=== PATIENT | male | born 1950 | race Caucasian/White ===

== ENCOUNTER → 2018-03-24 13:01 | Outpatient (CLI) | payer MEDICARE, OTHER, SELFPAY ==
--- NOTE | 2018-03-24 | DI.CT.S_ITS ---
PROCEDURE: CT ABDOMEN PELVIS WO/W CON INDICATIONS: Gross hematuria TECHNIQUE: Optional 5 mm thick noncontrast images acquired from the diaphragm to the symphysis pubis. After the administration of intravenous contrast, 5 mm thick images acquired from the diaphragm to the symphysis pubis after a 10-minute delay. 2 mm thick coronal and sagittal reformats were then performed of the kidneys and ureters. For radiation dose reduction, the following was used: automated exposure control, adjustment of mA and/or kV according to patient size. COMPARISON: [facility], MR, ABDOMEN W&WO CONTRAST, 04/18/2017, 11:02. [facility], CT, ABDOMEN/PELVIS WITH CONTRAST, 09/13/2013, 20:13. FINDINGS: Image quality: Excellent. Lung bases: Lung bases are clear. Heart size is normal. Urinary system: The left kidney is surgically absent. The right kidney is normal in size without hydronephrosis. Cortical scarring is present at the superior pole of the right kidney suggesting prior infection or infarct. A subcentimeter low-density cystic lesion is present within the midpole of the right kidney. 2 nonobstructing 5 mm in diameter calculi are present within the lower pole the right kidney. No perinephric fat stranding. Normal right renal enhancement. The calyces of the right kidney demonstrate normal morphology. There is a questionable soft tissue mass within the left renal fossa versus nondilated small bowel (series 3, image 40). Eccentric wall thickening is present along the posterior left bladder wall. The bladder wall is otherwise thin throughout. Other solid organs: Liver is normal in size and enhancement. A low density subcentimeter cystic lesion is present within hepatic segment unchanged from the study from 2013. Gallbladder is unremarkable. Biliary system is non dilated. Pancreas enhances normally. Spleen is likely absent. No adrenal nodules. Peritoneum and bowel: Bowel loops demonstrate normal wall thickness and caliber. The appendix is thin walled and gas filled. Anastomotic suture is present within the descending colon suggesting prior partial colectomy. No free fluid or air. Nodes and vessels: No retroperitoneal or mesenteric adenopathy by size criteria. Aorta and inferior vena cava are normal in size. There are scattered atheromatous calcifications throughout the aorta and iliac arteries bilaterally. Abdominal wall: No ventral hernias. Pelvis: No pathologic free pelvic fluid. No inguinal hernias or adenopathy. A penile implant pump is present in the right lower quadrant. The prostate has a heterogeneous, enlarged appearance and extends into the floor of the bladder. Bones: No suspicious bony lesions. No vertebral body compression fractures. Severe degenerative changes are present throughout the lumbar spine. IMPRESSION: 1. Nonobstructive right nephrolithiasis. 2. Questionable soft tissue mass in the bed of the prior left nephrectomy versus splenule or redundant loop of small bowel. CT of the abdomen after oral contrast administration is recommended to differentiate true mass from small bowel. 3. No right hydronephrosis, hydroureter, or right ureterolithiasis. 4. Markedly enlarged, heterogeneous prostate. Differential considerations include hypertrophy and neoplasm. 5. Eccentric thickening of the posterior left bladder wall. Neoplasm cannot be excluded and direct visualization may be helpful to further characterize this finding. Dictated by: Clemencia Shrestha M.D. on 03/24/2018 at 17:03 Approved by: Clemencia Shrestha M.D. on 03/24/2018 at 17:16
== END ==
PROVIDERS: PCP Family Medicine; Visit Provider Urology
DX: N20.0 Calculus of kidney (principal)
CPT/HCPCS: 74178; Q9967

== ENCOUNTER → 2018-04-11 09:13 | Outpatient (CLI) | payer MEDICARE, OTHER, SELFPAY ==
--- NOTE | 2018-04-11 09:18 | DI.CT.S_ITS ---
PROCEDURE: CT ABDOMEN PELVIS W CON INDICATIONS: LEFT UPPER QUADRANT ABDOMINAL SWELLING, MASS LUMP TECHNIQUE: After the administration of oral contrast and intravenous contrast, 5 mm thick sections acquired from the diaphragms to the symphysis. 5 mm thick coronal and sagittal reformats were acquired. For radiation dose reduction, the following was used: automated exposure control, adjustment of mA and/or kV according to patient size. COMPARISON: [facility], CT, ABDOMEN/PELVIS WITH CONTRAST, 09/13/2013, 20:13. [facility], MR, ABDOMEN W&WO CONTRAST, 04/18/2017, 11:02. [facility], CT, CT ABDOMEN PELVIS WO/W CON, 03/24/2018, 13:32. FINDINGS: Image quality: Excellent. ABDOMEN: Lung bases: Lung bases are clear. Heart size is normal. Solid organs: Liver is normal in size and enhancement. Gallbladder shows normal wall thickness. Biliary system is non-dilated. Pancreas enhances normally. Spleen is surgically absent. No right adrenal nodules. Left kidney and adrenal gland are surgically absent. No right hydronephrosis, nonobstructive right renal calculi again noted in the lower pole collecting system. Chronic scarring in the upper pole of the right kidney. Again noted in the left renal fossa, immediately medial to the tail of pancreas, is a circumscribed, enhancing soft tissue mass that measures 3.1 x 5.1 cm on current study. There is opacified bowel overlying the mass, but the mass does not represent bowel. It is likely a splenic remnant or splenule. Bowel and peritoneum: Stomach, small and large bowel loops are normal in caliber and wall thickness. Prior partial descending colon resection again noted. No free fluid or air. Nodes and vessels: No retroperitoneal or mesenteric adenopathy by size criteria. Aorta and inferior vena are normal in caliber. Miscellaneous: No ventral hernias. PELVIS: Genitourinary: Bladder wall thickness appears normal, the irregularity along the left lateral margin less apparent on current study. Prostatic enlargement the with heterogeneous enhancement and dystrophic calcifications protruding into the minor base is again noted. Penile prosthesis again noted. Miscellaneous: No inguinal hernias or adenopathy. Bones: No suspicious bony lesions. Degenerative disc disease and postoperative changes lumbar spine with grade 1 anterolisthesis at L4-5. Mild anterior wedging T10, T11 and T12. No acute vertebral body compression fractures. IMPRESSION: 1. Postoperative changes of prior bowel resection, left nephrectomy and splenectomy. The 3 x 5 cm soft tissue mass in the left renal fossa is likely a splenic remnant or splenule. Possibility of tumor mass cannot be excluded. The mass might be visible by sonography for future followup, otherwise noncontrast CT abdomen and 6-12 months is advised.. 2. Right nephrolithiasis without hydronephrosis. 3. Marked enlargement of the prostate. Prostate cancer cannot be excluded. 4. Status post penile prosthesis. Dictated by: Vishal Chowdhury M.D. on 04/11/2018 at 12:54 Approved by: Vishal Chowdhury M.D. on 04/11/2018 at 13:30
[2018-04-11 09:45] LABS: BUN Creatinine Ratio 30.9 (6-22); Estimated Glomerular Filt Rate > 60.0 mL/min (>60)
== END ==
PROVIDERS: PCP Family Medicine; Visit Provider Urology
DX: R19.02 Left upper quadrant abdominal swelling, mass and lump (principal); N20.0 Calculus of kidney; N40.0 Benign prostatic hyperplasia without lower urinary tract symptoms
CPT/HCPCS: 36415; 74178; 82565; 84520

== ENCOUNTER 2019-09-09 09:15 | Inpatient (IN) | payer MEDICARE, OTHER, SELFPAY ==
[2019-09-09] VITALS (18 sets, daily range): BP systolic 87–195; BP diastolic 43–115; PULSE 64–94; RESP 15–23; TEMP 36.1–37.4; O2SAT 92–100; BMI 28.6
--- NOTE | 2019-09-09 | PATH_ITS ---
[facility] Accession Number: [id number] . 01 Material submitted: . back - BACK . 01 Clinical history: . ABSCESS TISSUE . 02 Diagnosis: Back, Abscess Tissue, Biopsy: Multiple fragments of keratin flakes and scant active inflammation, consistent with epidermoid inclusion cyst contents. [facility] 09/11/2019 1128 Local . 02 Electronically signed: . Modesta Patton MD, Pathologist NPI- [id number] . 01 Gross description: . BACK: Received in formalin is 1 fragment of luke friable tissue measuring 2.0 x 1.5 x 0.5 cm. Tissue is inked. Specimen is sectioned and submitted in its entirety in 1 cassette. /[facility] [place] 09/10/2019 1812 Local . 02 Pathologist provided ICD-10: L02.91 . 02 CPT . 140139 Performed at: 01 [facility] [address] [place] [address], [place], [place] [id number] MD aCrlos Walker MD Phone: [phone] [facility]formed at: [facility] [address] [place], [place] [id number] MD Modesta Patton MD Phone: [phone]
--- NOTE | 2019-09-09 09:26 | ED.BACK ---
HPI - Back Pain/Injury General Chief Complaint: Back Pain/Injury Stated Complaint: ? Ibrance problems Time Seen by Provider: 09/09/19 09:20 Source: patient Mode of arrival: Ambulatory Limitations: no limitations History of Present Illness HPI Narrative: Male nonsmoker with history of an unspecified type of cancer takes chemotherapy 3 weeks on and 1 week off, which is managed by MD Fatima in [place] presents with severe back pain worsening over the past few days. He denies any injury. He denies any systemic findings such as fever or shaking chills. He denies any other symptoms such as dizziness, weakness or lightheadedness. He is a very poor historian, he states he has been trying to get to the hospital for a few days but his pain was too bad. He has a scar on his back but doesn't know what his surgical history is. He states his inability to answer these questions is normal for him. Complaint: back pain Onset (ago): day(s) Duration: constant Similar Symptoms Previously: No Location: lumbar spine and thoracic spine Severity: moderate Quality: burning and sharp Radiation: none Relieving factors: none Exacerbating factors: walking Associated symptoms: denies other symptoms Related Data Home Medications Medication Instructions Recorded Confirmed palbociclib [Ibrance] 125 mg PO DAILY 09/09/19 09/09/19 Allergies Allergy/AdvReac Type Severity Reaction Status Date / Time No Known Drug Allergies Allergy Verified 09/09/19 09:25 Review of Systems Constitutional Constitutional: Denies chills, Denies fatigue, Denies fever(s), Denies frequent falls, Denies lethargy and Denies weakness Eyes Eyes: Denies change in vision, Denies eye discharge, Denies irritation and Denies loss of vision ENT Ears, Nose, Mouth, and Throat: Denies change in voice, Denies dizziness, Denies neck pain, Denies sore throat and Denies throat swelling Cardiovascular Cardiovascular: Denies chest pain, Denies irregular heart rhythm, Denies lightheadedness, Denies palpitations, Denies dyspnea, Denies dyspnea on exertion and Denies orthopnea Respiratory Respiratory: Denies cough, Denies dyspnea, Denies dyspnea on exertion and Denies wheezing Gastrointestinal Gastrointestinal: Denies abdominal pain, Denies change in bowel habits, Denies diarrhea, Denies nausea and Denies vomiting Genitourinary Genitourinary: Denies hematuria, Denies flank pain, Denies urinary incontinence and Denies urinary urgency Musculoskeletal Musculoskeletal: Reports back pain, Denies muscle weakness, Denies neck pain, Denies numbness and Denies tingling Integumentary/Breasts Skin/Breast: Denies pruritus, Denies erythema, Denies rash and Denies wounds Neurologic Neurologic: Denies behavioral changes, Denies confusion, Denies dizziness, Denies frequent falls, Denies loss of vision, Denies numbness, Denies tingling and Denies weakness Psychiatric Psychiatric: Denies anxiety, Denies behavioral changes, Denies confusion, Denies depression, Denies homicidal ideation and Denies suicidal ideation Endocrine Endocrine: Denies fatigue, Denies flushing and Denies palpitations Hematologic/Lymphatic Hematologic/Lymphatic: Denies easy bruising Allergic/Immunologic Allergic/Immunologic: Denies urticaria, Denies throat swelling and Denies wheezing Patient History Medical History (Updated 09/09/19 @ 17:41 by Lida Hussein RN) Sarcoma of retroperitoneum (Acute) Spinal cord injury (Acute) Surgical History (Updated 09/09/19 @ 17:37 by Ramon Castellano MD) H/O splenectomy (Acute) Hx of partial adrenalectomy (Acute) Social History household members: other Smoking Status: Former smoker alcohol intake: never Exam Narrative Exam Narrative: GENERAL: [69] year old patient appears stated age. Well-nourished, well-developed patient, in obvious pain HEAD: Atraumatic. Normocephalic. EYES: Pupils equal round and reactive. Extraocular motions intact. No scleral icterus. No injection or drainage. ENT: Nose without bleeding, purulent drainage. Throat without erythema, tonsillar hypertrophy or exudate. Airway patent. NECK: Trachea midline. Non tender CARDIOVASCULAR: Regular rate and rhythm without murmurs, gallops, or rubs. RESPIRATORY: Clear to auscultation. Breath sounds equal bilaterally. No wheezes, rales, or rhonchi. GASTROINTESTINAL: Abdomen soft, non-tender, nondistended. EXTREMITIES: No edema or joint tenderness. BACK: Midline incision with warm, red and tender, fluctuant mass at the superior aspect, patient yells in pain when touched even lightly NEURO: AOx3. SKIN: No rash or erythema of visible areas Initial Vital Signs Initial Vital Signs: Vital Signs Temperature 96.9 F L 09/09/19 09:25 Pulse Rate 86 09/09/19 09:25 Respiratory Rate 16 09/09/19 09:25 Blood Pressure 107/72 09/09/19 09:25 Pulse Oximetry 97 09/09/19 09:25 Course Orders Ordered: ED Orders 09/09/19 10:10 Basic Metabolic Panel Stat C-Reactive Protein Quant Stat Complete Blood Count AUTO DIFF Stat Erythrocyte Sedimentation Rate Stat Lactate (Lactic Acid) Stat Procalcitonin Stat 09/09/19 10:40 Blood Culture Stat 09/09/19 11:15 CT abdomen pelvis w con Stat 09/09/19 11:30 Urinalysis and Microscopic Stat Heparin Sodium (Porcine) (Heparin) 5,000 unit SUBCUT BID YOKASTA Lactated Ringer's (Lactated Ringers) 1,000 mls @ 42 mls/hr IV NOW ONE Stop: 09/10/19 17:58 Last Admin: 09/09/19 18:11 Dose: 42 mls/hr Documented by: ROBEL Discontinued Medications Vancomycin HCl/Dextrose (Vancomycin) 1,500 mg in 300 mls @ 200 mls/hr IV NOW ONE Stop: 09/09/19 18:21 Piperacillin/Tazobactam/Dextrose (Zosyn) 3.375 gm in 50 mls @ 100 mls/hr IV NOW ONE Stop: 09/09/19 17:21 Last Infusion: 09/09/19 18:25 Dose: 0 mls/hr Documented by: Admin: 09/09/19 18:15 Dose: 100 mls/hr Documented by: ALAINA Toussaint Consultation #1: Upon receipt of CT scan I contacted the patient's oncologist at [facility]. She was actually quite pleased with the progress of the underlying mass and states that based on the description it would seem that the chemotherapy is in fact working. Consultation #2: general surgery consulted. will take to OR, admit to medicine. Vital Signs Vital signs: Vital Signs - 8 hr 09/09/19 09:25 Temperature 96.9 F L Pulse Rate 86 Respiratory Rate 16 Blood Pressure 107/72 Pulse Oximetry 97 MDM - Back Pain/Injury Lab Data Result diagrams: 09/09/19 10:10 09/09/19 10:10 Labs: Lab Results 09/09/19 09/09/19 09/09/19 Range/Units 10:10 10:10 10:10 WBC 7.6 (4.5-11.0) X10^3/uL RBC 3.73 L (4.5-5.9) X10^6/uL Hgb 12.2 L (13.5-17.5) g/dL Hct 36.6 L (41-53) % MCV 98.2 (80-100) fL MCH 32.7 (26-34) PG MCHC 33.3 (30-36) % RDW 20.0 H (11.6-14.8) % Plt Count 278 (150-400) X10^3/uL Neut % (Auto) 78.8 H (50-75) % Lymph % (Auto) 14.8 L (25-40) % [place] % (Auto) 4.3 (3-14) % Eos % (Auto) 1.2 L (2-4) % Baso % (Auto) 0.9 (0-2) % Neut # (Auto) 6000 (0259-7280) /uL Lymph # (Auto) 1100 (7229-0240) /uL [place] # (Auto) 300 (0-900) /uL Eos # (Auto) 100 (0-450) /uL Baso # (Auto) 100 (0-100) /uL ESR 65 H (0-15) MM/HR Sodium (137-145) mmol/L Potassium (3.4-5.1) mmol/L Chloride (98-107) mmol/L Carbon Dioxide (22-32) mmol/L BUN (9-20) mg/dL Creatinine (0.66-1.25) mg/dL Estimated GFR (>60) mL/min BUN/Creatinine Ratio (6-22) Glucose (80-110) mg/dL Lactate (0.7-2.1) mmol/L Calcium (8.4-10.2) mg/dL C-Reactive Protein 5.8 H (<1.0) mg/dL Procalcitonin (<0.5) ng/mL Urine Color Urine Appearance Urine pH (4.5-8.0) Ur Specific [place] (1.000-1.035) Urine Protein (Negative) Urine Glucose (UA) (Negative) g/dL Urine Ketones (NEGATIVE) Urine Occult Blood (Negative) Urine Nitrate (Negative) Urine Bilirubin (NEGATIVE) Urine Urobilinogen (0.2) E.U./dL Ur Leukocyte Esterase (NEGATIVE) Urine RBC (0-5/HPF) Urine WBC (0-5/HPF) Urine Bacteria (None) Ur Culture Indicated? 09/09/19 09/09/19 09/09/19 Range/Units 10:10 10:10 10:10 WBC (4.5-11.0) X10^3/uL RBC (4.5-5.9) X10^6/uL Hgb (13.5-17.5) g/dL Hct (41-53) % MCV (80-100) fL MCH (26-34) PG MCHC (30-36) % RDW (11.6-14.8) % Plt Count (150-400) X10^3/uL Neut % (Auto) (50-75) % Lymph % (Auto) (25-40) % [place] % (Auto) (3-14) % Eos % (Auto) (2-4) % Baso % (Auto) (0-2) % Neut # (Auto) (7553-8755) /uL Lymph # (Auto) (5039-5490) /uL [place] # (Auto) (0-900) /uL Eos # (Auto) (0-450) /uL Baso # (Auto) (0-100) /uL ESR (0-15) MM/HR Sodium 143 (137-145) mmol/L Potassium 4.2 (3.4-5.1) mmol/L Chloride 104 (98-107) mmol/L Carbon Dioxide 30 (22-32) mmol/L BUN 26 H (9-20) mg/dL Creatinine 1.50 H (0.66-1.25) mg/dL Estimated GFR 46.5 L (>60) mL/min BUN/Creatinine Ratio 17.3 (6-22) Glucose 124 H (80-110) mg/dL Lactate 1.2 (0.7-2.1) mmol/L Calcium 9.5 (8.4-10.2) mg/dL C-Reactive Protein (<1.0) mg/dL Procalcitonin 0.07 (<0.5) ng/mL Urine Color Urine Appearance Urine pH (4.5-8.0) Ur Specific [place] (1.000-1.035) Urine Protein (Negative) Urine Glucose (UA) (Negative) g/dL Urine Ketones (NEGATIVE) Urine Occult Blood (Negative) Urine Nitrate (Negative) Urine Bilirubin (NEGATIVE) Urine Urobilinogen (0.2) E.U./dL Ur Leukocyte Esterase (NEGATIVE) Urine RBC (0-5/HPF) Urine WBC (0-5/HPF) Urine Bacteria (None) Ur Culture Indicated? 09/09/19 Range/Units 11:30 WBC (4.5-11.0) X10^3/uL RBC (4.5-5.9) X10^6/uL Hgb (13.5-17.5) g/dL Hct (41-53) % MCV (80-100) fL MCH (26-34) PG MCHC (30-36) % RDW (11.6-14.8) % Plt Count (150-400) X10^3/uL Neut % (Auto) (50-75) % Lymph % (Auto) (25-40) % [place] % (Auto) (3-14) % Eos % (Auto) (2-4) % Baso % (Auto) (0-2) % Neut # (Auto) (1107-4021) /uL Lymph # (Auto) (5190-4933) /uL [place] # (Auto) (0-900) /uL Eos # (Auto) (0-450) /uL Baso # (Auto) (0-100) /uL ESR (0-15) MM/HR Sodium (137-145) mmol/L Potassium (3.4-5.1) mmol/L Chloride (98-107) mmol/L Carbon Dioxide (22-32) mmol/L BUN (9-20) mg/dL Creatinine (0.66-1.25) mg/dL Estimated GFR (>60) mL/min BUN/Creatinine Ratio (6-22) Glucose (80-110) mg/dL Lactate (0.7-2.1) mmol/L Calcium (8.4-10.2) mg/dL C-Reactive Protein (<1.0) mg/dL Procalcitonin (<0.5) ng/mL Urine Color Yellow Urine Appearance Clear Urine pH 5.0 (4.5-8.0) Ur Specific [place] 1.020 (1.000-1.035) Urine Protein Negative (Negative) Urine Glucose (UA) Negative (Negative) g/dL Urine Ketones Negative (NEGATIVE) Urine Occult Blood Negative (Negative) Urine Nitrate Negative (Negative) Urine Bilirubin Negative (NEGATIVE) Urine Urobilinogen 0.2 (0.2) E.U./dL Ur Leukocyte Esterase Negative (NEGATIVE) Urine RBC None seen (0-5/HPF) Urine WBC 0-1/hpf (0-5/HPF) Urine Bacteria None seen (None) Ur Culture Indicated? Cult not indicated Discharge Plan Departure Patient Disposition: Admitted as Observation Clinical Impression: Abscess of skin or subcutaneous tissue Qualifiers: Site of cutaneous abscess: trunk Site of cutaneous abscess of trunk: back Qualified Code(s): L02.212 - Cutaneous abscess of back [any part, except buttock] Discharge Date/Time: 09/09/19 17:09 Admit Date/Time: 09/09/19 16:41 Admit Provider: Cipriano Cruz
[2019-09-09 10:25] LABS: Add Manual Diff / Slide Review NO; Basophils Absolute Auto 100 /uL (0-100); Basophils Percent Auto 0.9 % (0-2); Eosinophils Absolute Auto 100 /uL (0-450); Eosinophils Percent Auto 1.2 % (2-4); Hematocrit 36.6 % (41-53); Hemoglobin 12.2 g/dL (13.5-17.5); Lymphocytes Absolute Auto 1100 /uL (1100-4500); Lymphocytes Percent Auto 14.8 % (25-40); Mean Corpuscular HGB Conc 33.3 % (30-36); Mean Corpuscular Hemoglobin 32.7 PG (26-34); Mean Corpuscular Volume 98.2 fL (80-100); Monocytes Absolute Auto 300 /uL (0-900); Monocytes Percent Auto 4.3 % (3-14); Neutrophils Absolute Auto 6000 /uL (1500-7000); Neutrophils Percent Auto 78.8 % (50-75); Platelet Count 278 X10^3/uL (150-400); Red Blood Cell Count 3.73 X10^6/uL (4.5-5.9); White Blood Cell Count 7.6 X10^3/uL (4.5-11.0)
[2019-09-09 10:38] LABS: Erythrocyte Sedimentation Rate 65 MM/HR (0-15)
[2019-09-09 10:41] LABS: Lactate (Lactic Acid) 1.2 mmol/L (0.7-2.1)
[2019-09-09 10:42] LABS: BUN Creatinine Ratio 17.3 (6-22); Blood Urea Nitrogen 26 mg/dL (9-20); Calcium 9.5 mg/dL (8.4-10.2); Carbon Dioxide 30 mmol/L (22-32); Chloride 104 mmol/L (98-107); Estimated Glomerular Filt Rate 46.5 mL/min (>60); Glucose 124 mg/dL (80-110); HEMOLYSIS < 15 (0-50); Potassium 4.2 mmol/L (3.4-5.1); Sodium 143 mmol/L (137-145)
[2019-09-09 11:05] LABS: Procalcitonin 0.07 ng/mL (<0.5)
--- NOTE | 2019-09-09 11:12 | PC.NURSE ---
pt states he has a cancer history where the pain is currently in back.
--- NOTE | 2019-09-09 11:15 | DI.CT.S_ITS ---
PROCEDURE: CT ABDOMEN PELVIS W CON INDICATIONS: severe back pain, swelling, redness, also known CA TECHNIQUE: After the administration of intravenous contrast, 5 mm thick sections acquired from the diaphragm to the symphysis. 5 mm coronal and sagittal reformats were acquired. For radiation dose reduction, the following was used: automated exposure control, adjustment of mA and/or kV according to patient size. COMPARISON: [facility], CT, CT ABDOMEN PELVIS W CON, 04/11/2018, 11:22. FINDINGS: Image quality: Excellent. ABDOMEN: Lung bases: Lung bases are clear. Heart size is normal. Solid organs: Liver is enlarged with steatosis. Gallbladder is contracted the. Biliary system is non dilated. Pancreas enhances normally. Within the left upper quadrant, there is a low attenuation mass measuring 11.4 cm AP by 10.5 cm transverse.. Hounsfield units measure approximately 45 In addition, there is a more central focus of low attenuation measuring approximately 4 cm with faint rim enhancement. No adrenal nodules. Left adrenal gland has been removed. Left nephrectomy is present. Soft tissue masses are present within the surgical site these were present on prior exam and appear similar to minimally enlarged. Right kidney is present with nonobstructing stones, unchanged. Peritoneum and bowel: Bowel loops demonstrate normal wall thickness and caliber. No free fluid or air. Nodes and vessels: No retroperitoneal or mesenteric adenopathy by size criteria. Aorta and inferior vena cava are normal in size. Miscellaneous: No ventral hernias. There is a focus of fluid with defined ring enhancement in the posterior subcutaneous tissues extending to the skin surface at approximately the level of T12 measuring 24 cm AP by 39 mm transverse. There is an ill-defined fluid without surrounding enhancement within the midline extend within the subcutaneous tissues to the level of the sacrum without well-defined rim enhancement. Largest collection of fluid inferior to the above defined circumscribed area of enhancement measures approximately 1.4 cm AP by 11.4 cm transverse. Fluid does extend to the skin surface in the left posterior midline position at approximately the level at L5. PELVIS: Genitourinary: Bladder wall thickness is normal. Prostate gland is enlarged. Miscellaneous: No inguinal hernias or adenopathy. Left vastus and rectus musculature lipomas are unchanged. Bones: No suspicious bony lesions. No vertebral body compression fractures. IMPRESSION: 1. Left nephrectomy and adrenalectomy with left upper quadrant masses appearing unchanged versus minimally increased in size compared to prior exam. In addition, a large left upper quadrant mass is identified with suspected areas of central necrosis, which is new compared to prior exam. 2. Focal areas of enhancing fluid within the subcutaneous fat at the thoracolumbar junction most consistent with abscess is identified. In addition, fluid is also noted tracking within the dorsal soft tissues to the level of the sacrum. However, more inferior is a fluid do not demonstrate rim enhancement and appear suggestive of seroma or potentially developing abscess. The above findings were discussed with Dr. Deshaun Vasquez on 09/09/19 at 12:24 PM. Dictated by: Verenice Her M.D. on 09/09/2019 at 12:23 Approved by: Verenice Her M.D. on 09/09/2019 at 13:08
[2019-09-09 11:35] LABS: C-Reactive Protein Quant 5.8 mg/dL (<1.0)
[2019-09-09 11:43] LABS: Bacteria Urine None Seen; RBC Urine None Seen (0-5/HPF)
[2019-09-09 11:45] LABS: Appearance Urine UA CLEAR; Bilirubin Urine UA NEGATIVE (NEGATIVE); Color Urine UA YELLOW; Glucose Urine UA NEGATIVE (Negative); Ketones Urine UA NEGATIVE (NEGATIVE); Leukocyte Esterase Urine UA NEGATIVE (NEGATIVE); Nitrite Urine UA NEGATIVE (Negative); Occult Blood Urine UA NEGATIVE (Negative); Protein Urine UA NEGATIVE (Negative); Urobilinogen Urine UA 0.2 E.U./dL (0.2)
[2019-09-09 11:52] LABS: WBC Urine 0-1/HPF (0-5/HPF)
[2019-09-09 12:08] LABS: Culture Indicated Urine Cult Not Indicated
--- NOTE | 2019-09-09 12:32 | PC.NURSE ---
pt exits room and states hes going to give his dog a drink of water, hes had 3 glasses of water so hes going. explained to [facility] policy. pt states i dont care, my dog is more important. asked to take out his iv. pt raises voice and zips up his coat and states i dont care what you say im going, begins to zip up his coat and walks out. pt having inappropriate behavior with staff. pt has been out once already without consenting so his IV can be removed.
--- NOTE | 2019-09-09 17:29 | P.CONS_ITS ---
History of Present Illness Consult details Date Patient Seen: 09/09/19 Time Patient Seen: 17:38 Chief complaint: ?Ibrance problems Reason for consult: back abscess Narrative: This is a 69-year-old male on chemotherapy for a retroperitoneal sa rcoma who presents with a back abscess. He began having back pain several days ago no history of recent trauma or back injury he has a remote history of laminectomy done at least a decade ago. His pain became increasingly severe promting his ER visit. No fever rigors nausea, weakness numbness or tingling, bowel or bladder incontinence. 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 It is unclear when this was performed it was done at the [facility] in [place]. He has residual disease in his left upper abdominal quandrant and he actively followed by MD Fatima, receiving an oral chemotherapy medication of unknown name. De nies any major cardiac, pulmonary or renal disease, no anticoagulants. [facility] Medical History (Updated 09/09/19 @ 17:37 by Ramon Castellano MD) Sarcoma of retroperitoneum (Acute) Surgical History (Updated 09/09/19 @ 17:37 by Ramon Castellano MD) H/O splenectomy (Acute) Hx of partial adrenalectomy (Acute) Social History household members: other Smoking Status: Former smoker alcohol intake: never Meds Home Medications and Allergies Home Medications Medication Instructions Recorded Confirmed Type palbociclib [Ibrance] 125 mg PO DAILY 09/09/19 09/09/19 History Allergies Allergy/AdvReac Type Severity Reaction Status Date / Time No Known Drug Allergies Allergy Verified 09/09/19 09:25 Exam Vital Signs (past 8 hours): - 09/09/19 16:55 Pulse Rate 77 Respiratory Rate 15 Blood Pressure [Left Arm] 117/73 Pulse Oximetry 96 Oxygen Delivery Method Room Air Narrative Exam Narrative: General-no acute distress, well nourished HEENT-moist mucous membranes, no scleral icterus Neck-supple, no lymphadenopathy Chest- non labored respirations, clear to auscultation bilaterally Cardiac-regular rate no peripheral edema Abdomen-soft, nontender, non distended Back-Warm fluctuant tender abscess thoracic to sacrum. Extremities-warm, well perfused Neurological-alert and oriented, no focal deficits Objective Labs Result Diagrams: 09/09/19:10 09/09/19 10:10 Labs: Laboratory Results - last 24 hr 09/09/19 09/09/19 09/09/19 10:10 10:10 10:10 WBC 7.6 RBC 3.73 L Hgb 12.2 L Hct 36.6 L MCV 98.2 MCH 32.7 MCHC 33.3 RDW 20.0 H Plt Count 278 Neut % (Auto) 78.8 H Lymph % (Auto) 14.8 L [place] % (Auto) 4.3 Eos % (Auto) 1.2 L Baso % (Auto) 0.9 Neut # (Auto) 6000 Lymph # (Auto) 1100 [place] # (Auto) 300 Eos # (Auto) 100 Baso # (Auto) 100 ESR 65 H Sodium Potassium Chloride Carbon Dioxide BUN Creatinine Estimated GFR BUN/Creatinine Ratio Glucose Lactate Calcium C-Reactive Protein 5.8 H Procalcitonin Urine Color Urine Appearance Urine pH Ur Specific [place] Urine Protein Urine Glucose (UA) Urine Ketones Urine Occult Blood Urine Nitrate Urine Bilirubin Urine Urobilinogen Ur Leukocyte Esterase Urine RBC Urine WBC Urine Bacteria Ur Culture Indicated? 09/09/19 09/09/19 09/09/19 10:10 10:10 10:10 WBC RBC Hgb Hct MCV MCH MCHC RDW Plt Count Neut % (Auto) Lymph % (Auto) [place] % (Auto) Eos % (Auto) Baso % (Auto) Neut # (Auto) Lymph # (Auto) [place] # (Auto) Eos # (Auto) Baso # (Auto) ESR Sodium 143 Potassium 4.2 Chloride 104 Carbon Dioxide 30 BUN 26 H Creatinine 1.50 H Estimated GFR 46.5 L BUN/Creatinine Ratio 17.3 Glucose 124 H Lactate 1.2 Calcium 9.5 C-Reactive Protein Procalcitonin 0.07 Urine Color Urine Appearance Urine pH Ur Specific [place] Urine Protein Urine Glucose (UA) Urine Ketones Urine Occult Blood Urine Nitrate Urine Bilirubin Urine Urobilinogen Ur Leukocyte Esterase Urine RBC Urine WBC Urine Bacteria Ur Culture Indicated? 09/09/19 11:30 WBC RBC Hgb Hct MCV MCH MCHC RDW Plt Count Neut % (Auto) Lymph % (Auto) [place] % (Auto) Eos % (Auto) Baso % (Auto) Neut # (Auto) Lymph # (Auto) [place] # (Auto) Eos # (Auto) Baso # (Auto) ESR Sodium Potassium Chloride Carbon Dioxide BUN Creatinine Estimated GFR BUN/Creatinine Ratio Glucose Lactate Calcium C-Reactive Protein Procalcitonin Urine Color Yellow Urine Appearance Clear Urine pH 5.0 Ur Specific [place] 1.020 Urine Protein Negative Urine Glucose (UA) Negative Urine Ketones Negative Urine Occult Blood Negative Urine Nitrate Negative Urine Bilirubin Negative Urine Urobilinogen 0.2 Ur Leukocyte Esterase Negative Urine RBC None seen Urine WBC 0-1/hpf Urine Bacteria None seen Ur Culture Indicated? Cult not indicated Assessment & Plan Assessment & Plan narrative: This is a 69-year-old male on active chemotherapy for a retroperitoneal sarcoma who presents with a soft tissue abscess of the back. Afebrile hemodynamically stable white count 8, CT abdomen pelvis reviewed demonstrates a large 30 cm abscess within the subcutaneous tissues of the midline back. Does not appear to involve his spine and he is neurologically intact. Will proceed with a incision and drainage of the abscess in OR. -NPO -Vancomycin and Zosyn
[2019-09-09] MEDS: LACTATED RINGERS 1,000 ML 42 ML IV ×2 (18:11→20:39)
[2019-09-09] MEDS: PIPERACILLIN-TAZO 3.375 GM/50 ML FROZ.PIGGY IV ×2 (18:15→23:54)
--- NOTE | 2019-09-09 18:35 | P.HP_ITS ---
History of Present Illness History of Present Illness Date Patient Seen: 09/09/19 Time Patient Seen: 17:30 Chief complaint: ?Ibrance problems Narrative: Mr. 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 Patient states that he has been having a growth on his back for the past few weeks, but today the pain became uncontrollable and he decided to come to the emergency room. The pain is located in the middle of his back, described as sharp, it does not radiate into his legs or to his upper back. It is constant, and he did not reportedly try any medications at home. He has a history of a traumatic spinal injury and subsequent hardware removal over the area that is painful. He has a notable abscess on exam that is evident over the superior aspect of his scar. He denies any fevers, chills, nausea, vomiting, abdominal pain, lower extremity weakness, numbness, or tingling. In the ED, his vital signs were notable for a mildly low blood pressure of 103/57, but fairly stable around that number and his other vitals were unremarkable. His labs for notable for a normal white count, ESR of 65, creatinine of 1.5 from baseline of 1.1 based on prior lab results. CT done showed a stable liposarcoma and a very large cutaneous abscess. Surgery was consulted and plans to take him to the OR, he will be admitted to Medicine because of his liposarcoma with chemotherapy. Patient History Medical History (Updated 09/09/19 @ 17:41 by Lida Hussein RN) Sarcoma of retroperitoneum (Acute) Spinal cord injury (Acute) Surgical History (Updated 09/09/19 @ 17:37 by Ramon Castellano MD) H/O splenectomy (Acute) Hx of partial adrenalectomy (Acute) Family & Social History Social History: household members other Prior Living Arrangements House Safety & Behavioral: Feels Safe in Current Yes Environment Been Physically Hurt or No Threatened By a Person Suicidal Ideation Description None Suicide Plan Description No Plan Tobacco & Substance use: Smoking Status Former smoker alcohol intake never Substance Use Type marijuana Meds Home Medications and Allergies Home Medications Medication Instructions Recorded Confirmed Type palbociclib [Ibrance] 125 mg PO DAILY 09/09/19 09/09/19 History Allergies Allergy/AdvReac Type Severity Reaction Status Date / Time No Known Drug Allergies Allergy Verified 09/09/19 09:25 Review of Systems Review of Systems Narrative: All other systems reviewed with the patient and are negative unless otherwise stated. Exam Vital Signs (past 8 hours): - 09/09/19 16:55 09/09/19 18:02 Temperature 98.1 F Pulse Rate 77 77 Respiratory Rate 15 15 Blood Pressure 103/57 L Blood Pressure [Left Arm] 117/73 Pulse Oximetry 96 98 Oxygen Delivery Method Room Air Narrative Exam Narrative: GENERAL APPEARANCE: Well developed, well nourished, in no acute distress. SKIN: Inspection of the skin reveals no rashes, ulcerations or petechiae. HEENT: The sclerae were anicteric and conjunctivae were pink and moist. Extraocular movements were intact and pupils were equal, round with normal accommodation. External inspection of the ears and nose showed no scars, lesions, or masses. Lips, teeth, and gums showed normal mucosa. The oral mucosa, hard and soft palate, tongue and posterior pharynx were unremarkable. NECK: Supple and symmetric. There was no thyroid enlargement, and no tenderness, or masses were felt. CHEST: Normal AP diameter and normal contour without any kyphoscoliosis. LUNGS: Auscultation of the lungs revealed no wheezes, rhonchi, or rales. CARDIOVASCULAR: There was a regular rate and rhythm without any murmurs, gallops, rubs. Peripheral pulses were 2+ and symmetric. ABDOMEN: Soft and nontender with normal bowel sounds. No ascites was noted. MUSCULOSKELETAL: Cutaneous, warm, erythematous and purulent abscess from thor acic area most prominently to sacrum. EXTREMITIES: No cyanosis, clubbing or edema. NEUROLOGIC: Alert and oriented x 3. Normal affect. Gait was normal. Strength is +5/5 in the Upper Extremities and Lower Extremities Bilaterally. Sensation to touch was normal. Objective Labs Result Diagrams: 09/09/19 10:10 09/09/19 10:10 Labs: Laboratory Results - last 24 hr 09/09/19 09/09/19 09/09/19 10:10 10:10 10:10 WBC 7.6 RBC 3.73 L Hgb 12.2 L Hct 36.6 L MCV 98.2 MCH 32.7 MCHC 33.3 RDW 20.0 H Plt Count 278 Neut % (Auto) 78.8 H Lymph % (Auto) 14.8 L [place] % (Auto) 4.3 Eos % (Auto) 1.2 L Baso % (Auto) 0.9 Neut # (Auto) 6000 Lymph # (Auto) 1100 [place] # (Auto) 300 Eos # (Auto) 100 Baso # (Auto) 100 ESR 65 H Sodium Potassium Chloride Carbon Dioxide BUN Creatinine Estimated GFR BUN/Creatinine Ratio Glucose Lactate Calcium C-Reactive Protein 5.8 H Procalcitonin Urine Color Urine Appearance Urine pH Ur Specific [place] Urine Protein Urine Glucose (UA) Urine Ketones Urine Occult Blood Urine Nitrate Urine Bilirubin Urine Urobilinogen Ur Leukocyte Esterase Urine RBC Urine WBC Urine Bacteria Ur Culture Indicated? 09/09/19 09/09/19 09/09/19 10:10 10:10 10:10 WBC RBC Hgb Hct MCV MCH MCHC RDW Plt Count Neut % (Auto) Lymph % (Auto) [place] % (Auto) Eos % (Auto) Baso % (Auto) Neut # (Auto) Lymph # (Auto) [place] # (Auto) Eos # (Auto) Baso # (Auto) ESR Sodium 143 Potassium 4.2 Chloride 104 Carbon Dioxide 30 BUN 26 H Creatinine 1.50 H Estimated GFR 46.5 L BUN/Creatinine Ratio 17.3 Glucose 124 H Lactate 1.2 Calcium 9.5 C-Reactive Protein Procalcitonin 0.07 Urine Color Urine Appearance Urine pH Ur Specific [place] Urine Protein Urine Glucose (UA) Urine Ketones Urine Occult Blood Urine Nitrate Urine Bilirubin Urine Urobilinogen Ur Leukocyte Esterase Urine RBC Urine WBC Urine Bacteria Ur Culture Indicated? 09/09/19 11:30 WBC RBC Hgb Hct MCV MCH MCHC RDW Plt Count Neut % (Auto) Lymph % (Auto) [place] % (Auto) Eos % (Auto) Baso % (Auto) Neut # (Auto) Lymph # (Auto) [place] # (Auto) Eos # (Auto) Baso # (Auto) ESR Sodium Potassium Chloride Carbon Dioxide BUN Creatinine Estimated GFR BUN/Creatinine Ratio Glucose Lactate Calcium C-Reactive Protein Procalcitonin Urine Color Yellow Urine Appearance Clear Urine pH 5.0 Ur Specific [place] 1.020 Urine Protein Negative Urine Glucose (UA) Negative Urine Ketones Negative Urine Occult Blood Negative Urine Nitrate Negative Urine Bilirubin Negative Urine Urobilinogen 0.2 Ur Leukocyte Esterase Negative Urine RBC None seen Urine WBC 0-1/hpf Urine Bacteria None seen Ur Culture Indicated? Cult not indicated Assessment & Plan Assessment & Plan narrative: Mr. 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 In the operating room, Dr. Castellano felt very near to his spinous process, however after reviewing the images with Dr. Chowdary from Orthopedic surgery he feels that the drainage was successful and there is significant amount of fat stranding in his back that is not truly abscess. 1. Cutaneous abscess, acute, present on admission - s/p I and D this evening. He does have a normal white count and no evidence of systemic illness at this time. Surgical events as noted above. -follow-up cultures from I and D -can have diet after OR - appreciate surgical management - wet to dry dressing - wound care consult in the AM - check A1c given large back abscess to asses for possible diabetes 2. Acute kidney injury with history of L neprhectomy - Cr 1.5 from baseline 1.1. - Likely secondary to abscess and infection. - agressive oral rehydration at this time - continue to follow Cr. 3. Liposarcoma - - continue home palbocicib DVT: HSQ BID Code: Full Dispo: admit as inpatient as his stay is expected to exceed two midnights. Quality VTE Deep Vein Thrombosis/Pulmonary Embolism Present on Admission: No
--- NOTE | 2019-09-09 18:36 | SUR.OPER ---
Prone on padded OR bed, head in foam head support, gel chest rolls, gel pad under knees, pillow under lower legs, toes free of pressure, arms secured on padded arm boards at <90 degrees abduction. Safety belt at thigh.
[2019-09-09] MEDS: fentaNYL 100 MCG/2 ML INJ 50 MCG IV (19:09)
--- NOTE | 2019-09-09 19:09 | PM.OP.1 ---
Operative Date/Time/Diagnoses Date of procedure: 09/09/19 Time of procedure: 19:21 Pre-op diagnosis: back abscess Post-op diagnosis: same Procedure & Clinicians Procedure: Incision of back abscess Same procedure as scheduled: Yes Indications: 69-year-old male on chemotherapy for retroperitoneal sarcoma presents with a subcutaneous abscess of his mid thoracic spine . He is taken to the operating room for incision and drainage. Surgeon: Ramon Castellano Click Yes if Unassisted: Yes Anesthesia Type: General Operative Notes Findings: 2 x 4 cm subcutaneous abscess of the midback Specimen(s): other (Back abscess) Estimated Blood Loss (mL): 10 Procedure in detail: Patient was brought to the operating room and bilateral lower extremity compression devices were applied. General anesthesia was induced and he was intubated with an endotracheal tube. He is then placed in the prone position. He was then prepped and draped in sterile fashion. He received 3.75 g of Zosyn preoperatively. Incision was made through the skin and subcutaneous tissues in the midline of the thoracolumbar region over the area of greatest fluctuance. A approximately 2 x 4 cm abscess with cavity was encountered in the subcutaneous tissues superficial to the spine. Loculations were broken with hemostat. Cultures were taken. The wound was copiously irrigated with 3 L of sterile saline. Hemostasis was achieved. The wound was then packed with moist saline gauze followed by ABD. Patient emerged from general anesthesia was extubated and transferred to the postoperative care unit in stable condition. Complications: none Post-operative Condition: stable Disposition: Acute Care
[2019-09-09] MEDS: HYDROMORPHONE 2 MG INJ 0.5 MG IV (19:10)
[2019-09-09] MEDS: LORazepam 2 MG/ML INJ 0.5 MG IV (19:14)
--- NOTE | 2019-09-09 19:25 | SUR.PHASEI ---
Patient arrived in PACU moaning and crying out in pain. Gave pain medication and anti-anxiety in PACU. Dressing CDI. Denies nausea.
--- NOTE | 2019-09-09 19:47 | SUR.PHASEI ---
Per Dr Castellano, patient to remain NPO.
[2019-09-09] MEDS: HEPARIN 5,000 UNIT/ML VIAL 5000 UNIT SUBCUT (20:48)
[2019-09-09] MEDS: VANCOMYCIN 1,000 MG/200 ML PIGGYBACK 200 MG IV (20:48)
[2019-09-10] VITALS (11 sets, daily range): BP systolic 98–109; BP diastolic 45–63; PULSE 62–69; RESP 16–19; TEMP 36.8–37.2; O2SAT 96–99
[2019-09-10] MEDS: OXYCODONE IR 5 MG TABLET PO ×3 (03:32→17:13)
[2019-09-10] MEDS: PIPERACILLIN-TAZO 3.375 GM/50 ML FROZ.PIGGY IV ×3 (05:58→18:45)
[2019-09-10 06:26] LABS: Add Manual Diff / Slide Review NO; Basophils Absolute Auto 100 /uL (0-100); Basophils Percent Auto 1.2 % (0-2); Eosinophils Absolute Auto 100 /uL (0-450); Eosinophils Percent Auto 1.2 % (2-4); Lymphocytes Absolute Auto 1100 /uL (1100-4500); Lymphocytes Percent Auto 15.7 % (25-40); Mean Corpuscular HGB Conc 33.4 % (30-36); Mean Corpuscular Volume 98.8 fL (80-100); Monocytes Absolute Auto 300 /uL (0-900); Monocytes Percent Auto 4.4 % (3-14); Neutrophils Absolute Auto 5300 /uL (1500-7000); Neutrophils Percent Auto 77.5 % (50-75); Platelet Count 252 X10^3/uL (150-400); Red Blood Cell Count 3.34 X10^6/uL (4.5-5.9); Red Cell Distribution Width 20.9 % (11.6-14.8); White Blood Cell Count 6.9 X10^3/uL (4.5-11.0)
[2019-09-10 06:31] LABS: BUN Creatinine Ratio 16.4 (6-22); Blood Urea Nitrogen 23 mg/dL (9-20); Calcium 8.5 mg/dL (8.4-10.2); Carbon Dioxide 26 mmol/L (22-32); Chloride 104 mmol/L (98-107); Estimated Glomerular Filt Rate 50.4 mL/min (>60); Glucose 114 mg/dL (80-110); HEMOLYSIS < 15 (0-50); Magnesium 1.9 mg/dL (1.6-2.3); Potassium 4.3 mmol/L (3.4-5.1); Sodium 138 mmol/L (137-145)
[2019-09-10 06:45] LABS: Hemoglobin A1C% w Est Avg Glu 5.6 % (4.0-6.0)
[2019-09-10 06:49] LABS: Anisocytosis 1+
--- NOTE | 2019-09-10 08:14 | P.PN_ITS ---
Subjective Subjective Date Patient Seen: 09/10/19 Time Patient Seen: 08:17 Interval history: No acute overnight events. No fever. Back pain significantly improved over the past 12 hours the patient is now able to the rest comfortably on his back. Exam Vital Signs (past 8 hours): - 09/10/19 00:43 09/10/19 01:36 09/10/19 02:00 Temperature Pulse Rate Respiratory Rate Blood Pressure 98/59 L 109/63 Pulse Oximetry 96 09/10/19 04:03 Temperature 98.7 F Pulse Rate 67 Respiratory Rate 18 Blood Pressure 99/52 L Pulse Oximetry 97 Oxygen Delivery Method Room Air Oxygen Flow Rate 0 Narrative Exam Narrative: General adult male alert oriented no acute distress Back wound clean without purulence no surrounding cellulitis. Objective Labs Result Diagrams: 09/10/19 05:50 09/10/19 05:50 Labs: Laboratory Results - last 24 hr 09/09/19 09/09/19 09/09/19 10:10 10:10 10:10 WBC 7.6 RBC 3.73 L Hgb 12.2 L Hct 36.6 L MCV 98.2 MCH 32.7 MCHC 33.3 RDW 20.0 H Plt Count 278 Neut % (Auto) 78.8 H Lymph % (Auto) 14.8 L [place] % (Auto) 4.3 Eos % (Auto) 1.2 L Baso % (Auto) 0.9 Neut # (Auto) 6000 Lymph # (Auto) 1100 [place] # (Auto) 300 Eos # (Auto) 100 Baso # (Auto) 100 RBC Morphology Anisocytosis ESR 65 H Sodium Potassium Chloride Carbon Dioxide BUN Creatinine Estimated GFR BUN/Creatinine Ratio Glucose Hemoglobin A1c Lactate Calcium Magnesium C-Reactive Protein 5.8 H Procalcitonin Urine Color Urine Appearance Urine pH Ur Specific [place] Urine Protein Urine Glucose (UA) Urine Ketones Urine Occult Blood Urine Nitrate Urine Bilirubin Urine Urobilinogen Ur Leukocyte Esterase Urine RBC Urine WBC Urine Bacteria Ur Culture Indicated? 09/09/19 09/09/19 09/09/19 10:10 10:10 10:10 WBC RBC Hgb Hct MCV MCH MCHC RDW Plt Count Neut % (Auto) Lymph % (Auto) [place] % (Auto) Eos % (Auto) Baso % (Auto) Neut # (Auto) Lymph # (Auto) [place] # (Auto) Eos # (Auto) Baso # (Auto) RBC Morphology Anisocytosis ESR Sodium 143 Potassium 4.2 Chloride 104 Carbon Dioxide 30 BUN 26 H Creatinine 1.50 H Estimated GFR 46.5 L BUN/Creatinine Ratio 17.3 Glucose 124 H Hemoglobin A1c Lactate 1.2 Calcium 9.5 Magnesium C-Reactive Protein Procalcitonin 0.07 Urine Color Urine Appearance Urine pH Ur Specific [place] Urine Protein Urine Glucose (UA) Urine Ketones Urine Occult Blood Urine Nitrate Urine Bilirubin Urine Urobilinogen Ur Leukocyte Esterase Urine RBC Urine WBC Urine Bacteria Ur Culture Indicated? 09/09/19 09/10/19 09/10/19 11:30 05:50 05:50 WBC 6.9 RBC 3.34 L Hgb 11.0 L Hct 33.0 L MCV 98.8 MCH 33.0 MCHC 33.4 RDW 20.9 H Plt Count 252 Neut % (Auto) 77.5 H Lymph % (Auto) 15.7 L [place] % (Auto) 4.4 Eos % (Auto) 1.2 L Baso % (Auto) 1.2 Neut # (Auto) 5300 Lymph # (Auto) 1100 [place] # (Auto) 300 Eos # (Auto) 100 Baso # (Auto) 100 RBC Morphology See below Anisocytosis 1+ H ESR Sodium 138 Potassium 4.3 Chloride 104 Carbon Dioxide 26 BUN 23 H Creatinine 1.40 H Estimated GFR 50.4 L BUN/Creatinine Ratio 16.4 Glucose 114 H Hemoglobin A1c Lactate Calcium 8.5 Magnesium 1.9 C-Reactive Protein Procalcitonin Urine Color Yellow Urine Appearance Clear Urine pH 5.0 Ur Specific [place] 1.020 Urine Protein Negative Urine Glucose (UA) Negative Urine Ketones Negative Urine Occult Blood Negative Urine Nitrate Negative Urine Bilirubin Negative Urine Urobilinogen 0.2 Ur Leukocyte Esterase Negative Urine RBC None seen Urine WBC 0-1/hpf Urine Bacteria None seen Ur Culture Indicated? Cult not indicated 09/10/19 05:50 WBC RBC Hgb Hct MCV MCH MCHC RDW Plt Count Neut % (Auto) Lymph % (Auto) [place] % (Auto) Eos % (Auto) Baso % (Auto) Neut # (Auto) Lymph # (Auto) [place] # (Auto) Eos # (Auto) Baso # (Auto) RBC Morphology Anisocytosis ESR Sodium Potassium Chloride Carbon Dioxide BUN Creatinine Estimated GFR BUN/Creatinine Ratio Glucose Hemoglobin A1c 5.6 Lactate Calcium Magnesium C-Reactive Protein Procalcitonin Urine Color Urine Appearance Urine pH Ur Specific [place] Urine Protein Urine Glucose (UA) Urine Ketones Urine Occult Blood Urine Nitrate Urine Bilirubin Urine Urobilinogen Ur Leukocyte Esterase Urine RBC Urine WBC Urine Bacteria Ur Culture Indicated? Assessment & Plan Post-op Postoperative Procedures: Procedures Operation Date: 09/09/19 17:35 Actual Procedures Side Surgeon p Incision and Drainage Wound/General Ramon Castellano MD Postoperative status narrative: 69-year-old male on POD 1 sp I&D of back abscess on chemotherapy for retroperitoneal sarcoma. -follow-up wound culture -continue antibiotics -wet-to-dry dressing change twice daily will need to establish home health for wound care Quality VTE Deep Vein Thrombosis/Pulmonary Embolism Present on Admission: No
[2019-09-10] MEDS: VANCOMYCIN 1,000 MG/200 ML PIGGYBACK 200 MG IV ×2 (10:04→20:10)
[2019-09-10] MEDS: HEPARIN 5,000 UNIT/ML VIAL 5000 UNIT SUBCUT ×2 (10:05→20:10)
--- NOTE | 2019-09-10 16:25 | PC.NURSE ---
Addendum entered by Enoc Pascal R.N. 09/10/19 22:41: Only two peices of wet gauze were placed in the open wound and much of the wound is left unpacked due to the uncooperation of the patient. ABD. pad was placed over the top with hyperfix tape to secure. Addendum entered by Enoc Pascal R.N. 09/10/19 22:32: Attempted wet to dry drg. change with patient. Patient tolerated removal of packing Okay was cussing at nurse and needed freq. moments of rest between removal. Patient did well w/ deep breathing upon req. during removal. Patient didn't tolerate packing with wet gauze. Patient was yelling and using inappropriate language with nurse, refused to allow nurse to go any further with packing. This nurse was not able to properly pack wound and patient was not willing to cont. with drg. change and was not willing to allow the nurse to even cover drg. After long discussion and post pain medication given (PO) would he allow nurse to only cover wound. Patient was very angry and inappropriate with staff, stating this is bullshit and I will not do another drg. change with out IV medication. Nurse was agreeable to ask provider for pain meds prior to drg. changes. 25mg Fentynl IV per NOC PA. Original Note: patient in room, used call light to use BR but was impulsive getting up. Patient yelling and screaming at staff members and being verbally inappropriate and verbally abusive with this nurse. States You clearly don't care about kids, we have an emergency over these kids. Patient prior to altercation was calm and resting in bed. Patient was yelling and clinching fist, threatened throw the phone out the window and break the glass. Patient repeatedly demanding this nurse to go through all the contacts on the [employer] directory, until he heard a name that sounded familiar to him. Informed patient that it would be more effective for time to have a name of someone that can help him check on the kids while he was in the hospital. A contact was found to patient, call was placed for patient and transf. into room. Patient is calmly speaking with contact at this time.
--- NOTE | 2019-09-10 21:01 | PM.PN.1 ---
Subjective Subjective Date Patient Seen: 09/10/19 Time Patient Seen: 09:35 Interval history: Mr. 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 He is doing well today, although he was threatening to leave against medical advice to take care of children inside his home that he was very concerned about. I discussed the case with Dr. Daigle from wound care and he will be seen as an outpatient and he recommended continuing wet to dry dressings at this time. We are currently awaiting final cultures before final antibiotic selection and discharge home. Exam Vital Signs (past 8 hours): - 09/10/19 15:33 09/10/19 16:24 09/10/19 20:00 Temperature 98.3 F 99.0 F Pulse Rate 62 68 Respiratory Rate 18 16 Blood Pressure 98/47 L 107/54 L Pulse Oximetry 96 96 99 Oxygen Delivery Method Room Air Oxygen Flow Rate 0 Narrative Exam Narrative: GENERAL APPEARANCE: Well developed, well nourished, in no acute distress. SKIN: Inspection of the skin reveals no rashes, ulcerations or petechiae. HEENT: The sclerae were anicteric and conjunctivae were pink and moist. Extraocular movements were intact and pupils were equal, round with normal accommodation. External inspection of the ears and nose showed no scars, lesions, or masses. Lips, teeth, and gums showed normal mucosa. The oral mucosa, hard and soft palate, tongue and posterior pharynx were unremarkable. NECK: Supple and symmetric. There was no thyroid enlargement, and no tenderness, or masses were felt. CHEST: Normal AP diameter and normal contour without any kyphoscoliosis. LUNGS: Auscultation of the lungs revealed no wheezes, rhonchi, or rales. CARDIOVASCULAR: There was a regular rate and rhythm without any murmurs, gallops, rubs. Peripheral pulses were 2+ and symmetric. ABDOMEN: Soft and nontender with normal bowel sounds. No ascites was noted. MUSCULOSKELETAL: Back incision site with wet to dry dressing which is intact, improved tenderness on exam. Mild surrounding erythema improving. EXTREMITIES: No cyanosis, clubbing or edema. NEUROLOGIC: Alert and oriented x 3. Normal affect. Gait was normal. Strength is +5/5 in the Upper Extremities and Lower Extremities Bilaterally. Sensation to touch was normal. Objective Labs Result Diagrams: 09/10/19 05:50 09/10/19 05:50 Labs: Laboratory Results - last 24 hr 09/10/19 09/10/19 09/10/19 05:50 05:50 05:50 WBC 6.9 RBC 3.34 L Hgb 11.0 L Hct 33.0 L MCV 98.8 MCH 33.0 MCHC 33.4 RDW 20.9 H Plt Count 252 Neut % (Auto) 77.5 H Lymph % (Auto) 15.7 L [place] % (Auto) 4.4 Eos % (Auto) 1.2 L Baso % (Auto) 1.2 Neut # (Auto) 5300 Lymph # (Auto) 1100 [place] # (Auto) 300 Eos # (Auto) 100 Baso # (Auto) 100 RBC Morphology See below Anisocytosis 1+ H Sodium 138 Potassium 4.3 Chloride 104 Carbon Dioxide 26 BUN 23 H Creatinine 1.40 H Estimated GFR 50.4 L BUN/Creatinine Ratio 16.4 Glucose 114 H Hemoglobin A1c 5.6 Calcium 8.5 Magnesium 1.9 Assessment & Plan Assessment & Plan narrative: Mr. 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 In the operating room, Dr. Castellano felt very near to his spinous process, however after reviewing the images with Dr. Chowdary from Orthopedic surgery he feels that the drainage was successful and there is significant amount of fat stranding in his back that is not truly abscess. He remains on broad antibiotics pending surgical cultures. 1. Cutaneous abscess, acute, present on admission - s/p I and D. He had a normal white count and no evidence of systemic illness time of admission. Surgical events as noted above. -follow-up cultures from I and D - appreciate surgical management - wet to dry dressing - wound care referral to Dr. Daigle, agrees to see patient in his clinic after discharge. - checked A1c given large back abscess to asses for possible diabetes, the result was 5.6. 2. Acute kidney injury with history of L neprhectomy - Cr 1.5 from baseline 1.1. Improved slightly today to 1.4. He is s/p IVF in the ED. - Likely secondary to abscess and infection. - agressive oral rehydration at this time - continue to follow Cr. 3. Liposarcoma - - continue home palbocicib 4. Pre-diabetes, new diagnosis - - lifestyle modifications. DVT: HSQ BID Code: Full Dispo: admit as inpatient as his stay is expected to exceed two midnights. Quality VTE Deep Vein Thrombosis/Pulmonary Embolism Present on Admission: No
[2019-09-10] MEDS: OXYCODONE IR 10 MG TABLET PO (22:21)
[2019-09-11] MEDS: PIPERACILLIN-TAZO 3.375 GM/50 ML FROZ.PIGGY IV ×2 (00:05→05:58)
--- NOTE | 2019-09-11 02:48 | PC.NURSE ---
Shift note: Received pt from evening shift. Pt was lying in bed at time of assessment, became very agitated and hostile with NETWORK [employer]ABLE INSTALLER and this RN initially, using foul language regarding being in the hospital stating that he's going to miss my flight to [place], asked pt what was in [place] and pt replied [facility] which pt reports is where he gets cancer treatment. Pt liberally used curse words to describe his feelings about [place] and this hospital withholding my cancer treatment which is killing me. Pt at one point asked this RN to just stab me in my stomach now then saying that he wants to . Later states that people are trying to murder me and when asked to elaborate, pt would not but said how do I go from protection to murder? Pt does not answer questions directly, goes in a roundabout way in answering, would wax and wane from hostile and suspicious to calm and cooperative. Pt is slightly hypotensive, but ambulates with no dizziness or SOB, other VSS and on RA. Pt is a high fall risk d/t mentation, impulsivity and POC. Pt stated I don't know how to use the call light but refuses education on it. Dressing on back has moderate serosanguineous drainage. Door open to monitor pt for bed exiting.
[2019-09-11 05:55] VITALS: BP 104/53; PULSE 68; RESP 19; TEMP 37.1; O2SAT 98
[2019-09-11] MEDS: OXYCODONE IR 10 MG TABLET PO (05:57)
[2019-09-11 06:26] LABS: Basophils Absolute Auto 100 /uL (0-100); Basophils Percent Auto 1.1 % (0-2); Eosinophils Absolute Auto 100 /uL (0-450); Eosinophils Percent Auto 1.6 % (2-4); Hematocrit 30.8 % (41-53); Hemoglobin 10.5 g/dL (13.5-17.5); Lymphocytes Absolute Auto 1700 /uL (1100-4500); Lymphocytes Percent Auto 24.2 % (25-40); Mean Corpuscular Hemoglobin 33.1 PG (26-34); Mean Corpuscular Volume 97.5 fL (80-100); Monocytes Absolute Auto 400 /uL (0-900); Monocytes Percent Auto 5.6 % (3-14); Neutrophils Absolute Auto 4900 /uL (1500-7000); Neutrophils Percent Auto 67.5 % (50-75); Platelet Count 245 X10^3/uL (150-400); Red Blood Cell Count 3.16 X10^6/uL (4.5-5.9); Red Cell Distribution Width 20.8 % (11.6-14.8); White Blood Cell Count 7.2 X10^3/uL (4.5-11.0)
[2019-09-11 06:27] LABS: Add Manual Diff / Slide Review SLIDE REVIEW; BUN Creatinine Ratio 15.7 (6-22); Blood Urea Nitrogen 22 mg/dL (9-20); Calcium 8.3 mg/dL (8.4-10.2); Carbon Dioxide 27 mmol/L (22-32); Chloride 104 mmol/L (98-107); Estimated Glomerular Filt Rate 50.4 mL/min (>60); Glucose 99 mg/dL (80-110); HEMOLYSIS < 15 (0-50); Magnesium 1.9 mg/dL (1.6-2.3); Potassium 4.1 mmol/L (3.4-5.1); Sodium 138 mmol/L (137-145)
[2019-09-11 07:20] LABS: Anisocytosis 1+
[2019-09-11 08:40] VITALS: O2SAT 97
[2019-09-11 08:45] VITALS: BP 114/88; PULSE 68; RESP 18; TEMP 36.3; O2SAT 97
[2019-09-11 09:42] LABS: Vancomycin Trough 10.3 ug/mL (10-20)
--- NOTE | 2019-09-11 10:23 | P.DS_ITS ---
History of Present Illness History of Present Illness Date Patient Seen: 09/09/19 Chief complaint: ?Ibrance problems Narrative: Written by Dr. Cruz: Mr. 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 Patient states that he has been having a growth on his back for the past few weeks, but today the pain became uncontrollable and he decided to come to the emergency room. The pain is located in the middle of his back, described as sharp, it does not radiate into his legs or to his upper back. It is constant, and he did not reportedly try any medications at home. He has a history of a traumatic spinal injury and subsequent hardware removal over the area that is painful. He has a notable abscess on exam that is evident over the superior aspect of his scar. He denies any fevers, chills, nausea, vomiting, abdominal pain, lower extremity weakness, numbness, or tingling. In the ED, his vital signs were notable for a mildly low blood pressure of 103/57, but fairly stable around that number and his other vitals were unremarkable. His labs for notable for a normal white count, ESR of 65, creatinine of 1.5 from baseline of 1.1 based on prior lab results. CT done showed a stable liposarcoma and a very large cutaneous abscess. Surgery was c onsulted and plans to take him to the OR, he will be admitted to Medicine because of his liposarcoma with chemotherapy. Discharge Providers Provider Date of admission: 09/09/19 16:41 Discharge Date: 09/11/19 Consults: 09/10/19 07:48 Consult to Wound Care Routine Comment: Consulting Provider: [facility] 09/11/19 14:24 Consult to Home Health Routine Comment: Reason For Exam: Home Health RN for wound care Discharge provider: Madyson Croft DO Summary Hospital Course Discharge Diagnosis: 1. Acute cutaneous abscess of back, status post I&D, present on admission. Resolving. 2. Acute kidney injury, with history of L nephrectomy, present on admission. Resolving. 3. Liposarcoma, chronic, present on admission. Stable. 4. Diabetes and prediabetes ruled out. 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 In the operating room, Dr. Castellano felt very near to his spinous process, however after reviewing the images with Dr. Chowdary from Orthopedic surgery he feels that the drainage was successful and there is significant amount of fat stranding in his back that is not truly abscess. He remains on broad antibiotics pending surgical cultures. 1. Acute cutaneous abscess of back, status post I&D, present on admission. Resolving. -He had a normal white count and no evidence of systemic illness time of admission. Surgical events as noted above. -Consulted general surgery, Dr. Castellano, who performed I&D. We appreciate his time and care of the patient. -Continued Zosyn 3.375 g IV every 6 hours and discharged on Augmentin twice daily to complete 7 days total. Wound cultures have no growth to date except one culture which grew staph epidermidis sensitive to oxacillin and likely contaminate. Patient was on antibiotics at time of wound culture and likely reason no organisms isolated. Blood cultures have no growth to date. -Patient was increasingly impatient and attempted to leave several times AMA during his hospitalization. Continued wet to dry dressing and wound care manag ement with Dr. Daigle who agrees to see patient in his clinic after discharge on Wednesday 08/15. The patient denies having help for dressing changes and was instructed to follow up at wound Care Clinic and if unable to do so to go to PCP, [facility], urgent care, or ED to have his dressings changed. 2. Acute kidney injury, with history of L nephrectomy, present on admission. Resolving. -Initial creatinine was 1.5. Baseline creatinine 1.1. Improved to 1.4. -Received IV fluids in ED. Continued to encourage PO fluids. -Likely secondary to abscess and infection. -Continued to monitor creatinine daily. 3. Liposarcoma, chronic, present on admission. Stable. -Continued home palbocicib 125 mg daily. 4. Diabetes and prediabetes ruled out. -Hemoglobin A1C was 5.6 % which is normal. Prediabetes 5.7-6.4%. -Continued lifestyle modifications. Exam Vital Signs (past 8 hours): - 10/25/19 08:40 09/11/19 08:45 09/11/19 15:00 Temperature 97.3 F L Pulse Rate 68 Respiratory Rate 18 Blood Pressure 114/88 Pulse Oximetry 97 97 94 Oxygen Delivery Method Room Air Oxygen Flow Rate 0 Narrative Exam Narrative: General: Older gentleman lying in bed and in no acute distress, well-developed, well-nourished, anxious but otherwise appropriately interactive HEENT: Normocephalic, atraumatic. External ears without defect. Pupils equal, round, and reactive to light. Anicteric sclerae, moist conjunctivae, and no lid lag. Neck: Supple with full range of motion. No lymphadenopathy or thyromegaly. Cardiovascular: Regular rate and rhythm without murmurs, rubs, or gallops appreciated Pulmonary: Clear to auscultation bilaterally without crackles, wheezes, or rhonchi. Normal respiratory effort with no use of accessory muscles. Abdomen: Soft, bowel sounds present,, nontender, nondistended. No hepatosplenomegaly or masses appreciated. Extremities: No clubbing, cyanosis, or edema. Back: Midline large vertical wound 4-5 inches long does not appear infected and healing well, repacked with wet to dry dressing. Neurological: Cranial nerves grossly intact. Psychiatric: Anxious mood and affect. Alert and oriented to person, place, and time. Objective Labs Result Diagrams: 09/11/19 05:50 09/11/19 05:50 Labs: Laboratory Results - last 24 hr 09/11/19 09/11/19 09/11/19 05:50 05:50 08:59 WBC 7.2 RBC 3.16 L Hgb 10.5 L Hct 30.8 L MCV 97.5 MCH 33.1 MCHC 34.0 RDW 20.8 H Plt Count 245 Neut % (Auto) 67.5 Lymph % (Auto) 24.2 L [place] % (Auto) 5.6 Eos % (Auto) 1.6 L Baso % (Auto) 1.1 Neut # (Auto) 4900 Lymph # (Auto) 1700 [place] # (Auto) 400 Eos # (Auto) 100 Baso # (Auto) 100 RBC Morphology Not Reportable Anisocytosis 1+ H Sodium 138 Potassium 4.1 Chloride 104 Carbon Dioxide 27 BUN 22 H Creatinine 1.40 H Estimated GFR 50.4 L BUN/Creatinine Ratio 15.7 Glucose 99 Calcium 8.3 L Magnesium 1.9 Vancomycin Trough 10.3 Discharge Plan Discharge Plan Patient Disposition: Home Health Service Discharge comment: You are being discharged home with home health to come out to your house once a week on Saturday or Saturday. Discharge Med Rec/Prescriptions Prescriptions: New amoxicillin-pot clavulanate [Augmentin] 875-125 mg tablet 1 tab PO BID Qty: 12 RF: 0 Continued Ibrance 125 mg Capsule 125 mg PO DAILY RF: 0 Follow up/Referrals: Abdias Daigle MD [Physician] - 09/14/19 3:00 pm (Saturday at 3 pm) Provider Discharge Instructions Diet: Diet as Tolerated, Low-fat, Low-sodium and Low-cholesterol Activity: Activity as tolerated Skin/Wound/Dressing Care Dressing: Dressing changes every other day. If you are unable to see Dr. Daigle on Saturday go to the urgent care or emergency department. Visit Report/Discharge Packet Instructions: DI for Incision and Drainage, [facility]: Wound Care, Amoxicillin/Clavulanate Potassium (By mouth) Discharges patient from system. Discharge Date/Time: 09/11/19 16:52 Quality VTE Deep Vein Thrombosis/Pulmonary Embolism Present on Admission: No
[2019-09-11] MEDS: VANCOMYCIN TROUGH 1 REQUEST MISC (11:04)
[2019-09-11 15:00] VITALS: O2SAT 94
--- NOTE | 2019-09-11 16:25 | CM.DPNOTE ---
DC Note: Pt being DC home today. Worked on DCP throughout the day, met w/pt to discuss DCP, he does not have anyone available to assist him w/wound dressing changes, pt agreeable to [facility] for assist with dressing changes. Dr Castellano recommends daily, pt may only be able to get every other day changes. Placed call to [facility] earlier this afternoon, gave referral and faxed packet and signed F2F. [facility] had accepted referral and they were to open Saturday or Saturday to assist w/ RN to complete needed wound care. They could see pt approx. 2-3 times a week. 0: learned two things; Dr Croft and Dr Daigle worked out a dressing change for pt Saturday afternoon 09.14.19 and then learned [facility] unable to see pt on [facility] for HH d/t him not meeting homebound status and needing too much wound care than [facility]'s team can accommodate. This decision made by childcare director w/ [facility] Pt gone from the hospital, he needed to order picker his dog and get home, he alerted staff to this throughout the day. P: DC home on po meds via pov. F/u at wound care clinic Saturday for wound care dressing changes. MEHDI Faith
--- NOTE | 2019-09-11 16:27 | PC.NURSE ---
Pt discharged to private vehicle with discharge paperwork and instructions. He is aware he needs to come back to Dr. Saleh's office on Saturday for a dressing change.
--- NOTE | 2019-09-11 16:32 | PC.NURSE ---
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 [place] the [place] 1700. He was threatening to go AMA. [facility] Home Health agency may be able to see the patient at his home on [address] on Saturday but patient was advised to come to on Saturday and see Dr. Saleh for a dressing change. He understands this. He also is aware he needs to fill his Amoxicillin Rx and take meds as follows.
== END 2019-09-11 16:52 | disposition home health service (06) | DRG 580 ==
LOC: ED 09:39 → AC 16:42
PROVIDERS: Surgery; Admitting Provider Internal Medicine; Emergency Provider Emergency Medicine; Visit Provider Internal Medicine
PROC: 0J970ZZ Drainage of Back Subcutaneous Tissue and Fascia, Open Approach (ICD-10-PCS; principal; 2019-09-09 17:35)
DX: L02.212 Cutaneous abscess of back [any part, except buttock and flank] (principal); N17.9 Acute kidney failure, unspecified; C48.8 Malignant neoplasm of overlapping sites of retroperitoneum and peritoneum; F84.0 Autistic disorder; Z90.5 Acquired absence of kidney
CPT/HCPCS: 36415; 74177; 80048; 80202; 81001; 83036; 83605; 83735; 84145; 85025; 85651; 86140; 87040; 87070; 87075; 87077; 87176; 87186; 87205; 94762; 99283; 99284; J1170; J1644; J2060; J2250; J2405; J2543; J2704; J3010; Q9967

== ENCOUNTER 2019-09-12 13:41 | Emergency (ER) | payer MEDICARE, OTHER, SELFPAY ==
[2019-09-09 17:22] VITALS: BMI 28.6
[2019-09-12 13:46] VITALS: BP 161/100; PULSE 70; RESP 18; TEMP 36.6; O2SAT 96
--- NOTE | 2019-09-12 13:59 | ED.SKABFB ---
HPI - Skin/Abscess/Foreign Bdy <FELICIA Nieves - Last Filed: 09/12/19 14:13> General Chief complaint: Skin/Abscess/Foreign Body Stated complaint: dressing change Time Seen by Provider: 09/12/19 13:47 Source: patient Mode of arrival: Ambulatory Limitations: no limitations History of Present Illness HPI narrative: 69-year-old male who was recently discharged from the hospital on 09/11/2019 after surgical I&D of a abscess over his lumbar spine, presents to the emergency department today stating that he went to the pharmacy today and noticed a piece a wet gauze fell off of his bandage. He was unable to visualize the wound or redressed it so he presented to the ED for wound dressing change. Patient denies any worsening symptoms such as increased pain, fevers, abdominal pain, nausea, vomiting, diarrhea, chest pain, leg weakness, change in gait, or other concerns. Per previous notes, it appears patient has had a wet to dry dressing applied to wound. He is scheduled to follow up with wound care on Saturday. Patient states he is currently taking his antibiotics as directed. Additionally, patient states he restarted chemo today. Related Data Home Medications Medication Instructions Recorded Confirmed Ibrance 125 mg PO DAILY 09/09/19 09/09/19 Previous Rx's Medication Instructions Recorded amoxicillin-pot clavulanate 1 tab PO BID #12 tab 09/11/19 [Augmentin] Allergies Allergy/AdvReac Type Severity Reaction Status Date / Time No Known Drug Allergies Allergy Verified 09/09/19 09:25 Review of Systems <FELICIA Nieves - Last Filed: 09/12/19 14:13> Review of Systems Narrative: REVIEW OF SYSTEMS: GENERAL: Denies fever or chills. HENT: Denies head trauma. EYE: Denies double vision or vision loss. CARDIOVASCULAR: Denies syncope. MUSCULOSKELETAL: Denies weakness, or deformities. INTEGUMENTARY: Complains of wound to lumbar spine, see HPI. NEURO: Denies numbness or tingling. Patient History <FELICIA Nieves - Last Filed: 09/12/19 14:13> Medical History (Updated 09/12/19 @ 14:11 by FELICIA Nieves) Sarcoma of retroperitoneum (Acute) Spinal cord injury (Acute) Surgical History (Updated 09/09/19 @ 17:37 by Ramon Castellano MD) H/O splenectomy (Acute) Hx of partial adrenalectomy (Acute) Social History household members: other Smoking Status: Former smoker alcohol intake: never alcohol intake frequency: 0-2 drinks per day Substance Use Type: marijuana Exam <FELICIA Nieves - Last Filed: 09/12/19 14:13> Narrative Exam Narrative: PHYSICAL EXAMINATION: GENERAL: Well groomed, alert, and cooperative. Answers questions promptly and appropriately. Vital signs noted. HENT: Normocephalic, atraumatic. RESPIRATORY: Normal respiratory rate, trachea midline, airway patent. No stridor, nasal flaring or accessory muscle use. MUSCULOSKELETAL: Normal gait and coordination. Equal tone and mass bilaterally. EXTREMITIES: CMS intact. Moves all extremities. SKIN: Warm, dry, soft, appropriate color for ethnicity. 4cm x 2cm open surgical incision noted above lumbar spine, wound bed pink without exudate or eschar. Internal wet dressing remained intact, slight amount of yellow and serosanguineous discharge noted to gauze. No bleeding. No surrounding erythema. NEURO: Alert and Oriented X 3. Good coordination. PSYCH: Appropriate affect and mood. Initial Vital Signs Initial Vital Signs: Vital Signs Temperature 97.8 F 09/12/19 13:46 Pulse Rate 70 09/12/19 13:46 Respiratory Rate 18 09/12/19 13:46 Blood Pressure 161/100 H 09/12/19 13:46 Pulse Oximetry 96 09/12/19 13:46 <Lakisha Little DO - Last Filed: 09/12/19 16:16> Initial Vital Signs Initial Vital Signs: Vital Signs Temperature 97.8 F 09/12/19 13:46 Pulse Rate 70 09/12/19 13:46 Respiratory Rate 18 09/12/19 13:46 Blood Pressure 161/100 H 09/12/19 13:46 Pulse Oximetry 96 09/12/19 13:46 Course <FELICIA Nieves - Last Filed: 09/12/19 14:13> Course Course Narrative: Wet to dry dressing was replaced by nursing, wound was packed with wet sterile gauze and covered with ABD pad and dry gauze. Patient tolerated well. Vital Signs Vital signs: Vital Signs - 8 hr 09/12/19 13:46 Temperature 97.8 F Pulse Rate 70 Respiratory Rate 18 Blood Pressure 161/100 H Pulse Oximetry 96 <Lakisha Little DO - Last Filed: 09/12/19 16:16> Vital Signs Vital signs: Vital Signs - 8 hr 09/12/19 13:46 Temperature 97.8 F Pulse Rate 70 Respiratory Rate 18 Blood Pressure 161/100 H Pulse Oximetry 96 MDM - Skin/Abscess/Foreign Bdy <FELICIA Nieves - Last Filed: 09/12/19 14:13> Medical Records Attestation: I reviewed the patient's medical records. Lab Data Attestation: I reviewed the patient's lab results. [facility] Narrative Medical decision making narrative: Encounter for Simple surgical wet to dry wound dressing change without signs of infection. Less concern for increased infection risk as patient had a follow-up on Saturday and has taken his antibiotics today. Strict return precautions given for worsening symptoms. Discharge Plan Departure Patient Disposition: Home Clinical Impression: Change or removal of surgical wound dressing Discharge Date/Time: 09/12/19 14:24 Instructions: How to Change a Wet-to-dry Wound Dressing Activity Restrictions/Additional Instructions: Thank you for entrusting me with your care today. As discussed, your dressing was changed today. Please follow up with wound care as planned on Saturday. Continue to take her antibiotics as directed. Return emergency department if you develop high fevers, uncontrollable vomiting, chest pain, dizziness, syncope, or other concerns. Prescriptions: No Action Ibrance 125 mg Capsule 125 mg PO DAILY RF: 0 amoxicillin-pot clavulanate [Augmentin] 875-125 mg tablet 1 tab PO BID Qty: 12 RF: 0
--- NOTE | 2019-09-12 14:14 | PC.NURSE ---
has wound to spine/ abcess drained/ still has gauze in for drainage/ wet 4x4 placed and used adhesive dressing to back, pt satisfied with all dressings and how it is being done. states will return saturday for dressing change as instruted by previous visit
== END 2019-09-12 14:24 | disposition home or self-care (01) ==
PROVIDERS: Emergency Provider Nurse Practitioner
DX: Z48.00 Encounter for change or removal of nonsurgical wound dressing (principal)
CPT/HCPCS: 99282

== ENCOUNTER → 2019-09-14 15:30 | Outpatient (CLI) | payer MEDICARE, OTHER, SELFPAY ==
[2019-09-09 17:22] VITALS: BMI 28.6
== END ==
PROVIDERS: Visit Provider Family Medicine
DX: S31.000A Unspecified open wound of lower back and pelvis without penetration into retroperitoneum, initial encounter (principal); C49.6 Malignant neoplasm of connective and soft tissue of trunk, unspecified; Z79.899 Other long term (current) drug therapy
CPT/HCPCS: 11042; 99203; 99214

== ENCOUNTER → 2019-09-17 09:01 | Outpatient (CLI) | payer MEDICARE, OTHER, SELFPAY ==
[2019-09-09 17:22] VITALS: BMI 28.6
== END ==
PROVIDERS: Visit Provider Family Medicine
DX: S31.000D Unspecified open wound of lower back and pelvis without penetration into retroperitoneum, subsequent encounter (principal)
CPT/HCPCS: 99213

== ENCOUNTER → 2019-09-21 10:47 | Outpatient (CLI) | payer MEDICARE, OTHER, SELFPAY ==
[2019-09-09 17:22] VITALS: BMI 28.6
== END ==
PROVIDERS: Visit Provider Family Medicine
DX: S31.000A Unspecified open wound of lower back and pelvis without penetration into retroperitoneum, initial encounter (principal); L02.212 Cutaneous abscess of back [any part, except buttock and flank]; C49.6 Malignant neoplasm of connective and soft tissue of trunk, unspecified; Z79.899 Other long term (current) drug therapy
CPT/HCPCS: 11042; 99212

== ENCOUNTER → 2019-09-24 15:03 | Outpatient (CLI) | payer MEDICARE, OTHER, SELFPAY ==
[2019-09-09 17:22] VITALS: BMI 28.6
== END ==
PROVIDERS: Visit Provider Family Medicine
DX: S31.000D Unspecified open wound of lower back and pelvis without penetration into retroperitoneum, subsequent encounter (principal)
CPT/HCPCS: 99213

== ENCOUNTER 2020-01-25 14:59 | Emergency (ER) | payer OTHER, SELFPAY ==
[2019-09-09 17:22] VITALS: BMI 28.6
[2020-01-25 15:06] VITALS: BP 127/62; BP 95/68; PULSE 82; PULSE 90; RESP 13; RESP 24; TEMP 36.4; O2SAT 96; O2SAT 99
--- NOTE | 2020-01-25 15:11 | ED_ITS ---
HPI - Abdominal Pain General Chief Complaint: Abdominal Pain Stated Complaint: CONSTIPATION CANCER PATIENT Time Seen by Provider: 01/25/20 15:11 History of Present Illness HPI narrative: 69-year-old gentleman status post resection of a retroperitoneal liposarcoma, left nephrectomy, adrenalectomy, splenectomy and partial colectomy with residual mass and BPH. He also has autism spectrum disorder and he presents to the emergency department complaining of more than a month of being completely impacted with stool. He can't remember the last time he actually had a bowel movement. He states that he has been spending upwards of 75 dollars a trip buying suppositories and enemas at [employer] and has had no success. Medical records from his oncologist, Dr. Dangelo, are reviewed. 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 CT scan in October 2019 at [facility] indicates an increase in size of the left retroperitoneal dominant mass compared to August of 2019 with nodular thickening along adjacent left lateral abdominal wall. December 10, 2019 he started gemcitabine/docetaxel chemo. CT scan December 10, 2019 left mid abdominal soft tissue mass enlarging compared to August, mild heterogeneous internal contents including small central cystic spaces marked prostatic hypertrophy Related Data Home Medications Medication Instructions Recorded Confirmed apixaban [Eliquis] 5 mg PO BID 01/25/20 01/25/20 ondansetron HCl 8 mg PO TID PRN 01/25/20 01/25/20 Allergies Allergy/AdvReac Type Severity Reaction Status Date / Time No Known Drug Allergies Allergy Verified 09/09/19 09:25 Review of Systems Review of Systems Narrative: Chills, not complaining of abdominal pain, states no flatus since he can remember, no bowel movements since he can remember, decreased oral intake, generalized abdominal pain No chest pain, dyspnea, orthopnea, edema Unsure if he has lost any weight recently Patient History Medical History (Updated 09/27/19 @ 00:00 by ) Sarcoma of retroperitoneum (Acute) Spinal cord injury (Acute) Surgical History (Updated 01/25/20 @ 16:08 by Liz Cason MD) H/O splenectomy (Acute) History of nephrectomy (Acute) Hx of partial adrenalectomy (Acute) Social History household members: other Smoking Status: Former smoker alcohol intake: never Smoking Status: Former smoker alcohol intake frequency: 0-2 drinks per day Substance Use Type: marijuana Exam Narrative Exam Narrative: General: Quite pale, appears to be in mild distress Able to give a complete and coherent history. Well-nourished well-developed HEENT: Moist mucous membranes, normal sclera with reactive pupils, Neck: No JVD, supple Respiratory: Lungs are clear to auscultation, no wheezing no rales no rhonchi. Full and symmetrical air movement Cardiac: Regular rate and rhythm no murmurs no bruits Abdomen: Soft nontender multiple well-healed surgical scars, good bowel tones, no flank pain Skin: Warm and dry, no rashes Neurologic: Grossly neurologically intact with no obvious asymmetries or abnormalities Extremities: No trauma, well perfused Psych: Cooperative, poor insight and concern for fixed delusions regarding his medical management in symptoms Rectal exam: Bloody discharge around the anus I am unable to insert my finger fully through the anal sphincter due to severe pain. I do not feel immediate stool at the anal verge Initial Vital Signs Initial Vital Signs: Vital Signs Temperature 97.5 F L 01/25/20 15:06 Pulse Rate 82 01/25/20 15:06 Respiratory Rate 24 01/25/20 15:06 Blood Pressure 95/68 01/25/20 15:06 Pulse Oximetry 96 01/25/20 15:06 Course Orders Ordered: ED Orders 01/25/20 15:32 XR abdomen 1V Stat Vital Signs Vital signs: Vital Signs - 8 hr 01/25/20 15:06 Temperature 97.5 F L Pulse Rate 90 Respiratory Rate 13 Blood Pressure 127/62 Pulse Oximetry 99 MDM - Abdominal Pain Medical Records Attestation: I reviewed the patient's medical records. Imaging Data Abdominal x-ray: Radiologist's Impression: IMPRESSION: Moderate stool without obstruction. Overall appearance is consistent with constipation. Dictated by: Verenice Her M.D. on 01/25/2020 at 17:45 MDM Narrative Medical decision making narrative: 69-year-old gentleman with retroperitoneal sarcoma significant constipation not obstructed. Presents asking for help with disimpaction. Unable to tolerate any amount of finger in his rectum to help physically do this. Will need sedation. Immediate acuity in the emergency department at this time precludes sedating him for likely 2-3 hours until appropriate staff is available. He is not available to wait that long. He is going to go care for his dog go home to [facility] and come back in the morning. Offered magnesium citrate and he continues to reiterate that he has ?tried everything? and nothing is working. He is understandably frustrated that resources are not immediately available to fix his issue. After discussion, he did leave the department prior to printed discharge instructions being given. Do anticipate that he will return in the morning and hopefully we will be better equipped to deal with his issues at that time Discharge Plan Departure Prescriptions: No Action ondansetron HCl 8 mg tablet 8 mg PO TID PRN (Reason: Nausea) RF: 0 Eliquis 5 mg tablet 5 mg PO BID RF: 0
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
--- NOTE | 2020-01-25 15:32 | DI.RAD.S_ITS ---
PROCEDURE: XR ABDOMEN 1V INDICATIONS: ? SBO/stool impaction TECHNIQUE: One view of the abdomen acquired. COMPARISON: None. FINDINGS: Surgical changes and devices: None. Bowel: Bowel gas pattern is normal. Moderate stool. Soft tissues: No suspicious abdominal calcifications. Visualized solid organ contours appear normal in size. Bones: No suspicious bony lesions. IMPRESSION: Moderate stool without obstruction. Overall appearance is consistent with constipation. Dictated by: Verenice Her M.D. on 01/25/2020 at 17:45 Approved by: Verenice Her M.D. on 01/25/2020 at 17:45
== END 2020-01-25 18:22 | disposition home or self-care (01) ==
PROVIDERS: Emergency Provider Emergency Medicine
DX: K59.00 Constipation, unspecified (principal); C48.0 Malignant neoplasm of retroperitoneum
CPT/HCPCS: 74018; 99283

== ENCOUNTER 2020-01-29 08:58 | Emergency (ER) | payer OTHER, SELFPAY ==
[2019-09-09 17:22] VITALS: BMI 28.6
[2020-01-29 09:05] VITALS: BP 122/69; PULSE 101; RESP 22; TEMP 36.4; O2SAT 99
[2020-01-29 09:23] LABS: Bacteria Urine None Seen; RBC Urine None Seen (0-5/HPF); WBC Urine None Seen (0-5/HPF)
[2020-01-29 09:25] LABS: Appearance Urine UA CLEAR; Bilirubin Urine UA NEGATIVE (NEGATIVE); Color Urine UA YELLOW; Glucose Urine UA NEGATIVE (Negative); Ketones Urine UA NEGATIVE (NEGATIVE); Leukocyte Esterase Urine UA NEGATIVE (NEGATIVE); Nitrite Urine UA NEGATIVE (Negative); Occult Blood Urine UA TRACE-INTACT (Negative); Protein Urine UA NEGATIVE (Negative); Urobilinogen Urine UA 0.2 E.U./dL (0.2)
[2020-01-29 09:28] LABS: Culture Indicated Urine Cult Not Indicated; Urine Comments Microscopic Normal
[2020-01-29] MEDS: LIDOCAINE 2% (UROJET) 5 ML GEL (09:31)
[2020-01-29] MEDS: SODIUM CHLORIDE 0.9% 1,000 ML 1000 ML IV (09:37)
[2020-01-29 09:39] LABS: Mean Corpuscular HGB Conc 33.2 % (30-36); Mean Corpuscular Volume 96.4 fL (80-100); Platelet Count 385 X10^3/uL (150-400); Red Blood Cell Count 2.74 X10^6/uL (4.5-5.9); Red Cell Distribution Width 19.8 % (11.6-14.8); White Blood Cell Count 11.5 X10^3/uL (4.5-11.0)
[2020-01-29 09:40] LABS: Hematocrit 26.4 % (41-53); Hemoglobin 8.8 g/dL (13.5-17.5)
[2020-01-29 09:41] LABS: Add Manual Diff / Slide Review YES
[2020-01-29 09:46] LABS: INR 1.2 (0.9-1.3); Prothrombin Time 14.1 SECONDS (10.1-12.7)
[2020-01-29 09:49] LABS: PTT Partial Thromboplastin Tim 30 SECONDS (26.4-36.2)
[2020-01-29 09:51] LABS: Alanine Aminotransferase 100 IU/L (<50); Albumin 3.4 g/dL (3.5-5.0); Alkaline Phosphatase 139 U/L (38-126); Aspartate Aminotransferase 53 IU/L (17-59); BUN Creatinine Ratio 25.4 (6-22); Bilirubin Total 0.5 mg/dL (0.2-1.3); Blood Urea Nitrogen 29 mg/dL (9-20); Calcium 8.8 mg/dL (8.4-10.2); Carbon Dioxide 23 mmol/L (22-32); Chloride 105 mmol/L (98-107); Estimated Glomerular Filt Rate > 60.0 mL/min (>60); Globulin 3.5 g/dL (1.7-4.1); Glucose 110 mg/dL (80-110); HEMOLYSIS < 15 (0-50); Potassium 4.8 mmol/L (3.4-5.1); Sodium 137 mmol/L (137-145); Total Protein 6.9 g/dL (6.3-8.2)
--- NOTE | 2020-01-29 09:53 | DI.RAD.S_ITS ---
PROCEDURE: XR ACUTE ABDOMEN SERIES INDICATIONS: abdominal pain, sarcoma of kidney, constipation TECHNIQUE: One view chest and two views of the abdomen were acquired. COMPARISON: [facility], CR, XR ABDOMEN 1V, 01/25/2020, 16:12. [facility], CT, CT CHEST ABDOMEN PELVIS WITH CONTRAST, 12/10/2019, 16:15. FINDINGS: Surgical changes and devices: Right Port-A-Cath. Multiple clips noted overlying the abdomen and pelvis. Rounded opacity overlying the right lower quadrant corresponding to prosthesis identified on CT exam. Chest: Lungs are clear. Heart size is normal. No pleural effusions. No pneumoperitoneum. Abdomen: Mild to moderate stool is present. Scattered mildly prominent loops of both colon and small bowel are noted. There are prominent loops No suspicious calcifications. Visualized solid organ contours appear normal. Bones: No suspicious bony lesions. IMPRESSION: Stool is present suggestive of constipation with mildly prominent loops of bowel as above. Ileus versus developing partial obstruction cannot be excluded. Dictated by: Verenice Her M.D. on 01/29/2020 at 10:33 Approved by: Verenice Her M.D. on 01/29/2020 at 10:36
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
[2020-01-29 10:06] LABS: Neutrophils Absolute Manual 9085 /uL (3000-5900); Total Cells Counted 100
[2020-01-29 10:07] LABS: Anisocytosis 2+; Polychromasia 1+
[2020-01-29 10:16] LABS: Lipase 28 U/L (23-300)
[2020-01-29 11:45] VITALS: BP 132/71; PULSE 98; RESP 18; O2SAT 100
[2020-01-29] MEDS: ONDANSETRON 4 MG ODT PO (12:11)
--- NOTE | 2020-01-29 17:56 | PC.NURSE ---
pt called department asking what the bag is that has clear fluid in it explained in great length the catheter, which was also explained to patient multiple times by md, primary nurse, and bellows charger assembler. pt verbalized understanding each time. pt dc'd while pt sitting in the waiting area pt began asking similar questions, again explained. pt calls demanding answers, states i will force you to tell me pt begin to escalate. instructed staff to forward all calls to ifeoma doan for furthur action.
== END 2020-01-29 12:17 | disposition home or self-care (01) ==
PROVIDERS: Emergency Provider Emergency Medicine
DX: N13.9 Obstructive and reflux uropathy, unspecified (principal); K59.00 Constipation, unspecified; R10.30 Lower abdominal pain, unspecified
CPT/HCPCS: 36415; 51701; 51798; 74022; 80053; 81001; 83690; 85025; 85610; 85730; 96360; 96361; 99284; 99285

== ENCOUNTER 2020-02-20 06:19 | Emergency (ER) | payer OTHER, SELFPAY ==
[2019-09-09 17:22] VITALS: BMI 28.6
[2020-02-20 06:30] VITALS: BP 136/88; PULSE 103; RESP 18; TEMP 36.4; O2SAT 99
--- NOTE | 2020-02-20 06:42 | ED.MALEGU ---
HPI - Male Genitourinary General Chief complaint: Urogenital-Male Stated complaint: Penile Pain Time Seen by Provider: 02/20/20 06:20 Source: patient and EMS Mode of arrival: EMS Limitations: no limitations History of Present Illness HPI Narrative: 69M former smoker with history of sarcoma and urinary retention presents with severe penis pain. He presents by EMS for evaluation of penis pain and inability to urine for what sounds like a day or 2. He denies runny nose, sore throat or chest pain. He denies any shortness of breath. He denies any dizziness, weakness or lightheadedness. MD Complaint: other Onset (ago): day(s) Duration: constant Location: penis and abdomen Radiation: penis Severity: moderate Quality: aching Relieving factors: none Exacerbating factors: movement Associated symptoms: Reports denies other symptoms Related Data Sexually active: No Home Medications Medication Instructions Recorded Confirmed apixaban [Eliquis] 5 mg PO BID 01/25/20 01/29/20 ondansetron HCl 8 mg PO TID PRN 01/25/20 01/29/20 Previous Rx's Medication Instructions Recorded sulfamethoxazole-trimethoprim 1 tab PO BID #14 tab 01/29/20 [Bactrim DS] Allergies Allergy/AdvReac Type Severity Reaction Status Date / Time No Known Drug Allergies Allergy Verified 01/29/20 09:05 Review of Systems Constitutional Constitutional: Denies chills, Denies fatigue, Denies fever(s), Denies frequent falls, Denies lethargy and Denies weakness Eyes Eyes: Denies change in vision, Denies eye discharge, Denies irritation and Denies loss of vision ENT Ears, Nose, Mouth, and Throat: Denies change in voice, Denies dizziness, Denies neck pain, Denies sore throat and Denies throat swelling Cardiovascular Cardiovascular: Denies chest pain, Denies irregular heart rhythm, Denies lightheadedness, Denies palpitations, Denies dyspnea, Denies dyspnea on exertion and Denies orthopnea Respiratory Respiratory: Denies cough, Denies dyspnea, Denies dyspnea on exertion and Denies wheezing Gastrointestinal Gastrointestinal: Denies abdominal pain, Denies change in bowel habits, Denies diarrhea, Denies nausea and Denies vomiting Genitourinary Genitourinary: Denies hematuria, Reports difficulty urinating, Denies flank pain, Denies urinary incontinence and Denies urinary urgency Musculoskeletal Musculoskeletal: Denies back pain, Denies muscle weakness, Denies neck pain, Denies numbness and Denies tingling Integumentary/Breasts Skin/Breast: Denies pruritus, Denies erythema, Denies rash and Denies wounds Neurologic Neurologic: Denies behavioral changes, Denies confusion, Denies dizziness, Denies frequent falls, Denies loss of vision, Denies numbness, Denies tingling and Denies weakness Psychiatric Psychiatric: Denies anxiety, Denies behavioral changes, Denies confusion, Denies depression, Denies homicidal ideation and Denies suicidal ideation Endocrine Endocrine: Denies fatigue, Denies flushing and Denies palpitations Hematologic/Lymphatic Hematologic/Lymphatic: Denies easy bruising Allergic/Immunologic Allergic/Immunologic: Denies urticaria, Denies throat swelling and Denies wheezing Patient History Medical History Sarcoma of retroperitoneum (Acute) Spinal cord injury (Acute) Surgical History H/O splenectomy (Acute) History of nephrectomy (Acute) Hx of partial adrenalectomy (Acute) Social History household members: other Smoking Status: Former smoker alcohol intake: never Smoking Status: Former smoker alcohol intake frequency: 0-2 drinks per day Substance Use Type: marijuana Exam Narrative Exam Narrative: GEN: AOx3 and in mild distress EYES: Pupils are equal, round, and reactive to light and accommodation. Extraoccular muscles are intact bilaterally. There is no subconjunctival hemorrhage or exudate. CHEST: Lungs are clear to auscultation bilaterally and free of wheezes, rales, or rhonchi. Heart rate is regular rhythm, there are no murmurs, clicks, rubs, or gallops. There is no chest wall tenderness. ABD: Abdomen soft and tender to palpation in the suprapubic region. Bladder scan notes >999mL EXT: Full painless ROM of all extremities with no loss of sensation or strength. SKIN: Warm, pink, and dry. No erythema or rash Initial Vital Signs Initial Vital Signs: Vital Signs Temperature 97.6 F 02/20/20 06:30 Pulse Rate 103 H 02/20/20 06:30 Respiratory Rate 18 02/20/20 06:30 Blood Pressure 136/88 02/20/20 06:30 Pulse Oximetry 99 02/20/20 06:30 Course Course Course Narrative: del cid placed and >1000mL noted in bag, patient develops immediate and complete resolution of symptoms. He did have a slight drop in BP and was then signed out to Dr. Montiel for a bit of observation and final disposition Vital Signs Vital signs: Vital Signs - 8 hr 02/20/20 06:30 Temperature 97.6 F Pulse Rate 103 H Respiratory Rate 18 Blood Pressure 136/88 Pulse Oximetry 99 Discharge Plan Departure Patient Disposition: Home Clinical Impression: Acute urinary retention Discharge Date/Time: 02/20/20 09:01 Instructions: DI for Urinary Retention in Men Activity Restrictions/Additional Instructions: *You have been diagnosed with [ acute urinary retention ] *What to do: *Take medications as directed *Follow up with your primary care provider in 2-3 days, call for an appointment. Let them know you were seen in the Emergency Department and that we ask that you be seen in follow up *Return to ER if you should have any new, worsening or concerning symptoms Prescriptions: No Action ondansetron HCl 8 mg tablet 8 mg PO TID PRN (Reason: Nausea) RF: 0 Eliquis 5 mg tablet 5 mg PO BID RF: 0 sulfamethoxazole-trimethoprim [Bactrim DS] 800-160 mg tablet 1 tab PO BID Qty: 14 RF: 0
--- NOTE | 2020-02-20 06:42 | PC.NURSE ---
reports no urine output for three days.
--- NOTE | 2020-02-20 07:40 | PC.NURSE ---
patient output 700 ml and del cid clamped for 10 min. an additional 700ml drained and clamped. blood pressures reduced to 80s over 50s. Provider notified. del cid left clamped and po fluids pushed.
[2020-02-20 08:59] VITALS: BP 103/50; PULSE 80; RESP 13; O2SAT 100
--- NOTE | 2020-02-20 09:01 | PC.NURSE ---
pt left per cab to [facility] family at home
--- NOTE | 2020-02-20 12:23 | PC.NURSE ---
pt called and apparently room mate cut del cid catheter. multiple questions about catheter. told to please come so we can check pt out.
== END 2020-02-20 09:01 | disposition home or self-care (01) ==
PROVIDERS: Emergency Provider Emergency Medicine
DX: R33.8 Other retention of urine (principal); N48.89 Other specified disorders of penis
CPT/HCPCS: 51798; 99284

== ENCOUNTER 2020-02-20 13:31 | Emergency (ER) | payer OTHER, SELFPAY ==
[2019-09-09 17:22] VITALS: BMI 28.6
[2020-02-20 13:42] VITALS: BP 107/59; PULSE 99; RESP 16; TEMP 36.4; O2SAT 100
--- NOTE | 2020-02-20 13:57 | ED_ITS ---
HPI - Male Genitourinary <CHANCE Gonsalez-BC - Last Filed: 02/20/20 15:55> General Chief complaint: Urogenital-Male Stated complaint: catheter Time Seen by Provider: 02/20/20 13:35 Source: patient Mode of arrival: Ambulatory Limitations: no limitations History of Present Illness HPI Narrative: The patient is a 69-year-old male former smoker history presents with a chief complaint of a urinary catheter issue. Chart review illustrate the patient had an emergency department visit this facility this morning, was found to be retaining over L of urine and had a urine catheter placed to facilitate drainage. When the patient got home, he states that his ?special needs roommate cut his Anaya catheter tubing. He and his roommate stated that he does not need the Anaya catheter anymore. He called nursing in the emergency department who directed him to come back to the emergency department for evaluation. Upon interview, the patient states that he does not need a Anaya catheter. He states that he acknowledges that he did not urinate for several days, but states that that was by choice. Related Data Home Medications Medication Instructions Recorded Confirmed apixaban [Eliquis] 5 mg PO BID 01/25/20 01/29/20 ondansetron HCl 8 mg PO TID PRN 01/25/20 01/29/20 Previous Rx's Medication Instructions Recorded sulfamethoxazole-trimethoprim 1 tab PO BID #14 tab 01/29/20 [Bactrim DS] Allergies Allergy/AdvReac Type Severity Reaction Status Date / Time No Known Drug Allergies Allergy Verified 01/29/20 09:05 Review of Systems <CLARISSA Gonsalez - Last Filed: 02/20/20 15:55> Review of Systems Narrative: GENERAL: Denies chills, fatigue, malaise, fever, sweats. HEENT: Denies sinus pain, ear pain, sore throat, difficulty swallowing, dizziness. RESPIRATORY: Denies dyspnea, cough, wheezing, hemoptysis, sputum. CARDIOVASCULAR: Denies chest pain, palpitations, orthopnea, edema, GASTROINTESTINAL: Denies nausea, vomiting, abdominal pain, diarrhea, constipation, melena. : She HPI MUSCULOSKELETAL: denies weakness, joint pain, or bony pain SKIN: Denies rash, skin lesions, or other NEUROLOGIC: Denies weakness, headache, numbness, change in speech, confusion, seizures, incoordination. PSYCHIATRIC: No concerning psychosocial issues. 12 point review of systems is negative except for those stated above Patient History <CLARISSA Gonsalez - Last Filed: 02/20/20 15:55> Medical History Sarcoma of retroperitoneum (Acute) Spinal cord injury (Acute) Surgical History H/O splenectomy (Acute) History of nephrectomy (Acute) Hx of partial adrenalectomy (Acute) Social History household members: other Smoking Status: Former smoker alcohol intake: never Smoking Status: Former smoker alcohol intake frequency: 0-2 drinks per day Substance Use Type: marijuana Exam <CLARISSA Gonsalez - Last Filed: 02/20/20 15:55> Narrative Exam Narrative: GENERAL: Elderly chronically ill-appearing male lying on stretcher HEAD: Atraumatic. Normocephalic. No temporal or scalp tenderness. EYES: Pupils equal round and reactive. Extraocular motions intact. No scleral icterus. No injection or drainage. ENT: Nose without bleeding, purulent drainage or septal hematoma. Throat without erythema, tonsillar hypertrophy or exudate. Uvula midline. Airway patent. NECK: Trachea midline. No JVD or lymphadenopathy. Supple, nontender, no meningeal signs. CARDIOVASCULAR: Regular rate and rhythm RESPIRATORY: Clear to auscultation. Breath sounds equal bilaterally. No wheezes, rales, or rhonchi. GASTROINTESTINAL: Abdomen soft, non-tender, nondistended. No hepato- splenomegaly, or palpable masses. No guarding. Anaya catheter in place draining clear yellow urine. EXTREMITIES: No clubbing, cyanosis, or edema. No joint tenderness, effusion, or edema noted. BACK: Nontender without deformity or crepitance. No flank tenderness. NEURO: AOx3. SKIN: No rash or erythema. Patient appears pale Initial Vital Signs Initial Vital Signs: Vital Signs Temperature 97.5 F L 02/20/20 13:42 Pulse Rate 99 H 02/20/20 13:42 Respiratory Rate 16 02/20/20 13:42 Blood Pressure 107/59 L 02/20/20 13:42 Pulse Oximetry 100 02/20/20 13:42 <Lul Montiel DO - Last Filed: 02/20/20 16:07> Initial Vital Signs Initial Vital Signs: Vital Signs Temperature 97.5 F L 02/20/20 13:42 Pulse Rate 99 H 02/20/20 13:42 Respiratory Rate 16 02/20/20 13:42 Blood Pressure 107/59 L 02/20/20 13:42 Pulse Oximetry 100 02/20/20 13:42 Scores <CLARISSA Gonsalez - Last Filed: 02/20/20 15:55> GCS Luis coma scale eye opening: Spontaneous Luis coma scale verbal response: Orientated [place] coma scale motor response: Obey commands Luis coma scale total score: 15 Course <CLARISSA Gonsalez - Last Filed: 02/20/20 15:55> Orders Ordered: ED Orders 02/20/20 14:07 Urine Culture Stat Urine Microscopic Stat Vital Signs Vital signs: Vital Signs - 8 hr 02/20/20 13:42 Temperature 97.5 F L Pulse Rate 99 H Respiratory Rate 16 Blood Pressure 107/59 L Pulse Oximetry 100 <Lul Montiel DO - Last Filed: 02/20/20 16:07> Orders Ordered: ED Orders 02/20/20 14:07 Urine Culture Stat Urine Microscopic Stat Vital Signs Vital signs: Vital Signs - 8 hr 02/20/20 13:42 Temperature 97.5 F L Pulse Rate 99 H Respiratory Rate 16 Blood Pressure 107/59 L Pulse Oximetry 100 MDM - Male Genitourinary <CLARISSA Gonsalez - Last Filed: 02/20/20 15:55> Lab Data Labs: Lab Results 02/20/20 Range/Units 14:07 Urine RBC 10-30/hpf H (0-5/HPF) Urine WBC 10-30/hpf H (0-5/HPF) Ur Squamous Epith Cells 0-1 /hpf (0-5/HPF) Uric Acid Crystals Many H (None) Other Crystals 2+ amorphous Amorphous Sediment 2+ Urine Bacteria Few (2-10) H (None) Ur Culture Indicated? Specimen cultured Urine Dip Bedside Urine Glucose Negative Bedside Urine Bilirubin - Negative Bedside Urine Ketone - Negative Urine Specific [place] 1.020 Bedside Urine Occult Blood +++ Bedside Urine pH 6.0 Bedside Urine Protein + 30 Bedside Urine Urobilinogen - Negative Bedside Urine Nitrite - Negative Bedside Urine Leukocytes ++ 125 Esterase MDM Narrative Medical decision making narrative: The patient is a 69-year-old male who presents with a chief complaint of a Anaya catheter issue. He had cut the catheter tubing, which was replaced by nursing upon the patient's arrival. Anaya catheter appears to be working well and balloon was checked. Given that we cannot find urinalysis results from this morning, a urinalysis was checked. I spent a deal of time speaking with the patient regarding the nature of Anaya catheter, but it was concerning that he did not urinate for several days, that he might have had a bladder stretch injury and encouraged him to keep the catheter in for few days with follow-up. The patient is argumentative, interrupting, repeatedly stating that he did not need the Anaya catheter. However the patient later agreed to keep the Anaya catheter in for a few days pending a follow-up. I discussed at length monitoring for signs and symptoms of infection, discussed not cutting his Anaya catheter tubing. The patient then decided that he wanted his Anaya catheter removed despite the risk of urinary retention and potential injury. Anaya catheter was removed by nursing. The patient's urine is concerning for infection with bacteria, wbc's, RBC. However the patient declines antibiotics at this point time, states that he believes that the infection is ?from the 24-year-old who put it in with no gloves on.I discussed that a urine culture will be done and we will call him if we need to place him on anything. The patient has no questions or concerns upon discharge and states understanding return precautions as well as follow-up care. <Lul Montiel, DO - Last Filed: 02/20/20 16:07> Lab Data Labs: Lab Results 02/20/20 Range/Units 14:07 Urine RBC 10-30/hpf H (0-5/HPF) Urine WBC 10-30/hpf H (0-5/HPF) Ur Squamous Epith Cells 0-1 /hpf (0-5/HPF) Uric Acid Crystals Many H (None) Other Crystals 2+ amorphous Amorphous Sediment 2+ Urine Bacteria Few (2-10) H (None) Ur Culture Indicated? Specimen cultured Urine Dip Bedside Urine Glucose Negative Bedside Urine Bilirubin - Negative Bedside Urine Ketone - Negative Urine Specific [place] 1.020 Bedside Urine Occult Blood +++ Bedside Urine pH 6.0 Bedside Urine Protein + 30 Bedside Urine Urobilinogen - Negative Bedside Urine Nitrite - Negative Bedside Urine Leukocytes ++ 125 Esterase Discharge Plan Departure Patient Disposition: Home Clinical Impression: Encounter for Anaya catheter removal Problem with Anaya catheter Qualifiers: Encounter type: initial encounter Qualified Code(s): T83.9XXA - Unspecified complication of genitourinary prosthetic device, implant and graft, initial encounter Discharge Date/Time: 02/20/20 14:52 Instructions: DI for Urinary Retention in Men Activity Restrictions/Additional Instructions: As discussed, you have elected to have your Anaya catheter removed despite our belief that you should keep it in. Please come back to the emergency department for any acute concerns such as inability to urinate. There is significant risk if the Anaya was removed too early, including a bladder injury, potential kidney injury from urine back up, etcetera. As discussed your urine has signs of infection. There is a culture pending. We will call you in 2-3 days if antibiotics are necessary. In the meantime please monitor for fever and flank pain. Prescriptions: No Action ondansetron HCl 8 mg tablet 8 mg PO TID PRN (Reason: Nausea) RF: 0 Eliquis 5 mg tablet 5 mg PO BID RF: 0 sulfamethoxazole-trimethoprim [Bactrim DS] 800-160 mg tablet 1 tab PO BID Qty: 14 RF: 0 Referrals: [facility] [Outside] <Lul Montiel, DO - Last Filed: 02/20/20 16:07> Cosign ED Attending Cosignature Attestation: Dr Montiel Co-Sign Statement: I was available for consultation during this patient's emergency department visit. This chart is signed by myself for administrative purposes only. I did not have direct contact with this patient during this visit. They were seen independently by the APC.
--- NOTE | 2020-02-20 14:23 | PC.NURSE ---
pt arrived with maria eugenia, tubing was cut by You
--- NOTE | 2020-02-20 14:25 | PC.NURSE ---
concern about michelet, concern about following up with his oncologist. repeatedly stating, the del cid doesnt have any purpose.
[2020-02-20 14:32] LABS: Bacteria Urine Few (2-10); RBC Urine 10-30/HPF (0-5/HPF); Squamous Epithelial Cell Urine 0-1 /HPF (0-5/HPF); Uric Acid Crystals Urine Many; WBC Urine 10-30/HPF (0-5/HPF)
[2020-02-20 14:33] LABS: Amorphous Sediment Urine 2+; Culture Indicated Urine Specimen Cultured
== END 2020-02-20 14:52 | disposition home or self-care (01) ==
PROVIDERS: Emergency Provider Nurse Practitioner Family
DX: T83.9XXA Unspecified complication of genitourinary prosthetic device, implant and graft, initial encounter (principal); R33.8 Other retention of urine; N48.89 Other specified disorders of penis
CPT/HCPCS: 51798; 81003; 81015; 87086; 99282; 99283; 99284

== ENCOUNTER 2020-02-21 22:20 | Inpatient (IN) | payer OTHER, SELFPAY ==
[2019-09-09 17:22] VITALS: BMI 28.6
[2020-02-21 22:50] VITALS: BP 115/63; PULSE 91; RESP 22; TEMP 37.3; O2SAT 100
[2020-02-21] MEDS: LIDOCAINE 2% (UROJET) 5 ML GEL TOP (22:55)
--- NOTE | 2020-02-21 22:55 | DI.CT.S_ITS ---
PROCEDURE: CT HEAD/BRAIN WO CON INDICATIONS: mental status change TECHNIQUE: Noncontrast 4.5 mm thick angled axial sections acquired from the foramen magnum to the vertex, with coronal and sagittal reformats. For radiation dose reduction, the following was used: automated exposure control, adjustment of mA and/or kV according to patient size. COMPARISON: None. FINDINGS: Image quality: Excellent. CSF spaces: Basal cisterns are patent. No extra-axial fluid collections. The ventricles are symmetric in size and shape. Brain: No intracranial bleeds or masses. There is cerebral volume loss for age, with resultant ventricular and sulcal prominence. There are periventricular and deep white matter chronic small vessel ischemic changes. There is intracranial internal carotid artery atherosclerosis. Skull and face: Calvarium and visualized facial bones appear intact, without suspicious lesions. Sinuses: Left maxillary sinus mucosal thickening. The mastoids are clear. IMPRESSION: 1. No acute intracranial abnormalities. 2. Cerebral volume loss and chronic microvascular ischemic changes. 3. Left maxillary sinus disease. No significant discrepancy with the night time nanny radiology preliminary report. Dictated by: Jeff Pagan M.D. on 02/22/2020 at 8:02 Approved by: Jeff Pagan M.D. on 02/22/2020 at 8:03
--- NOTE | 2020-02-21 23:01 | ED_ITS ---
HPI - Male Genitourinary General Chief complaint: Abdominal Pain Stated complaint: Genital Pain Time Seen by Provider: 02/21/20 22:21 Source: patient Mode of arrival: Ambulatory Limitations: no limitations History of Present Illness HPI Narrative: 69-year-old male former smoker chemotherapy for retroperitoneal sarcoma presents again with a chief complaint of suprapubic and penile pain. He has been here multiple times this week and has recurrent urinary retention, he had a Del Cid catheter placed a few days ago and he went home he states that his special needs roommate cut his Del Cid. He denies any neurologic symptoms such as headache, blurred vision or trouble with speech. He has no sore throat, cough, runny nose or shortness of breath. He has had no fever or chills. He admits to the suprapubic tenderness as stated which is worse with motion and improves with rest. 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 The sarcoma had been managed by [facility] in [place]. He is a terrible historian. Initial diagnosis of retro peritoneal sarcoma in 2012 and in 2013 [facility] performed resection of left retroperitoneal mass with left nephrectomy, adrenalectomy and partial colectomy. He had a recurrence in 2014 and the [facility] resected a left upper quadrant mass. In 2016 there was another recurrence and [facility] again resected a large left upper quadrant mass including splenectomy. Patient subsequently developed massive intraoperative hemorrhage and eventually had his care transferred to [facility] in [place]. Two thousand nineteen another recurrence was noted by a mass in the bed of his prior left nephrectomy. Patient was started on gemcitabine and docetaxel chemotherapy on December 10, 2019 most recent imaging from 01/13/2020 notes a stable dominant mass in the left retroperitoneum measuring 12 x 12 cm with increasing central necrosis. Plan is for ongoing paliative chemotherapy with scheduled CT Chest/Abd/Pelvis and discussion with his oncologist in [facility] Complaint: dysuria Onset (ago): hour(s) Duration: constant Location: penis Relieving factors: rest Exacerbating factors: palpation and movement Associated symptoms: Reports denies other symptoms Related Data Sexually active: No Home Medications Medication Instructions Recorded Confirmed apixaban [Eliquis] 5 mg PO BID 01/25/20 01/29/20 ondansetron HCl 8 mg PO TID PRN 01/25/20 01/29/20 Previous Rx's Medication Instructions Recorded sulfamethoxazole-trimethoprim 1 tab PO BID #14 tab 01/29/20 [Bactrim DS] Allergies Allergy/AdvReac Type Severity Reaction Status Date / Time No Known Drug Allergies Allergy Verified 01/29/20 09:05 Review of Systems Constitutional Constitutional: Denies chills, Denies fatigue, Denies fever(s), Denies frequent falls, Denies lethargy and Denies weakness Eyes Eyes: Denies change in vision, Denies eye discharge, Denies irritation and Denies loss of vision ENT Ears, Nose, Mouth, and Throat: Denies change in voice, Denies dizziness, Denies neck pain, Denies sore throat and Denies throat swelling Cardiovascular Cardiovascular: Denies chest pain, Denies irregular heart rhythm, Denies lightheadedness, Denies palpitations, Denies dyspnea, Denies dyspnea on exertion and Denies orthopnea Respiratory Respiratory: Denies cough, Denies dyspnea, Denies dyspnea on exertion and Denies wheezing Gastrointestinal Gastrointestinal: Reports abdominal pain, Denies change in bowel habits, Denies diarrhea, Denies nausea and Denies vomiting Genitourinary Genitourinary: Denies hematuria, Denies flank pain, Denies urinary incontinence and Reports urinary urgency Musculoskeletal Musculoskeletal: Denies back pain, Denies muscle weakness, Denies neck pain, Denies numbness and Denies tingling Integumentary/Breasts Skin/Breast: Denies pruritus, Denies erythema, Denies rash and Denies wounds Neurologic Neurologic: Denies behavioral changes, Denies confusion, Denies dizziness, Denies frequent falls, Denies loss of vision, Denies numbness, Denies tingling and Denies weakness Psychiatric Psychiatric: Denies anxiety, Denies behavioral changes, Denies confusion, Denies depression, Denies homicidal ideation and Denies suicidal ideation Endocrine Endocrine: Denies fatigue, Denies flushing and Denies palpitations Hematologic/Lymphatic Hematologic/Lymphatic: Denies easy bruising Allergic/Immunologic Allergic/Immunologic: Denies urticaria, Denies throat swelling and Denies wheezing Patient History Medical History Sarcoma of retroperitoneum (Acute) Spinal cord injury (Acute) Surgical History H/O splenectomy (Acute) History of nephrectomy (Acute) Hx of partial adrenalectomy (Acute) Social History household members: other Smoking Status: Former smoker alcohol intake: never Smoking Status: Former smoker alcohol intake frequency: 0-2 drinks per day Substance Use Type: marijuana Exam Narrative Exam Narrative: GENERAL: 69-year old patient appears stated age. Well-nourished, well-developed patient, in mild distress. HEAD: Atraumatic. Normocephalic. EYES: Pupils equal round and reactive. Extraocular motions intact. No scleral icterus. No injection or drainage. ENT: Nose without bleeding, purulent drainage. Throat without erythema, tonsillar hypertrophy or exudate. Airway patent. NECK: Trachea midline. Non tender CARDIOVASCULAR: Regular rate and rhythm without murmurs, gallops, or rubs. RESPIRATORY: Clear to auscultation. Breath sounds equal bilaterally. No wheezes, rales, or rhonchi. GASTROINTESTINAL: Abdomen soft, non-tender, nondistended. EXTREMITIES: No edema or joint tenderness. BACK: Nontender without deformity or crepitance. No flank tenderness. NEURO: AOx3. however he is clearly situationaly confused. He speaks nonsensica lly, stating he can't find water to drink so he can flush his system, claiming he hasn't urinated in days, but it is because he hasn't found an appropriate place to do so. SKIN: No rash or erythema of visible areas Initial Vital Signs Initial Vital Signs: Vital Signs Temperature 99.1 F 02/21/20 22:50 Pulse Rate 91 H 02/21/20 22:50 Respiratory Rate 22 02/21/20 22:50 Blood Pressure 115/63 02/21/20 22:50 Pulse Oximetry 100 02/21/20 22:50 Course Course Course Narrative: patient has multiple recent visits and is increasingly confused, he does not understand his need for care and seems unfit to care for himself. 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 He has been here multiple times this week by ambulance from [facility]. call to Dr. Wallace (oncology at [facility]), no need for transfer. He is very comfortable with patient staying here. Suggests ABX for possible UTI given del cid placement for retention. Orders Ordered: ED Orders 02/21/20 22:45 Urinalysis and Microscopic Stat Urine Culture Stat Urine Drug Screen, Rapid Stat 02/21/20 22:55 CT head/brain wo con Stat 02/21/20 22:58 Consult to [employer] - Computer Analyst Stat 02/21/20 23:27 Complete Blood Count AUTO DIFF Stat Comprehensive Metabolic Panel Stat Ethanol (ETOH) Stat 02/21/20 23:57 Packed Cells Stat Type and Screen Stat 02/22/20 00:33 CT chest abd pel w con Stat Ceftriaxone Sodium/Dextrose (Rocephin) 1 gm in 50 mls @ 100 mls/hr IV NOW ONE Stop: 02/22/20 02:57 Discontinued Medications Lidocaine HCl (Urojet) 5 ml TOP NOW ONE Stop: 02/21/20 22:30 Last Admin: 02/21/20 22:55 Dose: 5 ml Documented by: SANJANA Vital Signs Vital signs: Vital Signs - 8 hr 02/21/20 22:50 02/21/20 23:32 02/21/20 23:41 Temperature 99.1 F Pulse Rate 91 H 85 80 Respiratory Rate 22 15 Blood Pressure 115/63 Blood Pressure [Left Arm] 99/59 L Pulse Oximetry 100 100 100 02/22/20 01:12 02/22/20 01:37 02/22/20 02:00 Temperature 98.3 F 98.1 F Pulse Rate 77 78 75 Respiratory Rate 15 14 15 Blood Pressure 109/64 111/61 Blood Pressure [Left Arm] 113/68 Pulse Oximetry 99 MDM - Male Genitourinary Lab Data Result diagrams: 02/21/20 23:27 02/21/20 23:27 Labs: Lab Results 02/21/20 02/21/20 02/21/20 Range/Units 22:45 22:45 23:27 WBC 5.8 (4.5-11.0) X10^3/uL RBC 2.32 L (4.5-5.9) X10^6/uL Hgb 6.9 L* (13.5-17.5) g/dL Hct 21.2 L (41-53) % MCV 91.5 (80-100) fL MCH 29.8 (26-34) PG MCHC 32.5 (30-36) % RDW 24.0 H (11.6-14.8) % Plt Count 235 (150-400) X10^3/uL Neut % (Auto) 82.3 H (50-75) % Lymph % (Auto) 11.6 L (25-40) % [place] % (Auto) 4.6 (3-14) % Eos % (Auto) 0.3 L (2-4) % Baso % (Auto) 1.2 (0-2) % Neut # (Auto) 4800 (6851-9534) /uL Lymph # (Auto) 700 L (8880-7963) /uL [place] # (Auto) 300 (0-900) /uL Eos # (Auto) 0 (0-450) /uL Baso # (Auto) 100 (0-100) /uL RBC Morphology See below Anisocytosis 3+ H Sodium (137-145) mmol/L Potassium (3.4-5.1) mmol/L Chloride (98-107) mmol/L Carbon Dioxide (22-32) mmol/L BUN (9-20) mg/dL Creatinine (0.66-1.25) mg/dL Estimated GFR (>60) mL/min BUN/Creatinine Ratio (6-22) Glucose (80-110) mg/dL Calcium (8.4-10.2) mg/dL Total Bilirubin (0.2-1.3) mg/dL AST (17-59) IU/L ALT (<50) IU/L Alkaline Phosphatase (38-126) U/L Total Protein (6.3-8.2) g/dL Albumin (3.5-5.0) g/dL Globulin (1.7-4.1) g/dL Albumin/Globulin Ratio (1.0-2.8) Urine Color Yellow Urine Appearance Clear Urine pH 6.5 (4.5-8.0) Ur Specific [place] 1.015 (1.000-1.035) Urine Protein Negative (Negative) Urine Glucose (UA) Negative (Negative) g/dL Urine Ketones Negative (NEGATIVE) Urine Occult Blood Trace-intact (Negative) Urine Nitrate Negative (Negative) Urine Bilirubin Negative (NEGATIVE) Urine Urobilinogen 0.2 (0.2) E.U./dL Ur Leukocyte Esterase Trace H (NEGATIVE) Urine RBC 1-5/hpf D (0-5/HPF) Urine WBC 0-1/hpf (0-5/HPF) Urine Bacteria None seen (None) Ur Culture Indicated? Specimen cultured U Opiates 300ng/mL cut Negative (Negative) Ur Oxycodone Screen Negative (Negative) Urine Methadone Screen Negative (Negative) Ur Barbiturates Screen Negative (Negative) U Tricyclic Antidepress Positive H (Negative) Ur Phencyclidine Scrn Negative (Negative) Ur Amphetamines Screen Negative (Negative) U Methamphetamines Scrn Negative (Negative) Ur MDMA Scrn (Ecstasy) Negative (Negative) U Benzodiazepines Scrn Negative (Negative) Urine Cocaine Screen Negative (Negative) U Marijuana (THC) Screen Negative (Negative) Ethyl Alcohol ( - 10) mg/dL Blood Type Antibody Screen Crossmatch 02/21/20 02/22/20 Range/Units 23:27 00:02 WBC (4.5-11.0) X10^3/uL RBC (4.5-5.9) X10^6/uL Hgb (13.5-17.5) g/dL Hct (41-53) % MCV (80-100) fL MCH (26-34) PG MCHC (30-36) % RDW (11.6-14.8) % Plt Count (150-400) X10^3/uL Neut % (Auto) (50-75) % Lymph % (Auto) (25-40) % [place] % (Auto) (3-14) % Eos % (Auto) (2-4) % Baso % (Auto) (0-2) % Neut # (Auto) (5472-1708) /uL Lymph # (Auto) (3121-9805) /uL [place] # (Auto) (0-900) /uL Eos # (Auto) (0-450) /uL Baso # (Auto) (0-100) /uL RBC Morphology Anisocytosis Sodium 135 L (137-145) mmol/L Potassium 4.7 (3.4-5.1) mmol/L Chloride 105 (98-107) mmol/L Carbon Dioxide 28 (22-32) mmol/L BUN 24 H (9-20) mg/dL Creatinine 0.97 (0.66-1.25) mg/dL Estimated GFR > 60.0 (>60) mL/min BUN/Creatinine Ratio 24.7 H (6-22) Glucose 105 (80-110) mg/dL Calcium 8.4 (8.4-10.2) mg/dL Total Bilirubin 0.7 (0.2-1.3) mg/dL AST 138 H (17-59) IU/L ALT 147 H (<50) IU/L Alkaline Phosphatase 119 (38-126) U/L Total Protein 6.1 L (6.3-8.2) g/dL Albumin 2.9 L (3.5-5.0) g/dL Globulin 3.2 (1.7-4.1) g/dL Albumin/Globulin Ratio 0.9 L (1.0-2.8) Urine Color Urine Appearance Urine pH (4.5-8.0) Ur Specific [place] (1.000-1.035) Urine Protein (Negative) Urine Glucose (UA) (Negative) g/dL Urine Ketones (NEGATIVE) Urine Occult Blood (Negative) Urine Nitrate (Negative) Urine Bilirubin (NEGATIVE) Urine Urobilinogen (0.2) E.U./dL Ur Leukocyte Esterase (NEGATIVE) Urine RBC (0-5/HPF) Urine WBC (0-5/HPF) Urine Bacteria (None) Ur Culture Indicated? U Opiates 300ng/mL cut (Negative) Ur Oxycodone Screen (Negative) Urine Methadone Screen (Negative) Ur Barbiturates Screen (Negative) U Tricyclic Antidepress (Negative) Ur Phencyclidine Scrn (Negative) Ur Amphetamines Screen (Negative) U Methamphetamines Scrn (Negative) Ur MDMA Scrn (Ecstasy) (Negative) U Benzodiazepines Scrn (Negative) Urine Cocaine Screen (Negative) U Marijuana (THC) Screen (Negative) Ethyl Alcohol < 10 ( - 10) mg/dL Blood Type A Positive Antibody Screen Negative Crossmatch See Detail Imaging Data CT scan - abdomen/pelvis: Radiologist's Impression: CT Chest - NAP CT Abd/pel: large L retroperitoneal soft tissue mass, stranding near tail of pancreas (patient has no epigastric pain) Discharge Plan Departure Patient Disposition: Admitted as Observation Admit Date/Time: 02/22/20 02:39 Admit Provider: Kalani Hernandez
[2020-02-21 23:26] LABS: Bacteria Urine None Seen
[2020-02-21 23:28] LABS: Appearance Urine UA CLEAR; Bilirubin Urine UA NEGATIVE (NEGATIVE); Color Urine UA YELLOW; Glucose Urine UA NEGATIVE (Negative); Ketones Urine UA NEGATIVE (NEGATIVE); Leukocyte Esterase Urine UA TRACE (NEGATIVE); Nitrite Urine UA NEGATIVE (Negative); Occult Blood Urine UA TRACE-INTACT (Negative); Protein Urine UA NEGATIVE (Negative); Specific Gravity Urine UA 1.015 (1.000-1.035); Urobilinogen Urine UA 0.2 E.U./dL (0.2); WBC Urine 0-1/HPF (0-5/HPF); pH Urine UA 6.5 (4.5-8.0)
[2020-02-21 23:29] LABS: RBC Urine 1-5/HPF (0-5/HPF)
--- NOTE | 2020-02-21 23:29 | PC.NURSE ---
PT arrives via EMS, states penis pain and hx of urinary retention and seen here multiple times last week, had a del cid cath placed and states his roomate cut his del cid. Pt arrives without del cid cath in place, suprapubic tenderness. Pt is poor historian.
[2020-02-21 23:30] LABS: Culture Indicated Urine Specimen Cultured
[2020-02-21 23:31] LABS: UR Morphine/Opiate cutoff 300 Negative (Negative); Ur Creatinine Normal (Normal); Ur Specific Gravity Normal (Normal); Urine Amphetamines Negative (Negative); Urine Barbiturates Negative (Negative); Urine Benzodiazepines Negative (Negative); Urine Cocaine Negative (Negative); Urine MDMA Negative (Negative); Urine Methadone Negative (Negative); Urine Methamphetamines Negative (Negative); Urine Oxycodone Negative (Negative); Urine Phencyclidine Negative (Negative); Urine Tetrahydrocannabinol Negative (Negative); Urine Tricyclic Antidepressant Positive (Negative); Urine pH Normal (Normal)
[2020-02-21 23:32] VITALS: PULSE 85; O2SAT 100
[2020-02-21 23:41] VITALS: BP 99/59; PULSE 80; RESP 15; O2SAT 100
[2020-02-21 23:49] LABS: Add Manual Diff / Slide Review NO; Alanine Aminotransferase 147 IU/L (<50); Albumin 2.9 g/dL (3.5-5.0); Albumin Globulin Ratio 0.9 (1.0-2.8); Alkaline Phosphatase 119 U/L (38-126); Aspartate Aminotransferase 138 IU/L (17-59); BUN Creatinine Ratio 24.7 (6-22); Basophils Absolute Auto 100 /uL (0-100); Basophils Percent Auto 1.2 % (0-2); Bilirubin Total 0.7 mg/dL (0.2-1.3); Blood Urea Nitrogen 24 mg/dL (9-20); Calcium 8.4 mg/dL (8.4-10.2); Carbon Dioxide 28 mmol/L (22-32); Chloride 105 mmol/L (98-107); Eosinophils Absolute Auto 0 /uL (0-450); Eosinophils Percent Auto 0.3 % (2-4); Estimated Glomerular Filt Rate > 60.0 mL/min (>60); Globulin 3.2 g/dL (1.7-4.1); Glucose 105 mg/dL (80-110); HEMOLYSIS < 15 (0-50); Hematocrit 21.2 % (41-53); Lymphocytes Absolute Auto 700 /uL (1100-4500); Lymphocytes Percent Auto 11.6 % (25-40); Mean Corpuscular HGB Conc 32.5 % (30-36); Mean Corpuscular Hemoglobin 29.8 PG (26-34); Mean Corpuscular Volume 91.5 fL (80-100); Monocytes Absolute Auto 300 /uL (0-900); Monocytes Percent Auto 4.6 % (3-14); Neutrophils Absolute Auto 4800 /uL (1500-7000); Neutrophils Percent Auto 82.3 % (50-75); Platelet Count 235 X10^3/uL (150-400); Potassium 4.7 mmol/L (3.4-5.1); Red Blood Cell Count 2.32 X10^6/uL (4.5-5.9); Sodium 135 mmol/L (137-145); Total Protein 6.1 g/dL (6.3-8.2); White Blood Cell Count 5.8 X10^3/uL (4.5-11.0)
[2020-02-21 23:50] LABS: Ethanol (ETOH) < 10 mg/dL
[2020-02-21 23:53] LABS: Hemoglobin 6.9 g/dL (13.5-17.5)
[2020-02-22] VITALS (14 sets, daily range): BP systolic 98–129; BP diastolic 61–73; PULSE 74–97; RESP 14–20; TEMP 36.1–38.7; O2SAT 98–100; BMI 18.6
[2020-02-22 00:09] LABS: Anisocytosis 3+
--- NOTE | 2020-02-22 00:33 | DI.CT.S_ITS ---
PROCEDURE: CT CHEST ABD PEL W CON INDICATIONS: retroperitoneal sarcoma, unexplained anemia TECHNIQUE: After the administration of oral and intravenous contrast, 5 mm thick sections acquired from the lung apices to the symphysis. 5 mm coronal and sagittal reformats were performed, with additional 7 mm coronal MIP reformats through the lungs. For radiation dose reduction, the following was used: automated exposure control, adjustment of mA and/or kV according to patient size. COMPARISON: [facility], CT, CT HEAD/BRAIN WO CON, 02/21/2020, 22:56. [facility], CT, CT ABDOMEN PELVIS W CON, 09/09/2019, 11:57. [facility], US, US RENAL COMPLETE, 05/22/2019, 12:27. [facility], CT, CT ABDOMEN PELVIS WO/W CON, 03/24/2018, 13:32. [facility], MR, ABDOMEN W&WO CONTRAST, 04/18/2017, 11:02. [facility], CT, ABDOMEN/PELVIS WITH CONTRAST, 09/13/2013, 20:13. [facility], CT, CT ABDOMEN PELVIS W CON, 04/11/2018, 11:22. [facility], CT, CT CHEST ABDOMEN PELVIS WITH CONTRAST, 12/10/2019, 16:15. [facility], CR, XR ABDOMEN 1 VIEW, 02/18/2020, 15:58. FINDINGS: Image quality: Excellent. CHEST: Lungs and pleura: No acute airspace opacities. No pleural effusions or pneumothorax. Central and peripheral airways appear patent and normal in caliber. Mediastinum: Heart size is normal. No pericardial effusion. No mediastinal or hilar adenopathy by size criteria. Thoracic aorta and central pulmonary arteries are normal in size. Esophagus is normal in caliber. No hiatal hernia. A Port-A-Cath from a right-sided approach extends into the distal SVC Chest wall: No axillary or supraclavicular adenopathy by size criteria. Thyroid gland appears normal. ABDOMEN: Solid organs: Liver is normal in size and enhancement. Gallbladder appears normal. Biliary system is non dilated. Pancreas enhances normally. Spleen is small in size and normal in enhancement, having been previously largely resected. No right-sided adrenal nodules. The left adrenal gland cannot be clearly differentiated from the mass and may be surgically absent or involved in the neoplastic process on the left. There has been prior left nephrectomy, and the right kidney demonstrates normal size and enhancement, without hydronephrosis. A single nonobstructing 3 mm calculus is located within the lower third collecting system of the right kidney with an adjacent punctate 1 mm calculus. Surgical clips are consistent with prior left nephrectomy, and there is a retroperitoneal left flank region no mass previously identified, currently measuring up to 10.4 cm oblique AP, 8.7 cm orthogonal oblique transverse, and up to 13.2 cm craniocaudad. This mass had measured up to 13.4 x 12.3 x 15.9 cm 12/10/19, having diminished in size between the 2 studies. Peritoneum and bowel: Bowel loops demonstrate normal wall thickness and caliber. No free fluid or air. Nodes and vessels: No retroperitoneal or mesenteric adenopathy by size criteria. Aorta and inferior vena cava are normal in size. Miscellaneous: No ventral hernias. PELVIS: Genitourinary: Bladder wall thickness is normal. A Anaya catheter largely empties the bladder lumen. Miscellaneous: No inguinal hernias or adenopathy. Penile implant, control bulb near the superior inguinal canal on the right. Bones: No suspicious bony lesions. No vertebral body compression fractures. IMPRESSION: 1. There has been a definite interval reduction in size of the malignant-appearing left flank mass in this patient who has undergone prior left nephrectomy and subtotal splenectomy. No distant metastatic disease is found. 2. No distant or regional metastatic disease identified. 3. Incidental note is made of 2 lower third right renal collecting system nonobstructive calculi, one measuring 3 mm and one measuring 1 mm, immediately adjacent. 4. Anaya catheter in normal position. Incidental note made of penile implant and control bulb, without adjacent inflammation. Port-A-Cath from right sided approach extends into the distal SVC. Dictated by: Edwin Hendrix M.D. on 02/22/2020 at 9:28 Approved by: Edwin Hendrix M.D. on 02/22/2020 at 9:51
--- NOTE | 2020-02-22 01:00 | PC.NURSE ---
PT receives chemotherapy for retroperitoneal sarcoma at [facility] and receives oncology care [facility] in [place], [place].
--- NOTE | 2020-02-22 03:32 | P.HP_ITS ---
History of Present Illness History of Present Illness Date Patient Seen: 02/22/20 Time Patient Seen: 03:15 Chief complaint: Genital Pain Narrative: Patient is a difficult and vague historian. He is undergoing treatment for a retroperitoneal liposarcoma. He does not appear to have a primary care physician but sees , oncology, as well as receiving care from [facility] in [facility]. The patient came in with a complaint of urinary retention which appears to have been a several-day problem necessitating a visit to the ED over the last several days, where they inserted a Anaya catheter. He returned today and his Anaya catheter was out. It is unclear as to how the Anaya was removed, the ED provider thought that 1 of the patient's housemates may have removed it or a portion of it. 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 Other than be cold, the patient denies sweats or chills, difficulty breathing, chest pain, nausea or vomiting, he does endorse having vague neuro logical symptoms associated with spinal surgery he had a number of years ago. He also endorses urinary retention and small bowel movements. The patient has had a history of clots and is on Eliquis and he has been taking 5 mg twice a day. In the emergency department he was found to have a hemoglobin and hematocrit of 6 and 21 and was started on 2 units PRBC and the ED requested admission. Per the ED provider's summary, Initial diagnosis of retroperitoneal sarcoma in 2012 [facility] with left nephrectomy, adrenalectomy and partial colectomy. He had a recurrence in [facility]. In 2016 there was another recurrence [facility] a large left upper quadrant mass including splenectomy. Patient subsequently developed massive intraoperative hemorrhage and eventually had his care transferred to [facility] in [place]. 2019, another recurrence was noted by a mass in the bed of his prior left nephrectomy. Patient was started on gemcitabine and docetaxel chemotherapy on December 10, 2019 most recent imaging from 01/13/2020 notes a stable dominant mass in the left retroperitoneum measuring 12 x 12 cm with increasing central necrosis. Plan is for ongoing paliative chemotherapy with scheduled CT Chest/Abd/Pelvis and discussion with his oncologist in [facility]. In August 2019, he was admitted and treated for a spinal abscess. The abscess was surgically removed and the patient was treated with IV zosyn and eventually discharged. Patient History Medical History (Updated 02/22/20 @ 03:47 by FELICIA Shaw) Liposarcoma of retroperitoneum (Acute) Spinal cord injury (Acute) Surgical History (Updated 02/22/20 @ 03:46 by FELICIA Shaw) H/O splenectomy (Acute) History of left nephrectomy (Acute) Hx of partial adrenalectomy (Acute) Family & Social History Family History (Updated 02/22/20 @ 04:04 by FELICIA Shaw) Father Lung cancer Social History: household members other Tobacco & Substance use: Smoking Status Former smoker alcohol intake never alcohol intake frequency 0-2 drinks per day Substance Use Type marijuana, denied use to [employer] Home Medications and Allergies Home Medications Medication Instructions Recorded Confirmed Type apixaban [Eliquis] 5 mg PO BID 01/25/20 02/22/20 History ondansetron HCl 8 mg PO TID PRN 01/25/20 02/22/20 History sulfamethoxazole-trimethoprim 1 tab PO BID #14 tab 01/29/20 02/22/20 Rx [Bactrim DS] Allergies Allergy/AdvReac Type Severity Reaction Status Date / Time No Known Drug Allergies Allergy Verified 01/29/20 09:05 Review of Systems Review of Systems ROS: Yes All systems reviewed with the patient and are negative except as otherwise documented Exam Vital Signs (past 8 hours): - 02/21/20 22:50 02/21/20 23:32 02/21/20 23:41 Temperature 99.1 F Pulse Rate 91 H 85 80 Respiratory Rate 22 15 Blood Pressure 115/63 Blood Pressure [Left Arm] 99/59 L Pulse Oximetry 100 100 100 02/22/20 01:12 02/22/20 01:37 02/22/20 02:00 Temperature 98.3 F 98.1 F Pulse Rate 77 78 75 Respiratory Rate 15 14 15 Blood Pressure 109/64 111/61 Blood Pressure [Left Arm] 113/68 Pulse Oximetry 99 02/22/20 02:50 02/22/20 02:57 Temperature 98.1 F 98.1 F Pulse Rate 75 75 Respiratory Rate 16 14 Blood Pressure 113/68 113/68 Blood Pressure [Left Arm] Pulse Oximetry Oxygen Delivery Method Room Air Narrative Exam Narrative: Gen: Alert, oriented, well-developed 69 y.o. male, receiving a second unit of PRBC HEENT: normocephalic, atraumatic, conjunctiva clear, sclera non-icteric, oral mucosa pink and moist Neck: supple, full ROM, no JVD Resp: Lungs CTA, non-labored breathing CV: RRR, faint systolic murmur, no rubs Abd: soft, non-tender, normoactive BTs Skin: Healed scar in lower thoracic to mid-lumbar region, dry and intact Neuro: Alert and oriented X 4 w/no focal deficits Extremities: moves all 4 extremities, is ambulatory, negative Daya?s sign Psyche: normal mood and affect. Do not believe he is being very forthright with me. Objective Labs Result Diagrams: 02/21/20 23:27 02/21/20 23:27 Labs: Laboratory Results - last 24 hr 02/21/20 02/21/20 02/21/20 22:45 22:45 23:27 WBC 5.8 RBC 2.32 L Hgb 6.9 L* Hct 21.2 L MCV 91.5 MCH 29.8 MCHC 32.5 RDW 24.0 H Plt Count 235 Neut % (Auto) 82.3 H Lymph % (Auto) 11.6 L [place] % (Auto) 4.6 Eos % (Auto) 0.3 L Baso % (Auto) 1.2 Neut # (Auto) 4800 Lymph # (Auto) 700 L [place] # (Auto) 300 Eos # (Auto) 0 Baso # (Auto) 100 RBC Morphology See below Anisocytosis 3+ H Sodium Potassium Chloride Carbon Dioxide BUN Creatinine Estimated GFR BUN/Creatinine Ratio Glucose Calcium Total Bilirubin AST ALT Alkaline Phosphatase Total Protein Albumin Globulin Albumin/Globulin Ratio Urine Color Yellow Urine Appearance Clear Urine pH 6.5 Ur Specific [place] 1.015 Urine Protein Negative Urine Glucose (UA) Negative Urine Ketones Negative Urine Occult Blood Trace-intact Urine Nitrate Negative Urine Bilirubin Negative Urine Urobilinogen 0.2 Ur Leukocyte Esterase Trace H Urine RBC 1-5/hpf D Urine WBC 0-1/hpf Urine Bacteria None seen Ur Culture Indicated? Specimen cultured U Opiates 300ng/mL cut Negative Ur Oxycodone Screen Negative Urine Methadone Screen Negative Ur Barbiturates Screen Negative U Tricyclic Antidepress Positive H Ur Phencyclidine Scrn Negative Ur Amphetamines Screen Negative U Methamphetamines Scrn Negative Ur MDMA Scrn (Ecstasy) Negative U Benzodiazepines Scrn Negative Urine Cocaine Screen Negative U Marijuana (THC) Screen Negative Ethyl Alcohol Blood Type Antibody Screen Crossmatch 02/21/20 02/22/20 23:27 00:02 WBC RBC Hgb Hct MCV MCH MCHC RDW Plt Count Neut % (Auto) Lymph % (Auto) [place] % (Auto) Eos % (Auto) Baso % (Auto) Neut # (Auto) Lymph # (Auto) [place] # (Auto) Eos # (Auto) Baso # (Auto) RBC Morphology Anisocytosis Sodium 135 L Potassium 4.7 Chloride 105 Carbon Dioxide 28 BUN 24 H Creatinine 0.97 Estimated GFR > 60.0 BUN/Creatinine Ratio 24.7 H Glucose 105 Calcium 8.4 Total Bilirubin 0.7 AST 138 H ALT 147 H Alkaline Phosphatase 119 Total Protein 6.1 L Albumin 2.9 L Globulin 3.2 Albumin/Globulin Ratio 0.9 L Urine Color Urine Appearance Urine pH Ur Specific [place] Urine Protein Urine Glucose (UA) Urine Ketones Urine Occult Blood Urine Nitrate Urine Bilirubin Urine Urobilinogen Ur Leukocyte Esterase Urine RBC Urine WBC Urine Bacteria Ur Culture Indicated? U Opiates 300ng/mL cut Ur Oxycodone Screen Urine Methadone Screen Ur Barbiturates Screen U Tricyclic Antidepress Ur Phencyclidine Scrn Ur Amphetamines Screen U Methamphetamines Scrn Ur MDMA Scrn (Ecstasy) U Benzodiazepines Scrn Urine Cocaine Screen U Marijuana (THC) Screen Ethyl Alcohol < 10 Blood Type A Positive Antibody Screen Negative Crossmatch See Detail Assessment & Plan Assessment & Plan narrative: Jagdish Alvarez will be admitted for a blood transfusion and oncology advised patient receive empiric antibiotic treatment for a potential urinary tract infection. Severe anemia, acute, present on admission -He is receiving the second of two units PRBC -Post transfusion H and H to be drawn Suspected UTI -oncology has recommended covering with broad spectrum antibiotic -He received IV ceftriaxone 1 gram at 2 am today, subsequent doses scheduled starting on 02/22. Liposarcoma of the retroperitoneum -oncology following, please call in the am History of chronic DVT -Eliquis is held due to acute blood loss Consults: Dr. Dangelo, Oncology, consult ordered and appreciated Patient is placed into inpatient bed. Stay is likely to exceed 2 midnights. FEN: saline lock, regular diet, C/BMP 02/22 VTE prophylaxis: Bilateral SCDs Dispo: unknown at this time Code Status: Full code as discussed with patient
--- NOTE | 2020-02-22 04:22 | PC.NURSE ---
0315 Admitted to room 218 2nd. unit of PRBC's infusing from ER. Oriented to his room, showed how to use his call light, TV & bed controls. Hx. of chronic back pain, but able to rest right now. Anaya placed in ER, draining dark eulalia urine. Will cont. POC & monitor.
[2020-02-22] MEDS: CEFTRIAXONE 1 GM/50 ML FROZ.PIGGY IV (05:29)
--- NOTE | 2020-02-22 05:57 | PC.NURSE ---
Second unit of PRBC's transfused @ 0515, lab personnel notified & aware. Tolerated transfusion well no S&S of reactions noted
[2020-02-22 06:55] LABS: Add Manual Diff / Slide Review NO; Basophils Absolute Auto 100 /uL (0-100); Eosinophils Absolute Auto 0 /uL (0-450); Eosinophils Percent Auto 0.3 % (2-4); Hematocrit 25.9 % (41-53); Hemoglobin 8.5 g/dL (13.5-17.5); Lymphocytes Absolute Auto 800 /uL (1100-4500); Lymphocytes Percent Auto 11.5 % (25-40); Mean Corpuscular HGB Conc 32.8 % (30-36); Mean Corpuscular Hemoglobin 29.1 PG (26-34); Mean Corpuscular Volume 88.6 fL (80-100); Monocytes Absolute Auto 100 /uL (0-900); Monocytes Percent Auto 1.6 % (3-14); Neutrophils Absolute Auto 5800 /uL (1500-7000); Neutrophils Percent Auto 85.6 % (50-75); Platelet Count 207 X10^3/uL (150-400); Red Blood Cell Count 2.92 X10^6/uL (4.5-5.9); Red Cell Distribution Width 24.7 % (11.6-14.8); White Blood Cell Count 6.8 X10^3/uL (4.5-11.0)
[2020-02-22 07:08] LABS: Anisocytosis 3+
[2020-02-22] MEDS: DOCUSATE 100 MG CAPSULE PO ×2 (09:33→20:17)
[2020-02-22] MEDS: SODIUM CHLORIDE 0.9% FLUSH 10 ML IV ×2 (09:34→20:17)
--- NOTE | 2020-02-22 16:03 | CM.DANOTE ---
Brief DCP Assessment: EMR Reviewed: Patient is a 69 yr old male who was admitted for Urinary retention. Patient does not have a PCP but does see Dr. Dangelo in Oncology. CM/Rn attempted to meet with patient several times but was unable to due to patient sleeping or provider meeting with patient. CM department will follow up in the AM for Assessment and to make sure their are no director of patient financial services needs. According to amended note patient Anaya catheter was removed by himself and not someone in his home and is able to get food which is brought in by one of his house mates. CM department will follow up since it is anticipated that if patient tolerates Anaya well, pt will d/c home tomorrow. Patient has previously had [facility] in august 2019 and may need [facility] for help with Catheter care at home. I: [facility] and self pay Plan: D/C home when medically stable as long as not social needs are determined on full assessment. DANCE COSTUME DESIGNER will follow up tomorrow with patient to make sure he is ready for D/C home. Jayna Mendes RN Discharge Planning/Care Management CM Discharge Assessment Start: 02/22/20 15:58 Freq: Status: Active Protocol: Document 02/22/20 15:59 HS (Rec: 02/22/20 16:02 HS [id number]) Discharge Planning Assessment Assigned Car Whacker Jayna Mendes Rn DPOA/Assigned Designee Name Rob Alvarez (brother) Contact Information [phone] Advance Directives? No Advance Directives on File No History Provided By Patient Has Patient been admitted in last 30 No days? Prior Living Arrangements House Household Members other Willing to Return to Facility? No Independent with ADL's Yes Is patient alert and oriented? Yes Comment Unable to meet with patient - due to him sleeping and meeting with provider at attempted CM visits Caregiver for Another Yes: Cares for individuals with Disabilities Discharge Plan Home Whiteboard Updated in Patient Room with Yes name and ext. # of Car Whacker Review Status In Process Next Review Type Continued Stay Review
[2020-02-22] MEDS: ACETAMINOPHEN 325 MG TABLET 650 MG PO (16:32)
--- NOTE | 2020-02-22 22:19 | PC.NURSE ---
A&OX1-2, pt thinks the president is Mauricio Avalos. poor appetite, ate 25% of his dinner. he drank all his ensure. encourage pt to drink more fluids. q2turn. SCDS. pt's temp was 101.6, administered tylenol, temp down 98.7. chemo precautions.
[2020-02-23] VITALS (7 sets, daily range): BP systolic 97–124; BP diastolic 55–70; PULSE 84–90; RESP 18–20; TEMP 36.4–38.2; O2SAT 96–99
[2020-02-23 06:39] LABS: Alanine Aminotransferase 116 IU/L (<50); Albumin 2.7 g/dL (3.5-5.0); Albumin Globulin Ratio 0.8 (1.0-2.8); Alkaline Phosphatase 128 U/L (38-126); Aspartate Aminotransferase 77 IU/L (17-59); BUN Creatinine Ratio 25.8 (6-22); Bilirubin Total 0.5 mg/dL (0.2-1.3); Blood Urea Nitrogen 23 mg/dL (9-20); Calcium 8.3 mg/dL (8.4-10.2); Carbon Dioxide 23 mmol/L (22-32); Chloride 106 mmol/L (98-107); Estimated Glomerular Filt Rate > 60.0 mL/min (>60); Globulin 3.2 g/dL (1.7-4.1); Glucose 96 mg/dL (80-110); HEMOLYSIS < 15 (0-50); Potassium 4.2 mmol/L (3.4-5.1); Sodium 133 mmol/L (137-145); Total Protein 5.9 g/dL (6.3-8.2)
[2020-02-23 06:42] LABS: Add Manual Diff / Slide Review NO; Basophils Absolute Auto 100 /uL (0-100); Basophils Percent Auto 0.9 % (0-2); Eosinophils Absolute Auto 0 /uL (0-450); Eosinophils Percent Auto 0.4 % (2-4); Hematocrit 25.6 % (41-53); Hemoglobin 8.4 g/dL (13.5-17.5); Lymphocytes Absolute Auto 700 /uL (1100-4500); Lymphocytes Percent Auto 10.8 % (25-40); Mean Corpuscular HGB Conc 32.6 % (30-36); Mean Corpuscular Hemoglobin 28.7 PG (26-34); Mean Corpuscular Volume 87.9 fL (80-100); Monocytes Absolute Auto 100 /uL (0-900); Monocytes Percent Auto 2.3 % (3-14); Neutrophils Absolute Auto 5400 /uL (1500-7000); Neutrophils Percent Auto 85.6 % (50-75); Platelet Count 162 X10^3/uL (150-400); Red Blood Cell Count 2.91 X10^6/uL (4.5-5.9); Red Cell Distribution Width 24.8 % (11.6-14.8); White Blood Cell Count 6.4 X10^3/uL (4.5-11.0)
[2020-02-23 07:05] LABS: Anisocytosis 2+
--- NOTE | 2020-02-23 08:32 | P.DS_ITS ---
History of Present Illness History of Present Illness Date Patient Seen: 02/23/20 Chief complaint: Genital Pain Narrative: [address] [address] History & Physical Report Patient: Davin Alvarez WMR#: [id number] : 1Acct:[id number] Age/Sex: 69 / M Date of Service: 02/22/20 Provider: Kalani eHrnandez ADDENDUM Patient is seen and examined today. Agree with history and physical as outlined below. Patient admits to removing his catheter himself. He states that following removal he developed immediate pain. He is in agreement with continuing the Anaya catheter given his urinary retention. He has no other complaints at this time. Plan at this time is to continue the Anaya catheter. If he tolerates this without difficulty anticipate discharge home tomorrow. Addendum Documented By:Donna Reis MD02/22/20 1526 Addendum Signed By:<Electronically signed by Donna Reis MD>02/22/20 1526 History of Present Illness History of Present Illness Date Patient Seen: 02/22/20 Time Patient Seen: 03:15 Chief complaint: Genital Pain Narrative: Patient is a difficult and vague historian. He is undergoing treatment for a retroperitoneal liposarcoma. He does not appear to have a primary care physician but sees , oncology, as well as receiving care from [facility] in [facility]. The patient came in with a complaint of urinary retention which appears to have been a several-day problem necessitating a visit to the ED over the last several days, where they inserted a Anaya catheter. He returned today and his Anaya catheter was out. It is unclear as to how the Anaya was removed, the ED provider thought that 1 of the patient's housemates may have removed it or a portion of it. 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 Other than be cold, the patient denies sweats or chills, difficulty breathing, chest pain, nausea or vomiting, he does endorse having vague neurological symptoms associated with spinal surgery he had a number of years ago. He also endorses urinary retention and small bowel movements. The patient has had a history of clots and is on Eliquis and he has been taking 5 mg twice a day. In the emergency department he was found to have a hemoglobin and hematocrit of 6 and 21 and was started on 2 units PRBC and the ED requested admission. Per the ED provider's summary, Initial diagnosis of retroperitoneal sarcoma in 2012 and in 2013 [facility] performed resection of left retroperitoneal mass with left nephrectomy, adrenalectomy and partial colectomy. He had a recurrence in 2014 and the [facility] resected a left upper quadrant mass. In 2016 there was another recurrence and [facility] again resected a large left upper quadrant mass including splenectomy. Patient subsequently developed massive intraoperative hemorrhage and eventually had his care transferred to [facility] in [place]. 2019, another recurrence was noted by a mass in the bed of his prior left nephrectomy. Patient was started on gemcitabine and docetaxel chemotherapy on December 10, 2019 most recent imaging from 01/13/2020 notes a stable dominant mass in the left retroperitoneum measuring 12 x 12 cm with increasing central necrosis. Plan is for ongoing paliative chemotherapy with scheduled CT Chest/Abd/Pelvis and discussion with his oncologist in [facility]. In August 2019, he was admitted and treated for a spinal abscess. The abscess was surgically removed and the patient was treated with IV zosyn and eventually discharged. Discharge Providers Provider Date of admission: 02/22/20 02:39 Discharge Date: 02/23/20 Consults: 02/21/20 22:58 Consult to BUSINESS PLANNING DIRECTOR - Mid Level Java Developer Stat Comment: BUSINESS PLANNING DIRECTOR Consult: Community Health Res Need 02/22/20 03:30 Consult to Discharge Planning Routine Comment: Food insecurity, home safety 02/22/20 04:08 Consult to Physician Routine Comment: Consulting Provider: Alysha Dangelo Reason for consultation: Retroperonteal liposarcoma patient admitted for severe anemia Has provider been notified: Yes 02/23/20 08:29 Consult to Physical Therapy Evaluate & Treat Comment: Physician Instructions: Evaluate and Treat Discharge provider: Donna Reis MD Summary Hospital Course Discharge Diagnosis: 1. Urinary retention 2. Acute anemia, likely related to cancer no evidence of blood loss 3. Retroperitoneal liposarcoma 4. BPH 5. Autism spectrum disorder 6. Hyponatremia Exam Vital Signs (past 8 hours): Oxygen Delivery Method Room Air Oxygen Flow Rate 0 Narrative Exam Narrative: Pleasant male in NAD Lungs: clear to auscultation CV:RRR nl Sl S2 2/6 GAVI ABd; Soft/ nontender non distended Ext: no edema Objective Labs Result Diagrams: 02/23/20 06:19 02/23/20 06:19 Labs: Laboratory Results - last 24 hr 02/23/20 02/23/20 06:19 06:19 WBC 6.4 RBC 2.91 L Hgb 8.4 L Hct 25.6 L MCV 87.9 MCH 28.7 MCHC 32.6 RDW 24.8 H Plt Count 162 Neut % (Auto) 85.6 H Lymph % (Auto) 10.8 L [place] % (Auto) 2.3 L Eos % (Auto) 0.4 L Baso % (Auto) 0.9 Neut # (Auto) 5400 Lymph # (Auto) 700 L [place] # (Auto) 100 Eos # (Auto) 0 Baso # (Auto) 100 RBC Morphology Not Reportable Anisocytosis 2+ H Sodium 133 L Potassium 4.2 Chloride 106 Carbon Dioxide 23 BUN 23 H Creatinine 0.89 Estimated GFR > 60.0 BUN/Creatinine Ratio 25.8 H Glucose 96 Calcium 8.3 L Total Bilirubin 0.5 AST 77 H ALT 116 H Alkaline Phosphatase 128 H Total Protein 5.9 L Albumin 2.7 L Globulin 3.2 Albumin/Globulin Ratio 0.8 L Discharge Plan Discharge Plan Discharge Problem: Anemia, Acute urinary retention Patient Disposition: Home Discharge comment: Needs outpatient URology evaluation for urinary retention Discharge orders & Medications Prescriptions: Continued ondansetron HCl 8 mg tablet 8 mg PO TID PRN (Reason: Nausea) RF: 0 Eliquis 5 mg tablet 5 mg PO BID RF: 0 sulfamethoxazole-trimethoprim [Bactrim DS] 800-160 mg tablet 1 tab PO BID Qty: 14 RF: 0 Discharge Health Status Multidrug resistant organism: No MDRO Diet/Activity/Treatments Diet: Diet as Tolerated Catheter: 2-way Anaya Catheter comment: Needs outpatient Urology evaluation re: catheter removal Skin/Wound/Dressing Care Report to your healthcare provider any signs of infection, such as:: chills, fever and increased pain Discharge Data Attending Provider: Kalani Hernandez Admit Date/Time: 02/22/20 02:39 Quality VTE Deep Vein Thrombosis/Pulmonary Embolism Present on Admission: No
[2020-02-23] MEDS: SODIUM CHLORIDE 0.9% FLUSH 10 ML IV ×2 (09:10→21:10)
[2020-02-23] MEDS: DOCUSATE 100 MG CAPSULE PO ×2 (09:10→21:10)
--- NOTE | 2020-02-23 10:43 | CM.DPC ---
Addendum entered by MEHDI Butt 02/23/20 15:03: ADD: Per PT, pt weak and below baseline and recommending pt stay tonight and d/c home with HH PT tomorrow when he can better manage stairs. updated and agreeable. Per PT and RN, pt lives [place] [facility] [place] with 17 yo and 13 yo foster sons who have neighbors helping to keep an eye on them. Per Zoe, Oncology THALIA, pt has a long hx with [facility] and pt can become aggressive at times and therefore is no longer a patient at their facility but is established at the [facility] On[facility] clinic. THALIA updated CM Bead Maker Nadia who will notify RN and station mechanic in case pt begins to have behaviors but so far no behaviors noted. Per RN, pt states he feels staying the night will be helpful and confirmed that he spoke to his 17 yo foster son who can provide transport home tomorrow to [facility]. SW called [facility] and confirmed they can accept the pt and aware he will d/c home tomorrow. BF Original Note: DCP Discharge Home Per , pt is medically stable to d/c home today but with follow up Oncology with his established Oncologist at [facility] and new referral to Urologist in outpt setting. PT has been ordered and going bedside to assess pt now prior to d/c. agreeable with HH RN and likely PT due to pt's weakness from significant anemia, UTI, and del cid cath management issues. Per RN, pt aware that he is to work with PT now prior to d/c and plans to call someone for a ride home now and if he cannot secure a ride then pt plans to take [employer] to [facility] to get home. Pt resides on [facility] and therefore only available HH agency is [facility] and THALIA faxed clinicals including signed F2F and MD orders and called and requested review under his Medicare benefits. SW received a call from the [facility] coordinator stating that the pt is 80% service connected but he has a special signifier that actually pays and covers the pt like he is 100% service connected. Pt also has Medicare A and B. Pt's PCP is still at the [facility] ([phone]) with Dr. Desiree Aguero. Pt has benefits for HH under Medicare but could also access them through [facility] if needed as well as revolving inventory clerk assist if identified. Plan: SW to follow for [facility] review and confirm they can accept the pt and PT initial eval and recommendations prior to completing bedside d/c assessment with pt today. MEHDI Butt
--- NOTE | 2020-02-23 12:54 | PT.IIE ---
Surgical History (Last Updated 02/22/20 @ 03:46 by FELICIA Shaw) H/O splenectomy (Acute) History of left nephrectomy (Acute) Hx of partial adrenalectomy (Acute) Medical History (Last Updated 02/22/20 @ 03:46 by FELICIA Shaw) Liposarcoma of retroperitoneum (Acute) Spinal cord injury (Acute) Physical Therapy Inpatient Evaluation/Re-Eval M1 PT/OT-IP Prior Functional Status Start: 02/23/20 09:13 Freq: NEEDED Status: Active Protocol: Document 02/23/20 12:30 HH (Rec: 02/23/20 12:54 [id number]) Medical Review Prior Functional Status Medical History Reviewed Yes Diet/Fluid Consistency Regular Communication no deficits noted. Able to make needs known Mobility and Gait Independent for all mobility and ADLs/IADLs without AD. Able to drive as well Social History Household Members children,adopted family,other Living Arrangements House Number of Floors (Floors) One Floor Number of Stairs To Enter/Railing? 12 steps with L rail Home Environment Standard Height Toilet,Walk in Shower Employment Status Retired Additional Social History Comment Pt resides with 2 foster/ adopted children You at [facility] who are 13yo and [address] [facility]. He stated both of them will be able to assist as needed. M2 PT-IP Current Condition Start: 02/23/20 09:13 Freq: NEEDED Status: Active Protocol: Document 02/23/20 12:30 HH (Rec: 02/23/20 12:54 [id number]) Physical Therapy Current Condition Current Condition Evaluation Date 02/23/20 Treatment Diagnosis Genital pain, UTI, anemia, generalized weakness Onset Date few days ago Weight Bearing Status Weight Bearing Status Full Weight Bearing M3 PT-IP Subjective Start: 02/23/20 09:13 Freq: NEEDED Status: Active Protocol: Document 02/23/20 12:30 HH (Rec: 02/23/20 12:54 [id number]) Subjective Physical Therapy Visit Type Type Initial Evaluation Visit Start Time 11:00 Visit Stop Time 11:25 Total Visit Minutes 25 Notes Pt received 2 PRBC at ER yesterday. RCB =2.91 L, Hgb = 8.4L, HCT = 25.6L this morning . Proceed to therapy after consulting with RN d/t DC order. Number of ARMOR RECONNAISSANCE SPECIALIST Visits 0 Physical Therapy Visit Comments Patient Comments I feel better today but i am still feeling weak Patient Goals To return home with his children. Therapy Pain Assessment Pain Present Pain Present Denied Pain M4 PT-IP Mobility and Gait Start: 02/23/20 09:13 Freq: NEEDED Status: Active Protocol: Document 02/23/20 12:30 HH (Rec: 02/23/20 12:54 HH [id number]) PT-Bed Mobility Assessment Rolling Type of Rolling Roll to Right Level of Assist Standby Assistance Supine to Sit Supine to Sit Contact Guard Assistance, Bedrails Sit to Supine Sit to Supine Contact Guard Assistance, Bedrails Scooting Scooting to Edge of Bed Standby Assistance PT-Transfer Assessment Sit to and From Stand Sit to and from Stand Standby Assistance,Use of Upper Extremities Equipment Transfer Assistive Device Gait Belt,Front Wheeled Walker Orthotic/Prosthetic Devices or Brace: No Transfers Transfer Destination Bed Transfer Technique Stand Step Pivot Transfer Ability Level of Assist Contact Guard Assistance,Use of Upper Extremities Comments Mobility Comments Pt was in bed upon PT arrival. Denies any discomfort or pain but weakness. He agreed to mobilize with PT. Pt completed rolling to red side SBA but needed to use bed rail for push off from sidelying to sit at EOB on R side. He then stood up with FWW CGA and c/o dizziness and generalized weakness. He then proceeded to amb around the room and symptoms subsided. He amb from his room to [facility] and returned to bed. Pt did c/o ongoing weakness and his stamina slowly declining as amb distance increases. He was able to attempt ambulating without FWW but appeared to be wobbly with increased ray and requested to cont use FWW for mobility. He reported of fatigue towards the last 50 feet and requested to return to bed for rest. He denied any dizziness / lightheadedness. Pt resting comfortably in bed and notifeid CHRISTIANO Nicholas regarding his performance and recommended 1PA for mobility. Bed alarm activated and call ligth placed within reach. Gait Assessment Gait Gait Assistance Required: Contact Guard Assist Distance (Feet) 240 Able to Maintain Weight Bearing Status Yes During Gait Assistive Devices Assistive Device Gait Belt,Front Wheeled Walker Orthotic/Prosthetic Devices or Brace: No Gait Deviations General Gait Pattern Decreased Stride Length, Decreased Feet Clearance Factors Limiting Gait Function Factors Limiting Gait Function Decreased Activity Tolerance, Decreased Strength,Poor Balance,Poor Safety Awareness Comments Gait Comments See mobility comments. Stair Climbing Assessment Comments Stair Climbing Comments unable to assess d/t weakness. PT-Balance Assessment Sitting Balance and Reactions Static Sitting Balance Ability Normal Dynamic Sitting Balance Ability Normal Standing Balance and Reactions Static Standing Balance Ability Normal Dynamic Standing Balance Ability Good Device Used fww M5 PT-IP Objective Assessments Start: 02/23/20 09:13 Freq: NEEDED Status: Active Protocol: Document 02/23/20 12:30 HH (Rec: 02/23/20 12:54 [id number]) Orientation Orientation/Cognition Level of Alertness Alert Orientation Name,Age,Birthday,Month,Date, Year,Day of Week,Place Language Function Ability No Deficits Noted Safety Awareness Decreased Safety Awareness Memory Description No Deficits Noted Gross Range of Motion Upper Extremity ROM Impairments Pt is Ax O x 3 and he is unable to recall why was his catheter removed at home. Lower Extremity ROM Assessment Within Functional Limits Strength Upper Extremity Strength Assessment Within Functional Limits Lower Extremity Strength Assessment Within Functional Limits Coordination Assessment Gross Coordination Gross Coordination WNL Sensation Assessment Sensation Gross Sensation WNL Muscle Tone Muscle Tone WNL Yes M6 PT-IP Treatment Start: 02/23/20 09:13 Freq: NEEDED Status: Active Protocol: Document 02/23/20 12:30 HH (Rec: 02/23/20 12:54 [id number]) Physical Therapy Treatment Education Education Provided Safety M7 PT-IP Assessment and Plan Start: 02/23/20 09:13 Freq: NEEDED Status: Active Protocol: Document 02/23/20 12:30 HH (Rec: 02/23/20 12:54 [id number]) PT Summary Assessment and Plan Potential Rehabilitation Potential Excellent Status of Condition at Evaluation Stable Summary Impairments ROM,Strength,Balance,Bed Mobility,Transfers,Gait, Activity Tolerance Assessment Summary This is a low complexity evaluation for this 69 yo male admitted to hospital d/t genital pain, UTI and acute anemia. Pt seems to have improved mental status AxO x 3 but unable to recall situation why was his catheter removed at home. He was able to provide social hx today. PLOF: pt has 12 ISAI with L rail at home who was independent for all mobiltiy without using AD, and also a CG for his 2foster/ adopted 13yo and 17yo children. CLOF: pt needed to use FWW for mobility and able to assess stair mobility d/t c/o weakness. He was unsteady while attempting ambulating without FWW. Pt at this point is unsafe to be d/c home d/t ongoing weakness and poor stamina. Recommended nurse and SW it will be beneficial for pt to stay one more night for cont observation. Pt most likely will need home health since he mostly stays and need care for catheter management. Will cont monitor pt's progress tomorrow. Goals Bed Mobility Goal Independent Transfer Goal Independent,Cane,Front Wheeled Walker Gait Goal Independent,Cane,Front Wheel Walker Gait Distance 500 Other Goals 12 steps with L rail SBA Days to Meet Goals 3 Frequency of Treatment Frequency Of Treatment Once a Day Treatment Plan Physical Therapy Treatment Plan Bed Mobility Training,Transfer Training,Gait Training, Therapeutic Exercise,Balance Retraining,Discharge Planning Other Recommendations and Next Treatment check vitals Focus stair climbing mobility Recommendations To Nursing Amount of Assist Needed 1 Person Assist Discharge Recommendations PT Discharge Recommendations Home,Home Health Equipment Needed for Home Before Pt does not ahve a walker. FWW Discharge if he cont to have weakness. pt plans to call someone for a ride home now and if he cannot secure a ride then pt plans to take [employer] to [place] to get home Transportation Needs at Discharge Private Vehicle
[2020-02-23 14:41] LABS: Procalcitonin 0.44 ng/mL (<0.5)
[2020-02-23 15:07] LABS: Adenovirus Not Detected (Not Detect); Bordetella pertussis Not Detected (Not Detect); Chlamydophila pneumoniae Not Detected (Not Detect); Coronavirus 229E Not Detected (Not Detect); Coronavirus HKU1 Not Detected (Not Detect); Coronavirus NL 63 Not Detected (Not Detect); Coronavirus OC43 Not Detected (Not Detect); Human Metapneumovirus Not Detected (Not Detect); Human Rhinovirus/Enterovirus Not Detected (Not Detect); Influenza A Not Detected (Not Detect); Influenza B Not Detected (Not Detect); Mycoplasma pneumoniae Not Detected (Not Detect); Parainfluenza Virus 1 Not Detected (Not Detect); Parainfluenza Virus 2 Not Detected (Not Detect); Parainfluenza Virus 3 Not Detected (Not Detect); Parainfluenza Virus 4 Not Detected (Not Detect); Respiratory Syncytial Virus Not Detected (Not Detect)
[2020-02-23] MEDS: ACETAMINOPHEN 325 MG TABLET 650 MG PO (16:58)
--- NOTE | 2020-02-23 22:04 | PC.NURSE ---
pt ate 50% of his meal, pt still feeling weak. bed mobility is 1PA now. del cid had 325cc out, clear eulalia. encouraged pt drink more fluids. pt had a head ache, administered tylenol. Pt had a low grade temp 100.8, removed blanket and temp went down to 98.3. bed alarm active. droplet precautions. call light in reach.
[2020-02-24] VITALS (7 sets, daily range): BP systolic 115–133; BP diastolic 57–81; PULSE 75–94; RESP 16–18; TEMP 36.9–37.5; O2SAT 96–100
--- NOTE | 2020-02-24 01:59 | PC.NURSE ---
Patient is oriented to self, birthdate and place; states he is embarassed he cannot remember the date, age or why he is in the hospital. Breath sounds. Breath sounds CTA with RA sat of 96%. HRR. Denies nausea. BT present and abdomen is soft but has not had a BM since 02/18; provided prune juice. Indwelling catheter is patent; urine is bright yellow. Is able to turn himself in bed. Denies pain. Wearing bilateral calf SCD's. Has been running intermittent low grade temp; currently 99.1 orally. Denies cough, sore throat or SOB. Is currently on isolation (droplet/contact) while being ruled out for COVID-19. Fall risk score is high and bed alarm is activated.
[2020-02-24 06:24] LABS: Add Manual Diff / Slide Review NO; Basophils Absolute Auto 100 /uL (0-100); Basophils Percent Auto 1.7 % (0-2); Eosinophils Absolute Auto 0 /uL (0-450); Eosinophils Percent Auto 0.9 % (2-4); Hematocrit 26.7 % (41-53); Hemoglobin 8.9 g/dL (13.5-17.5); Lymphocytes Absolute Auto 800 /uL (1100-4500); Lymphocytes Percent Auto 26.1 % (25-40); Mean Corpuscular HGB Conc 33.2 % (30-36); Mean Corpuscular Hemoglobin 29.1 PG (26-34); Mean Corpuscular Volume 87.6 fL (80-100); Monocytes Absolute Auto 200 /uL (0-900); Monocytes Percent Auto 5.7 % (3-14); Neutrophils Absolute Auto 2100 /uL (1500-7000); Neutrophils Percent Auto 65.6 % (50-75); Platelet Count 125 X10^3/uL (150-400); Red Blood Cell Count 3.04 X10^6/uL (4.5-5.9); Red Cell Distribution Width 24.6 % (11.6-14.8); White Blood Cell Count 3.1 X10^3/uL (4.5-11.0)
[2020-02-24 06:33] LABS: BUN Creatinine Ratio 25.9 (6-22); Blood Urea Nitrogen 21 mg/dL (9-20); Calcium 8.4 mg/dL (8.4-10.2); Carbon Dioxide 23 mmol/L (22-32); Chloride 105 mmol/L (98-107); Estimated Glomerular Filt Rate > 60.0 mL/min (>60); Glucose 90 mg/dL (80-110); HEMOLYSIS < 15 (0-50); Potassium 4.5 mmol/L (3.4-5.1); Sodium 133 mmol/L (137-145)
[2020-02-24 06:41] LABS: Anisocytosis 3+
[2020-02-24 06:42] LABS: Target Cells 1+
[2020-02-24 09:35] LABS: COVID19 Sendout NOT DETECTED
[2020-02-24] MEDS: DOCUSATE 100 MG CAPSULE PO (09:52)
[2020-02-24] MEDS: SODIUM CHLORIDE 0.9% FLUSH 10 ML IV (09:56)
[2020-02-24] MEDS: BISACODYL 10 MG SUPP PR (12:30)
--- NOTE | 2020-02-24 12:32 | PT.IPTN ---
Physical Therapy Treatment Note M2 PT-IP Current Condition Start: 02/23/20 09:13 Freq: NEEDED Status: Active Protocol: Document 02/23/20 12:30 HH (Rec: 02/23/20 12:54 HH [id number]) Physical Therapy Current Condition Current Condition Evaluation Date 02/23/20 Treatment Diagnosis Genital pain, UTI, anemia, generalized weakness Onset Date few days ago Weight Bearing Status Weight Bearing Status Full Weight Bearing M3 PT-IP Subjective Start: 02/23/20 09:13 Freq: NEEDED Status: Active Protocol: Document 02/24/20 11:45 SP (Rec: 02/24/20 14:39 SP [email or web address]) Subjective Physical Therapy Visit Type Type Treatment Note Visit Start Time 11:45 Visit Stop Time 12:32 Total Visit Minutes 47 Notes RBC= 3.04 L, Hgb= 8.9L, HCT= 26.7 L Number of AUTOMATIC LINE SET UP MECHANIC Visits 1 Physical Therapy Visit Comments Patient Comments I feel better but still feel weak. Pt willing to work with PT. Patient Goals Wants to return home with his 2 children he has taken in and takes care of. Pt stated doesn't know if has a FWW, would have to look and doesn't think his children will know what it looks like and wouldn' t be able to check. Therapy Pain Assessment Pain Present Pain Present Denied Pain M4 PT-IP Mobility and Gait Start: 02/23/20 09:13 Freq: NEEDED Status: Active Protocol: Document 02/24/20 11:45 SP (Rec: 02/24/20 14:39 SP [id number]) PT-Bed Mobility Assessment Rolling Level of Assist Independent Supine to Sit Supine to Sit Standby Assistance Sit to Supine Sit to Supine Standby Assistance Scooting Scooting to Edge of Bed Standby Assistance Scooting Up and Down in Bed Standby Assistance PT-Transfer Assessment Sit to and From Stand Sit to and from Stand Standby Assistance,Use of Upper Extremities Equipment Transfer Assistive Device Gait Belt,Front Wheeled Walker Orthotic/Prosthetic Devices or Brace: No Transfers Transfer Destination Bed,Chair Transfer Technique Pt ambulated usign FWW around end of bed x2 and step pivot bed to chair. Transfer Ability Level of Assist Contact Guard Assistance,Use of Upper Extremities Comments Mobility Comments Pt was laying in bed when arrived. Pt stated feels pretty weak but wanting to go for a walk and try the stairs when asked. Pt reported dizziness post supine to sitting at EOB and worse when came to standing using FWW for support, CGA for safety. BPs taken sitting 100/78 initially after 1 min sitting, standing 72/44 after 1 min then requested needed to sit at EOB due to dizziness worsening. Retaken after 2 min 122/52 but still little dizzy . Pt stated wanted to attempt walking around in room, complete around end of bed to other side approx 10 ft using FWW CGA with report of continued little more dizziness when got to EOB and unable to stay in standing secondary to legs feeling weak , BP taken in sitting 107/63 and attempted second trial walk around EOB and stand BP and again unable to get standign BP secondary to leg weak and increased dizziness BP 100/68 and requested wanting to lay down don't feel well. AUTOMATIC LINE SET UP MECHANIC noted no chair in room and so had one placed at bed side for use time out of bed at end of tx if tolerated and BP and no dizziness reported, successful . Pt required cuing for sequencing where to transfer bed to chair and use of FWW for support, confused and didn 't know what the catheter was but did state does have retention issues. Pt stated how do I get there when asked to go over to the chair at the end of the tx, AUTOMATIC LINE SET UP MECHANIC stated need to stand up and walk over to the chair using FWW. Pt stated oh, ok. CGA provided for safety,stable usign FWW, AUTOMATIC LINE SET UP MECHANIC managed catheter on FWW durign transfer and gait. AUTOMATIC LINE SET UP MECHANIC donned chair alarm and call light and all needs in reach including provided lunch. AUTOMATIC LINE SET UP MECHANIC discussed with nursing, hospitalist and evaluating PT responses to treatment and patient not ready to go home. AUTOMATIC LINE SET UP MECHANIC recommends that nursing staff continue to assess BP in sitting and standing and if stable to assist short gait in room using FWW at this time. Therapy will reassess him again tomorrow if stable vitals gait longer distances and stair mgt. PT, AUTOMATIC LINE SET UP MECHANIC, DC case mgt and hospitalist agree unsure home situation and if would have support needed to return safely. AUTOMATIC LINE SET UP MECHANIC recommending patient would benefit from further acute PT treatments and if able could increase to 2x day upon tomorrow's assessment and possible SNF recommendation for further strengthening and safety education during transfers and ambulation currently requiring FWW for support. Gait Assessment Gait Gait Assistance Required: Contact Guard Assist Distance (Feet) 10 Able to Maintain Weight Bearing Status Yes During Gait Assistive Devices Assistive Device Gait Belt,Front Wheeled Walker Orthotic/Prosthetic Devices or Brace: No Gait Deviations General Gait Pattern Decreased Stride Length, Decreased Feet Clearance Factors Limiting Gait Function Factors Limiting Gait Function Decreased Activity Tolerance, Decreased Strength,Poor Balance,Poor Safety Awareness Comments Gait Comments See mobility comments. Stair Climbing Assessment Comments Stair Climbing Comments unable to assess secondary to orthostatic BP in standing and weakness. PT-Balance Assessment Sitting Balance and Reactions Static Sitting Balance Ability Good Dynamic Sitting Balance Ability Fair Standing Balance and Reactions Static Standing Balance Ability Fair Dynamic Standing Balance Ability Poor Device Used fww M5 PT-IP Objective Assessments Start: 02/23/20 09:13 Freq: NEEDED Status: Active Protocol: Document 02/23/20 12:30 HH (Rec: 02/23/20 12:54 HH [id number]) Orientation Orientation/Cognition Level of Alertness Alert Orientation Name,Age,Birthday,Month,Date, Year,Day of Week,Place Language Function Ability No Deficits Noted Safety Awareness Decreased Safety Awareness Memory Description No Deficits Noted Gross Range of Motion Upper Extremity ROM Impairments Pt is Ax O x 3 and he is unable to recall why was his catheter removed at home. Lower Extremity ROM Assessment Within Functional Limits Strength Upper Extremity Strength Assessment Within Functional Limits Lower Extremity Strength Assessment Within Functional Limits Coordination Assessment Gross Coordination Gross Coordination WNL Sensation Assessment Sensation Gross Sensation WNL Muscle Tone Muscle Tone WNL Yes M6 PT-IP Treatment Start: 02/23/20 09:13 Freq: NEEDED Status: Active Protocol: Document 02/24/20 11:45 SP (Rec: 02/24/20 14:39 SP [email or web address]) Physical Therapy Treatment Education Education Provided Precautions,Safety M7 PT-IP Assessment and Plan Start: 02/23/20 09:13 Freq: NEEDED Status: Active Protocol: Document 02/24/20 11:45 SP (Rec: 02/24/20 14:39 SP [id number]) PT Summary Assessment and Plan Potential Rehabilitation Potential Excellent Status of Condition at Evaluation Stable Summary Impairments ROM,Strength,Balance,Bed Mobility,Transfers,Gait, Activity Tolerance Assessment Summary Pt is being seen inpatient PT d/t genital pain, UTI and acute anemia. See mobililty comments. I rolling, SBA bed mobility with reports of dizziness durign change of positions orthotatic, see vitals taken. CGA throughout all mobility using FWW. AUTOMATIC LINE SET UP MECHANIC recommending continued acute PT at this time until stable vitals. Nursing staff continue check ortho vitals. If improves increase PT to 2x day and assess further distance gait and stairs. At this time recommending SNF for further improvement in strength and balance with LRAD and safety techniques, catheter mgt training if is to return home with prior to DC. Unsure if the support has at home at this time, consider him to be ableto be independent for safe DC if improves to return home . Goals Bed Mobility Goal Independent Transfer Goal Independent,Cane,Front Wheeled Walker Gait Goal Independent,Cane,Front Wheel Walker Gait Distance 500 Other Goals 12 steps with L rail SBA Days to Meet Goals 3 Frequency of Treatment Frequency Of Treatment Once a Day Treatment Plan Physical Therapy Treatment Plan Bed Mobility Training,Transfer Training,Gait Training, Therapeutic Exercise,Balance Retraining,Discharge Planning Other Recommendations and Next Treatment check vitals Focus stair climbing mobility Recommendations To Nursing Amount of Assist Needed Standby Assistance Discharge Recommendations PT Discharge Recommendations SNF Rehab Other Discharge Recommendations SNF Rehab at this time unless improves then HH. Equipment Needed for Home Before Pt does not have a walker. FWW Discharge if he cont to have weakness. pt plans to call someone for a ride home now and if he cannot secure a ride then pt plans to take [employer] to [employer] [place] to get home Transportation Needs at Discharge Private Vehicle
--- NOTE | 2020-02-24 14:39 | DI.CT.S_ITS ---
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 5 mm coronal and sagittal reformats were performed, with additional 7 mm coronal MIP reformats through the lungs. For radiation dose reduction, the following was used: automated exposure control, adjustment of mA and/or kV according to patient size. COMPARISON: [facility], CT, CT CHEST ABD PEL W CON, 02/22/2020, 0:40. FINDINGS: Image quality: Excellent. CHEST: Lungs and pleura: No acute airspace opacities. No pleural effusions or pneumothorax. Central and peripheral airways appear patent and normal in caliber. Mediastinum: Heart size is normal. No pericardial effusion. No mediastinal or hilar adenopathy by size criteria. Thoracic aorta and central pulmonary arteries are normal in size. Esophagus is normal in caliber. No hiatal hernia. Chest wall: No axillary or supraclavicular adenopathy by size criteria. Thyroid gland is unremarkable. ABDOMEN: Solid organs: Liver is normal in size and enhancement. Gallbladder is unremarkable. Biliary system is non dilated. Pancreas enhances normally. Spleen is small in size consistent with prior partial resection. No adrenal nodules. Left kidney has been removed. Right kidney demonstrates unchanged nonobstructing inferior pole calcifications. The previously identified heterogeneously enhancing mass within the left renal fossa containing areas of low attenuation predominantly within the central portion is unchanged in size. Peritoneum and bowel: Bowel loops demonstrate normal wall thickness and caliber. No free fluid or air. Nodes and vessels: No retroperitoneal or mesenteric adenopathy by size criteria. Aorta and inferior vena cava are normal in size. Miscellaneous: No ventral hernias. PELVIS: Genitourinary: Bladder is poorly evaluated secondary to incomplete distention and presence of a Anaya catheter. Miscellaneous: No inguinal hernias or adenopathy. Lipoma within the left hip musculature is unchanged. Penile prosthesis is noted. Prostate gland is enlarged. Bones: Unchanged sclerosis within the posterior left iliac bone, overall indeterminate.. No vertebral body compression fractures. IMPRESSION: 1. Stable interval exam demonstrating unchanged appearance of heterogeneous mass within the left renal fossa. 2. Nonobstructing right renal calculi. 3. Limited evaluation of the bladder secondary to incomplete distention present a Anaya catheter. Dictated by: Verenice Her M.D. on 02/24/2020 at 15:04 Approved by: Verenice Her M.D. on 02/24/2020 at 15:14
--- NOTE | 2020-02-24 15:32 | P.PN_ITS ---
Subjective Subjective Date Patient Seen: 02/24/20 Time Patient Seen: 15:35 Interval history: Mr. 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 He was noted to be profoundly weak from his baseline yesterday with physical therapy. Repeat evaluation today showed the patient was profoundly orthostatic, dropping in to the 70 systolic upon standing. He will be given a bolus of IV fluids And he remains profoundly weak and unable to do stairs today. After fluid bolus today and hopefully adequate p.o. intake will re-evaluate with physical therapy onur orrow. He only complains of weakness today, and denies any shortness of breath or chest pain. He has had no cough. He does not realize that he has been febrile. He may potentially need medications for orthostatic hypotension, however this is unclear at this time. his last fever was yesterday evening as well, and patient seems to be somewhat improving on antibiotics for presumed urinary tract infection. His oncology clinic also called today and asked for a Repeat CT chest abdomen pelvis with contrast which was performed to further evaluate his sarcoma. Exam Vital Signs (past 8 hours): - 02/24/20 08:00 Temperature 98.5 F Pulse Rate 75 Respiratory Rate 16 Blood Pressure 115/57 L Pulse Oximetry 97 Oxygen Delivery Method Room Air Oxygen Flow Rate 0 Narrative Exam Narrative: GENERAL APPEARANCE: Well developed, well nourished, in no acute distress. SKIN: Inspection of the skin reveals no rashes, ulcerations or petechiae. HEENT: Normocephalic atraumatic, extraocular muscles are intact, oropharynx is clear and mucous membranes are moist, neck is supple without adenopathy NECK: Supple and symmetric. There was no thyroid enlargement, and no tenderness, or masses were felt. CHEST: Normal AP diameter and normal contour without any kyphoscoliosis. LUNGS: Auscultation of the lungs revealed no wheezes, rhonchi, or rales. CARDIOVASCULAR: There was a regular rate and rhythm without any murmurs, gallops, rubs. Peripheral pulses were 2+ and symmetric. ABDOMEN: Soft and nontender, non distended. MUSCULOSKELETAL: There was no tenderness or effusions noted. Muscle strength and tone were normal. EXTREMITIES: No cyanosis, clubbing or edema. NEUROLOGIC: Alert and oriented x 3. Morris but cooperative and agreeable. Profound weakness. Objective Labs Result Diagrams: 02/24/20 06:00 02/24/20 06:00 Labs: Laboratory Results - last 24 hr 02/23/20 02/24/20 02/24/20 12:45 06:00 06:00 WBC 3.1 L D RBC 3.04 L Hgb 8.9 L Hct 26.7 L MCV 87.6 MCH 29.1 MCHC 33.2 RDW 24.6 H Plt Count 125 L Neut % (Auto) 65.6 D Lymph % (Auto) 26.1 [place] % (Auto) 5.7 Eos % (Auto) 0.9 L Baso % (Auto) 1.7 Neut # (Auto) 2100 Lymph # (Auto) 800 L [place] # (Auto) 200 Eos # (Auto) 0 Baso # (Auto) 100 RBC Morphology See below Anisocytosis 3+ H Target Cells 1+ H Sodium 133 L Potassium 4.5 Chloride 105 Carbon Dioxide 23 BUN 21 H Creatinine 0.81 Estimated GFR > 60.0 BUN/Creatinine Ratio 25.9 H Glucose 90 Calcium 8.4 COVID-19 PCR Not detected Assessment & Plan Assessment & Plan narrative: Davin Alvarez is a 69-year-old gentleman with a 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 He is still profoundly weak, possibly acutely from his severe anemia or urinary tract infection but this is most likely multifactorial given his history of malignancy, UTI, and anemia. 1. orthostatic hypotension, active, acute - patient with systolic blood pressures that dropped into the 70s when standing today. He will be given some IV fluids to try and help. He is encouraged To increase his p.o. intake. This may be in the setting of his severe anemia, Or urinary tract infection but is likely multifactorial. He still has had some fever as well pointing to the possibility of active infection. - consider midodrine therapy if not responsive to fluid boluses and does not improve with interventions for acute cystitis. - Continue physical therapy 2. Acute cystitis, likely present on admission - patient was having difficulty voiding, and did have an elevated temperature for which no other source has been found. covid 19 testing was sent and negative. - Will treat as acute cystitis Despite negative UA given presentation and continue therapy with ceftriaxone given fever, now orthostatic hypotension, and weakness. - his fever curve is improving 3. anemia, acute, present on admission, improved - patient with hemoglobin of 6.9 on admission requiring 2 units PRBCs transfu partha. His H&H remained stable today. Current hemoglobin is 8.9. - source is unclear but eliquis has been discontinued. Resume possibly as an outpatient. 4.Liposarcoma of the retroperitoneum - will obtain repeat CT evaluation today as requested by his oncology group. 5.History of chronic DVT -Eliquis is held due to acute blood loss 6. BPH with acute retention - s/p del cid catheter placement. - continue treatment as noted above for acute cystitis - no BPH medications given orthostatic syncope 7. Constipation - continue oral bowel regimen, still no bowel movements today. - will trial suppository today to assist with bowel function. FEN: saline lock but will give fluid bolus today. regular diet VTE prophylaxis: Bilateral SCDs Dispo: anticipate discharge home in the next 24-48 hours pending orthostatic blood pressures and PT evaluations. patient is not currently able to climb stairs at this time. He may need to discharge to acute rehab but I do not think he would be agreeable to this. Code Status: Full code Quality VTE Deep Vein Thrombosis/Pulmonary Embolism Present on Admission: No
--- NOTE | 2020-02-24 15:44 | PC.NURSE ---
Patient sat up in chair today for lunch, reports not having a great appetite, but tried to eat. Denies pain, does state he feels weak after laying in bed for too long. Denies shortness of breath, cough, fever, n/v. States it was several days since his last BM (says possibly up to 8 days but he is not sure?). Suppository given as ordered and patient had several bowel movements afterwards. Anaya remain in place and attached, draining dark yellow urine. Denies abdominal or pelvic pain. Patient went down for his CT scan, results pending. Bed alarm on for safety, call light within reach.
[2020-02-24] MEDS: CEFTRIAXONE 1 GM/50 ML FROZ.PIGGY IV (16:05)
[2020-02-24] MEDS: SODIUM CHLORIDE 0.9% 1,000 ML 1000 ML IV (16:06)
--- NOTE | 2020-02-25 01:11 | PC.NURSE ---
Addendum entered by Rosie Roa R.N. 02/25/20 01:33: Pt BP @ 0000 133/77, 89. Denies dizziness or lightheadedness. Addendum entered by Rosie Roa R.N. 02/25/20 01:31: Pt reports having BM 02/24/20. Original Note: 0030- Pt lying in bed, reports comfortable. A/O x4, 97% RA, LS clear, denies SOB. RAC SL, Rt chest port with gauze drsg CDI. PP+ BT+, denies nausea. Reports feeling better from receiving blood transfusion, but they do make me a little bit scared each time I get one. Anaya patent and draining clear yellow urine to gravity. Calf SCD's on, call light in reach, and bed alarm on for safety.
[2020-02-25 08:03] VITALS: O2SAT 96
[2020-02-25 08:39] VITALS: BP 119/55; PULSE 83; RESP 18; TEMP 36.3; O2SAT 98
[2020-02-25 08:40] VITALS: BP 101/71; BP 119/55; BP 74/58; PULSE 111; PULSE 125; PULSE 83
[2020-02-25] MEDS: DOCUSATE 100 MG CAPSULE PO (09:14)
[2020-02-25] MEDS: SODIUM CHLORIDE 0.9% FLUSH 10 ML IV (09:14)
--- NOTE | 2020-02-25 12:31 | PM.DS.1 ---
History of Present Illness History of Present Illness Date Patient Seen: 02/25/20 Time Patient Seen: 12:31 Chief complaint: Genital Pain Narrative: As per FELICIA Shaw: Patient is a difficult and vague historian. He is undergoing treatment for a retroperitoneal liposarcoma. He does not appear to have a primary care physician but sees , oncology, as well as receiving care from [facility] in [facility]. The patient came in with a complaint of urinary retention which appears to have been a several-day problem necessitating a visit to the ED over the last several days, where they inserted a Del Cid catheter. He returned today and his Del Cid catheter was out. It is unclear as to how the Del Cid was removed, the ED provider thought that 1 of the patient's housemates may have removed it or a portion of it. 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 Other than be cold, the patient denies sweats or chills, difficulty breathing, chest pain, nausea or vomiting, he does endorse having vague neurological symptoms associated with spinal surgery he had a number of years ago. He also endorses urinary retention and small bowel movements. The patient has had a history of clots and is on Eliquis and he has been taking 5 mg twice a day. In the emergency department he was found to have a hemoglobin and hematocrit of 6 and 21 and was started on 2 units PRBC and the ED requested admission. Per the ED provider's summary, Initial diagnosis of retroperitoneal sarcoma in 2012 and in 2013 [facility] performed resection of left retroperitoneal mass with left nephrectomy, adrenalectomy and partial colectomy. He had a recurrence in 2014 and the [facility] resected a left upper quadrant mass. In 2016 there was another recurrence and [facility] again resected a large left upper quadrant mass including splenectomy. Patient subsequently developed massive intraoperative hemorrhage and eventually had his care transferred to [facility] in [place]. 2019, another recurrence was noted by a mass in the bed of his prior left nephrectomy. Patient was started on gemcitabine and docetaxel chemotherapy on December 10, 2019 most recent imaging from 01/13/2020 notes a stable dominant mass in the left retroperitoneum measuring 12 x 12 cm with increasing central necrosis. Plan is for ongoing paliative chemotherapy with scheduled CT Chest/Abd/Pelvis and discussion with his oncologist in [facility]. In August 2019, he was admitted and treated for a spinal abscess. The abscess was surgically removed and the patient was treated with IV zosyn and eventually discharged. Discharge Providers Provider Date of admission: 02/22/20 02:39 Discharge Date: 02/25/20 Consults: 02/21/20 22:58 Consult to GRINDING MACHINE OPERATOR [employer]OMATIC - Rock Worker Stat Comment: GRINDING MACHINE OPERATOR [employer]IC Consult: Community [facility] Res Need 02/22/20 03:30 Consult to Discharge Planning Routine Comment: Food insecurity, home safety 02/22/20 04:08 Consult to Physician Routine Comment: Consulting Provider: Alysha Dangelo Reason for consultation: Retroperonteal liposarcoma patient admitted for severe anemia Has provider been notified: Yes 02/23/20 08:29 Consult to Physical Therapy Evaluate & Treat Comment: FWW for home use Physician Instructions: Evaluate and Treat 02/23/20 10:38 Consult to Home Health Routine Comment: Severe anemia, del cid cath, UTI Reason For Exam: Set up HH RN/PT for d/c today 02/23/20 02/25/20 12:14 Consult to Physical Therapy Evaluate & Treat Comment: Physician Instructions: Evaluate and Treat 02/25/20 12:15 Consult to Physical Therapy Evaluate & Treat Comment: FWW for home use Physician Instructions: Evaluate and Treat Discharge provider: Cipriano Cruz DO Summary Hospital Course Discharge Diagnosis: Please see hospital course by problem list noted below. 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 He was profoundly weak on admission but improved with small amount of IVF and antibiotics. He was still orthostatic on discharge, but relatively asymptomatic and was able to navigate stairs upon discharge. He was discharged with a walker at the recommendation of PT. 1. orthostatic hypotension, active, acute - patient with systolic blood pressures that dropped into the 70s when standing. He was given fluid boluses and continued on antibiotics as noted below. He remained orthostatic but improved symptomatically and was cleared for discharge home. 2. Acute cystitis, likely present on admission - patient was having difficulty voiding with urinary retention on admission, and did have an elevated temperature for which no other source was found. covid 19 testing was sent and negative. - Will treat as acute cystitis Despite negative UA patient continued to improve with ceftriaxone and will complete a total 7 day course with oral cefdinir as an outpatient. He was afebrile upon discharge. 3. anemia, acute, present on admission, improved - patient with hemoglobin of 6.9 on admission requiring 2 units PRBCs transfusion. His H&H remained stable. Current hemoglobin is 8.9. - source is unclear but eliquis has been discontinued. Resume possibly as an outpatient. 4. Liposarcoma of the retroperitoneum - repeat CT evaluation performed at the request of his oncology group. He will follow up with his oncologist as previously scheduled. 5.History of chronic DVT -Eliquis is held due to acute blood loss. Possibly to resume as an outpatient as noted above. 6. BPH with acute retention - s/p del cid catheter placement. - continue treatment as noted above for acute cystitis - no BPH medications given orthostatic syncope - discharged home with a leg bag, will need urology follow up as an outpatient. 7. Constipation, resolved - patient had not had a bowel movement in 5 days prior to admission. Improved with rectal suppository. Bowel regimen recommended as an outpatient with OTC medications. Time Spent with Patient Time spent: Greater than 30 minutes Exam Vital Signs (past 8 hours): - 02/25/20 08:03 02/25/20 08:39 02/25/20 08:40 Temperature 97.3 F L Pulse Rate 83 Pulse Rate [Orthostatic Lying] 83 Pulse Rate [Orthostatic Sitting] 111 H Pulse Rate [Orthostatic Standing] 125 H Respiratory Rate 18 Blood Pressure 119/55 L Blood Pressure [Orthostatic Lying] 119/55 L Blood Pressure [Orthostatic Sitting] 101/71 Blood Pressure [Orthostatic Standing] 74/58 L Pulse Oximetry 96 98 Oxygen Delivery Method Room Air Oxygen Flow Rate 0 Narrative Exam Narrative: GENERAL APPEARANCE: Well developed, well nourished, in no acute distress. SKIN: Inspection of the skin reveals no rashes, ulcerations or petechiae. HEENT: Normocephalic atraumatic, extraocular muscles are intact, oropharynx is clear and mucous membranes are moist, neck is supple without adenopathy NECK: Supple and symmetric. There was no thyroid enlargement, and no tenderness, or masses were felt. CHEST: Normal AP diameter and normal contour without any kyphoscoliosis. LUNGS: Auscultation of the lungs revealed no wheezes, rhonchi, or rales. CARDIOVASCULAR: There was a regular rate and rhythm without any murmurs, gallops, rubs. Peripheral pulses were 2+ and symmetric. ABDOMEN: Soft and nontender, non distended. MUSCULOSKELETAL: There was no tenderness or effusions noted. Muscle strength and tone were normal. EXTREMITIES: No cyanosis, clubbing or edema. NEUROLOGIC: Alert and oriented x 3. Morris but cooperative and agreeable. Profound weakness. Objective Labs Result Diagrams: 02/24/20 06:00 02/24/20 06:00 Discharge Plan Discharge Plan Discharge comment: Patient was admitted to the hospital for weakness and severe anemia. Repeat CT was done for his oncologist. He also had fevers and though no source was found he improved with ceftriaxone. Given urinary retention suspect a urinary tract infection. Needs outpatient Urology evaluation for urinary retention. Antibiotics were sent to his pharmacy. He should stay adequately hydrated and stand slowly given orthostatic hypotension. Patient's eliquis was stopped due to anemia of 6.9, was stable upon discharge around 9 after 2U PRBC. Further evaluation for source recommended as an outpatient. Discharge orders & Medications Discharge Orders: Discharge (Order); Ordered 02/25/20 Ordered By: Cipriano Cruz Prescriptions: New cefdinir 300 mg capsule 300 mg PO BID 5 Days Qty: 10 RF: 0 Continued ondansetron HCl 8 mg tablet 8 mg PO TID PRN (Reason: Nausea) RF: 0 Discontinued Eliquis 5 mg tablet 5 mg PO BID RF: 0 sulfamethoxazole-trimethoprim [Bactrim DS] 800-160 mg tablet 1 tab PO BID Qty: 14 RF: 0 Follow up/Referrals: Gabriela Cooper MD [Non-Staff] - 03/04/20 10:45 am (appointment w/dr zora cooper @ [facility] saturdaymarch 04 check in at 10:45) Discharge Health Status Health Concerns: Urinary retention likely acute cystitis Acute anemia Multidrug resistant organism: No MDRO Diet/Activity/Treatments Diet: Diet as Tolerated Activity: As tolerated Catheter: 2-way Del Cid Catheter comment: Needs outpatient Urology evaluation re: catheter removal Skin/Wound/Dressing Care Report to your healthcare provider any signs of infection, such as:: chills, fever and increased pain Visit Report/Discharge Packet Instructions: How to Care for Your Del Cid Catheter -- Male, Tips on Coping With Anemia Related to Chemotherapy, Anemia, DI for Anemia of Chronic Disease, How to Prevent Falls, Cefdinir Discharges patient from system. Discharge Date/Time: 02/25/20 13:48 Quality VTE Deep Vein Thrombosis/Pulmonary Embolism Present on Admission: No
--- NOTE | 2020-02-25 12:48 | PT.IPTN ---
Physical Therapy Treatment Note M2 PT-IP Current Condition Start: 02/23/20 09:13 Freq: NEEDED Status: Active Protocol: Document 02/23/20 12:30 HH (Rec: 02/23/20 12:54 HH [id number]) Physical Therapy Current Condition Current Condition Evaluation Date 02/23/20 Treatment Diagnosis Genital pain, UTI, anemia, generalized weakness Onset Date few days ago Weight Bearing Status Weight Bearing Status Full Weight Bearing M3 PT-IP Subjective Start: 02/23/20 09:13 Freq: NEEDED Status: Active Protocol: Document 02/25/20 12:05 LJ (Rec: 02/25/20 12:48 LJ [id number]) Subjective Physical Therapy Visit Type Type Treatment Note Visit Start Time 12:05 Visit Stop Time 12:24 Total Visit Minutes 19 Notes pt on phone with son organizing details of DC. Number of BRIM FLEXER Visits 2 Physical Therapy Visit Comments Patient Comments Pt wants to go home today and is willing to trial stairs. Pt stated that his son has located a FWW at home and it is in good condition. He is refusing one from the hospital Therapy Pain Assessment Pain Present Pain Present Denied Pain M4 PT-IP Mobility and Gait Start: 02/23/20 09:13 Freq: NEEDED Status: Active Protocol: Document 02/25/20 12:05 LJ (Rec: 02/25/20 12:48 LJ [id number]) PT-Bed Mobility Assessment Rolling Level of Assist Independent Supine to Sit Supine to Sit Independent Sit to Supine Sit to Supine Independent Scooting Scooting to Edge of Bed Independent PT-Transfer Assessment Sit to and From Stand Sit to and from Stand Standby Assistance,Use of Upper Extremities Equipment Transfer Assistive Device Gait Belt,Front Wheeled Walker Orthotic/Prosthetic Devices or Brace: No Transfers Transfer Destination Bed Transfer Technique Pt ambulated usign FWW around end of bed x2 and step pivot bed to chair. Transfer Ability Level of Assist Standby Assistance,Use of Upper Extremities Comments Mobility Comments Pt in bed upon arrival. States he is feeling better and wants to go home today. He is independent with mobility and SBA with transfers due to moving Anaya. Gait Assessment Gait Gait Assistance Required: Standby Assistance Distance (Feet) 75 Able to Maintain Weight Bearing Status Yes During Gait Assistive Devices Assistive Device Gait Belt,Front Wheeled Walker Orthotic/Prosthetic Devices or Brace: No Gait Deviations General Gait Pattern Decreased Stride Length, Decreased Feet Clearance Factors Limiting Gait Function Factors Limiting Gait Function Decreased Activity Tolerance, Decreased Strength,Poor Balance,Poor Safety Awareness Comments Gait Comments Pt ambulated to WC outside of room to wheel to stair trial. SBA with assist for Anaya to attach to FWW. Pt had no c/o dizziness or lightheadedness. Pt steady during ambulation and appropriate with FWW management Stair Climbing Assessment Evaluation Level of Assist On Stairs Standby Assistance Devices Stair Climbing Assistive Devices Left Railing Technique/Endurance Stair Climbing Direction Ascend and Descend Stair Climbing Technique Step Over Step Number of Steps Climbed 3 Stair Climbing Set # Repetitions (reps) 3 Comments Stair Climbing Comments Pt steady with using stairs. Required cueing for which hand rail to use. M5 PT-IP Objective Assessments Start: 02/23/20 09:13 Freq: NEEDED Status: Active Protocol: Document 02/23/20 12:30 HH (Rec: 02/23/20 12:54 HH [id number]) Orientation Orientation/Cognition Level of Alertness Alert Orientation Name,Age,Birthday,Month,Date, Year,Day of Week,Place Language Function Ability No Deficits Noted Safety Awareness Decreased Safety Awareness Memory Description No Deficits Noted Gross Range of Motion Upper Extremity ROM Impairments Pt is Ax O x 3 and he is unable to recall why was his catheter removed at home. Lower Extremity ROM Assessment Within Functional Limits Strength Upper Extremity Strength Assessment Within Functional Limits Lower Extremity Strength Assessment Within Functional Limits Coordination Assessment Gross Coordination Gross Coordination WNL Sensation Assessment Sensation Gross Sensation WNL Muscle Tone Muscle Tone WNL Yes M6 PT-IP Treatment Start: 02/23/20 09:13 Freq: NEEDED Status: Active Protocol: Document 02/25/20 12:05 LJ (Rec: 02/25/20 12:48 [id number]) Physical Therapy Treatment Education Education Provided Safety M7 PT-IP Assessment and Plan Start: 02/23/20 09:13 Freq: NEEDED Status: Active Protocol: Document 02/25/20 12:05 LJ (Rec: 02/25/20 12:48 LJ [id number]) PT Summary Assessment and Plan Potential Rehabilitation Potential Excellent Status of Condition at Evaluation Stable Summary Impairments ROM,Strength,Balance,Bed Mobility,Transfers,Gait, Activity Tolerance Assessment Summary Pt is improved with mobility requiring SBA for stairs. He is tolerating more activity with gait distance. Pt has met goals for PT (other than 500' gait) and is ready to DC home with assistance Goals Bed Mobility Goal Independent Transfer Goal Independent,Cane,Front Wheeled Walker Gait Goal Independent,Cane,Front Wheel Walker Gait Distance 500 Other Goals 12 steps with L rail SBA Days to Meet Goals 3 Frequency of Treatment Frequency Of Treatment Once a Day Treatment Plan Physical Therapy Treatment Plan Bed Mobility Training,Transfer Training,Gait Training, Therapeutic Exercise,Balance Retraining,Discharge Planning Recommendations To Nursing Amount of Assist Needed Standby Assistance Discharge Recommendations PT Discharge Recommendations Home with Assistance Equipment Needed for Home Before Pt states his son found a FWW Discharge at the house Transportation Needs at Discharge Private Vehicle
--- NOTE | 2020-02-25 13:21 | PC.NURSE ---
Day shift: Pt left unit at approx 1320 via WC with REINA Holland. Pt being picked up by a friend. That friend is supposed to catch the 1300 boat off of [place]. Paperwork signed and all questions answered. Placed leg bag for Pt's Anaya and did teaching on that. Pt has all personal belongings. script sent electronic to Pt's pharmacy.
--- NOTE | 2020-02-25 13:24 | PT-IP ANOTE ---
Pt decided to get a FWW from hospital prior to DC
--- NOTE | 2020-02-25 14:38 | CM.DPNOTE ---
DCP Cont TC from Vick in the [facility] Case management Dept; stating patient was calling him asking to speak w/ a family welfare social work professor. Met w/patient throughout the day. This AM, pt admitted he felt fearful today. He had been trying to get a hold of someone at the cancer care center so that he would know if he had anymore infusions to do. Asked patient what the goal was for himself and he said to live my life. Pt admitted to fear of dying. He was hopeful to return home and stated I'm weak here, but I can be weak at home too. 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 This FINANCIAL BUSINESS ANALYST offered to connect w/ Oncology SWer Augusto Cardenas at the [facility], pt was delighted by this offer and wanted to know if he had additional chemo infusions scheduled ? Placed call to Augusto Cardenas P# [phone]; had lengthy conversation about patient. Augusto explained pt has much of his cancer care and follow up at [facility] in [place]; the ultimate goal in pt's treatment plan is to get surgical intervention at [facility]. He had just finished his chemo infusions and has none scheduled at this time. Augusto explains pt has shown great resilience and compliance throughout his struggle w/cancer and other medical complications. Augusto and staff at [facility] have witnessed numerous episodes of confusion, disorientation and at times, agitation, from patient, though he can often be redirected. uAgusto suggests this FINANCIAL BUSINESS ANALYST relay to patient that his next appt w/ Dr Dangelo is March 03 at approx 1000 and Care [facility] has been arranged to transport him from the [facility] to [facility]. Dr Dangelo aware of pt's current hospitalization Augusto suggests SNF for patient if he qualifies? This FINANCIAL BUSINESS ANALYST does not disagree SNF might better prepare pt for a return home and therapy team had recommended this yesterday. Returned to room to find pt had been DC home and had been cleared by therapy team for such; pt and CHRISTIANO Rios working on DC together, friend transporting pt home this afternoon. Pt agreeable to plan. Relayed summary of conversation w/ Augusto at [facility] and pt grateful. Pt remained agreeable to Pee DENNISON RN/PT/OT if available. P: DC home w/friend and 17 yo to assist as able, w/ FWW, via pov, Pee DENNISON notified and arranging f/u as long as PCP Kenneth able to follow (?) This FINANCIAL BUSINESS ANALYST will likely need to f/u w/Augusto Cardenas and Pee DENNISON tomorrow to discuss continuity of care MEHDI Faith
--- NOTE | 2020-02-26 12:14 | CM.DPC ---
DCP cont: Faxed discharge summary to [facility] at fax # [phone]. Fax confirmation scanned in. Nicolette Monique, Care Infantry Weapons Crewmember
--- NOTE | 2020-02-27 10:27 | CM.DPC ---
DCP Cont: Patient had called hospital, and mentioned, He had not been able to get out of bed. Patient had been here at the hospital, and was discharged home on 02-24 with [facility]. Patient also has a aids social worker at [facility], according to MEHDI Alicea's note, named Augusto Lynn. Patient has history of confusion and agitation at times. He was getting care from teenager, according to note. Left a message with Augusto Lynn, aids social worker, though, is unlikely that he is available on the week-end. Called [facility]. Spoke to Ebony, she stated, she is not familiar with the patient, but will email her staff and have someone call back. Will follow up later today if no response. P: Will follow up with [facility] today. Chayito Tucker RN/Client Professional
--- NOTE | 2020-02-28 10:25 | CM.DPC ---
DCP Cont: Had not heard yet from [facility]. Called them back, and spoke to Judy, who this dependency case manager had spoken to yesterday. She stated that she had not yet heard back from nursing, but would send out another e-mail. She has this case manger's phone number. Since patient is [facility], went ahead and called Consuelo Kim at [facility]. Her phone number is: [phone]. Left her a message regarding situation, and inquired if he is established at this office. In the message also indicated that patient called yesterday, stated that he needed additional assistance, and was wanting to know if patient had any benefits with home caregiving. Will await her call back, but will not hear from her until Saturday. P: [facility] will see if [facility] can provide any information today, and Saturday, if [place] has any resources. Chayito Tucker RN/Groover Operator
--- NOTE | 2020-02-29 15:16 | CM.DPNOTE ---
MT contact information: Return call from [facility] THALIA Cordero stating that pt is established with the [facility] SW Preeti Perry ([phone]) and she would be the contact center assistant for the pt if further services needed. Pt also connected with MEHDI Cardenas at [facility] for ongoing services and needs. MEHDI Butt
--- NOTE | 2020-03-02 10:07 | PC.NURSE ---
Late note for 03/01/20. Former Pt called to discuss concerns about not being able to get hold of anyone for follow up or treatment. Spoke with Pt twice during the course of the shift and told evening RN Coordinator about Pt should he call again. Also spoke with Augusto Cardenas ( Pt's AGED OR DISABLED CARER at [facility]). Spoke with Pt's home Health provider as well and asked them to call Pt. They reported Pt wasn't answering their calls. Spoke with Pt about the need to answer those calls. He restated that they hadn't called, no one has. Discussed Pt's concern about his del cid cath. Pt, as noted, is a poor historian and it was difficult to ascertain wether he would follow through caring for his catheter. Spoke with HH again and they said they would call. Pt called back to say they hadn't and I gave the Pt the direct line to the agency for him to call. We heard nothing more from him the rest of the shift. Coming in this morning to write this note I received a call from Augusto Cardenas saying the Pt had gone to [facility] ED too get his del cid attend to. Both Augusto and I will stay in touch as needed and I will pass this information on to the present Coordinator and case management.
== END 2020-02-25 13:48 | disposition home or self-care (01) | DRG 312 ==
LOC: ED 23:22 → AC 02-22 02:39
PROVIDERS: Internal Medicine; Admitting Provider Nurse Practitioner Family; Emergency Provider Emergency Medicine; Visit Provider Nurse Practitioner Family
DX: I95.1 Orthostatic hypotension (principal); C48.0 Malignant neoplasm of retroperitoneum; N30.00 Acute cystitis without hematuria; E87.1 Hypo-osmolality and hyponatremia; F84.0 Autistic disorder; I82.509 Chronic embolism and thrombosis of unspecified deep veins of unspecified lower extremity; D63.0 Anemia in neoplastic disease; N40.1 Benign prostatic hyperplasia with lower urinary tract symptoms; K59.00 Constipation, unspecified; R33.8 Other retention of urine; Z79.01 Long term (current) use of anticoagulants; Z03.818 Encounter for observation for suspected exposure to other biological agents ruled out
CPT/HCPCS: 36415; 36430; 51798; 70450; 71260; 74177; 80048; 80053; 80305; 80320; 81001; 84145; 85025; 86850; 86900; 86901; 87086; 87633; 87635; 97116; 97161; 97530; 99285; G0378; P9016; Q9967

== ENCOUNTER 2020-03-26 09:49 | Emergency (ER) | payer OTHER, SELFPAY ==
[2020-02-22 03:15] VITALS: BMI 18.6
[2020-03-26 10:12] VITALS: BP 132/82; PULSE 70; RESP 17; TEMP 36.8; O2SAT 100
[2020-03-26 11:30] VITALS: BP 136/76; PULSE 78; O2SAT 99
--- NOTE | 2020-03-26 12:07 | DI.RAD.S_ITS ---
PROCEDURE: XR ABDOMEN 1V INDICATIONS: Constipation TECHNIQUE: One view of the abdomen acquired. COMPARISON: [facility], CT, CT CHEST ABD PEL W CON, 02/24/2020, 14:38. [facility], CT, CT CHEST ABD PEL W CON, 02/22/2020, 0:40. [facility], CR, XR ABDOMEN 1 VIEW, 02/18/2020, 15:58. [facility], CR, XR ABDOMEN 1V, 01/25/2020, 16:12. FINDINGS: Surgical changes and devices: Numerous postoperative clips are seen, which are primarily seen within the left upper quadrant. A suprapubic catheter is seen. An apparent valve prosthesis can be seen. Bowel: Bowel gas pattern is normal. There is a moderate amount of stool seen within the colon. Soft tissues: No suspicious abdominal calcifications. Visualized solid organ contours appear normal in size. Bones: No suspicious bony lesions. IMPRESSION: There is a moderate amount of stool seen within the colon, which is consistent with the given history of constipation. Postoperative and degenerative changes are seen. Dictated by: Andrew Williamson M.D. on 03/26/2020 at 11:56 Approved by: Andrew Williamson M.D. on 03/26/2020 at 11:58
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
[2020-03-26 13:30] VITALS: BP 137/80; PULSE 100; O2SAT 91
[2020-03-26 13:38] VITALS: BP 137/81; PULSE 91; RESP 18; O2SAT 100
--- NOTE | 2020-03-26 13:45 | PC.NURSE ---
Assisted the provider with attempted disimpaction. Patient was not cooperative and stated we were too rough and need to be more gentle. Provider offered to try again and patient refused. He became more agitated and said we were not helping him. Again the provider attempted to inform patient of different options to which he refused.
[2020-03-26] MEDS: MAGNESIUM CITRATE 300 ML SOLUTION 150 ML PO (14:02)
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
== END 2020-03-26 14:19 | disposition home or self-care (01) ==
PROVIDERS: Emergency Provider Nurse Practitioner; PCP Family Medicine
DX: K59.09 Other constipation (principal); R33.9 Retention of urine, unspecified
CPT/HCPCS: 74018; 99283